=== PATIENT | female | born 1945 | race Caucasian/White ===

== ENCOUNTER → 2016-04-11 | Outpatient (CLI) | payer OTHER ==
[~2016-04-11] MED LIST: ALEN70TA2 PO; ALLO100T PO; ASPI-461 PO; CALC-20 PO; CHOL100027 PO; ENAL1TAB31 PO; HYDR25TA4 PO; LEVO100T PO; LPT/40 PO; METO-551 PO; NRV5 PO; OMEP20CA9 PO
[2016-04-11 13:24] LABS: ALT/SGPT 24 U/L (12-78); AST/SGOT 23 U/L (15-37); BLOOD UREA NITROGEN 19 mg/dl (7-18); BUN/CREATININE RATIO 25.1 (10-20); CALCIUM 8.9 mg/dl (8.5-10.1); CARBON DIOXIDE 29 mmol/L (21-32); CHLORIDE 104 mmol/L (98-107); CREATININE 0.77 mg/dl (0.60-1.20); GLUCOSE 100 mg/dl (70-99); POTASSIUM 3.6 mmol/L (3.5-5.1); SODIUM 141 mmol/L (136-145)
[2016-04-11 13:34] LABS: ALB/GLOB RATIO 0.8 (0.9-2); ALKALINE PHOSPHATASE 75 U/L (45-117); THYROID STIMULATING HORMONE 0.941 uIu/ml (0.300-4.500)
== END | disposition home or self-care (01) ==
LOC: C.LABPVFM 08:19
PROVIDERS: ATTEND Family Medicine
DX: E03.9 Hypothyroidism, unspecified (principal)

== ENCOUNTER → 2016-07-23 | Outpatient (CLI) | payer OTHER ==
[2016-07-23 12:11] LABS: ALT/SGPT 21 U/L (12-78); AST/SGOT 23 U/L (15-37)
[2016-07-23 12:16] LABS: ALT/SGPT 22 U/L (12-78); BLOOD UREA NITROGEN 16 mg/dl (7-18); BUN/CREATININE RATIO 20.7 (10-20); CARBON DIOXIDE 30 mmol/L (21-32); CHLORIDE 104 mmol/L (98-107); CREATININE 0.75 mg/dl (0.60-1.20); GLUCOSE 100 mg/dl (70-99); SODIUM 139 mmol/L (136-145)
[2016-07-23 12:19] LABS: ALB/GLOB RATIO 0.8 (0.9-2); ALKALINE PHOSPHATASE 77 U/L (45-117); AST/SGOT 25 U/L (15-37)
[2016-07-23 12:44] LABS: CHOLESTEROL/HDL RATIO 2.3
== END | disposition home or self-care (01) ==
LOC: C.LABPVFM 08:59
PROVIDERS: ATTEND Internal Medicine Cardiovascular Disease
DX: E78.00 Pure hypercholesterolemia, unspecified (principal); I65.29 Occlusion and stenosis of unspecified carotid artery

== ENCOUNTER → 2016-09-07 | Outpatient (CLI) | payer OTHER ==
--- NOTE | 2016-09-07 16:01 | MAMMOGRAPHY REPORT ---
BILATERAL DIGITAL SCREENING MAMMOGRAM WITH CAD: 09/07/2016 CLINICAL HISTORY: Routine screening. Patient has no complaints. TECHNIQUE: Bilateral CC and MLO views were obtained. Additional CC views were performed with nipple s in profile. Current study was also evaluated with a Computer Aided Detection (CAD) system. COMPARISON: Comparison is made to exams dated: 09/04/2015 mammogram, 08/07/2014 mammogram, 08/04/2013 mamm ogram, 08/03/2012 mammogram, 03/27/2011 mammogram - [facility], and 03/05/2008. BREAST COMPOSITION: The tissue of both breasts is almost entirely fatty. FINDINGS: There is a small cluster of microcalcifications in the central right breast for which tay tional spot magnification views are recommended. There is a benign rim calcification within the left breast. No other suspicious mass, architectural d istortion or cluster of microcalcifications is seen. IMPRESSION: ACR BI-RADS CATEGORY 0: INCOMPLETE EVALUATION: NEED ADDITIONAL IMAGING EVALUATION The small cluster of microcalcifications in the central right breast needs additional evaluation. The patient will be called to schedule an appointment. Approximately 10% of breast cancers are not detected with mammography. A negative mammographic report should not delay biopsy if a clinically suggestive mass is present. Olga Lidia Daniels M.D. ay/:09/07/2016 15:37:38 Sales Engagement Manager: Yovani RIDER(Tito)(M), [facility] letter sent: Addl Imaging 0 BI-RADS Code: ACR BI-RADS Category 0: Incomplete Evaluation: Need Additional Imaging Evaluation
== END | disposition home or self-care (01) ==
LOC: C.MAMM 08:08
PROVIDERS: ATTEND Family Medicine
DX: Z12.31 Encounter for screening mammogram for malignant neoplasm of breast (principal); R92.0 Mammographic microcalcification found on diagnostic imaging of breast

== ENCOUNTER → 2016-09-14 | Outpatient (CLI) | payer OTHER ==
--- NOTE | 2016-09-14 13:13 | MAMMOGRAPHY REPORT ---
UNILATERAL RIGHT DIGITAL DIAGNOSTIC MAMMOGRAM: 09/14/2016 CLINICAL HISTORY: 71-year-old woman called back from screening mammography for a small cluster of rolf rocalcifications in the medial right breast. TECHNIQUE: Spot magnification right CC and ML views were obtained. COMPARISON: Comparison is made to exams dated: 09/07/2016 mammogram, 09/04/2015 mammogram, 08/07/2014 mamm ogram, 08/04/2013 mammogram, 08/03/2012 mammogram, and 03/27/2011 mammogram - [facility] BREAST COMPOSITION: There are scattered areas of fibroglandular density in the right breast. FINDINGS: There is a 3.4 x 1.7 mm cluster of round and punctate microcalcifications and associated n odularity in the approximate 3:00 middle one third of the right breast. When comparing to prior [facility] lable for field mammograms, there appears to be a few more microcalcifications within this grouping c ompared to more remote exams. Although this could represent a degenerating fibroadenoma or fibrocyst ic changes, DCIS cannot be completely excluded. Definitive characterization with tissue sampling is recommended. IMPRESSION: ACR BI-RADS CATEGORY 4B: INTERMEDIATE SUSPICION FOR MALIGNANCY 1. Right breast stereotactic guided biopsy is recommended for an indeterminate 3.4 x 1.7 mm cluster of microcalcifications in the 3:00 right breast. These results and recommendations were discussed with the patient at the time of the exam. She tenta tively scheduled the biopsy prior to leaving our department. Approximately 10% of breast cancers are not detected with mammography. A negative mammographic report should not delay biopsy if a clinically suggestive mass is present. Olga Lidia Daniels M.D. ay/:09/14/2016 10:48:02 Chief Operations Officer: Janet Fisher, [facility] letter sent: Abnormal 4/5 BI-RADS Code: ACR BI-RADS Category 4B: Intermediate Suspicion For Malignancy
== END | disposition home or self-care (01) ==
LOC: C.MAMM 09:38
PROVIDERS: ATTEND Family Medicine
DX: R92.0 Mammographic microcalcification found on diagnostic imaging of breast (principal); I73.9 Peripheral vascular disease, unspecified

== ENCOUNTER → 2016-09-14 | Outpatient (CLI) | payer OTHER ==
--- NOTE | 2016-09-14 12:15 | DIAGNOSTIC IMAGING REPORT ---
ARTERIAL DOPPLER ULTRASOUND LOWER EXTREMITIES BILATERAL CLINICAL HISTORY: INTERMITTENT CLAUDICATION COMPARISON STUDY: No previous studies for comparison. FINDINGS: Brachial arm systolic pressures were 174 mmHg on the right and 156 mmHg on the left. Posterior tibial systolic pressures were 78 mmHg on the right and 110 mmHg on the left. Dorsalis pedis systolic pressures were 53 mmHg on the right and 130 mmHg on the left. This yields diminished ankle arm indices of 0.5 and the right and 0.8 on the left. On the right there is monophasic flow within the right common femoral artery. This is indirect evidence for a more proximal stenosis. There is monophasic flow within the superficial femoral artery, popliteal artery, posterior tibial artery, peroneal artery, and anterior tibial artery. No high velocity jets were visualized. On the left, there is mixed monophasic and biphasic flow within the left common femoral and superficial femoral arteries. There is mixed monophasic and biphasic flow within the popliteal anterior tibial posterior tibial and peroneal arteries. No high velocity jets are visualized. IMPRESSION: 1. Diminished bilateral ankle arm indices of 0.5 in the right and 0.8 on the left 2. Monophasic flow throughout the right lower extremity, and mixed monophasic and biphasic flow throughout the left lower extremity. 3. The findings suggest a more proximal stenosis. Imaging of the aortic and iliac vessels is suggested in follow-up Electronically signed by: Isidoro Hooper M.D. 09/14/2016 12:13 PM Dictated Date/Time: 09/14/2016 12:09 PM
== END | disposition home or self-care (01) ==
LOC: C.ULTR 10:43
PROVIDERS: ATTEND Family Medicine
DX: I73.9 Peripheral vascular disease, unspecified (principal)

== ENCOUNTER → 2016-09-22 | Outpatient (CLI) | payer OTHER ==
--- NOTE | 2016-09-22 13:16 | Discharge Instructions ---
Discharge Instructions Procedure Procedure Date: Sep 22, 2016. Reason for visit: Rt Calcs. Discharge Discharge Date: Sep 22, 2016. Discharge Diagnosis: post right breast stereotactic guided biopsy Medications Restart Stopped Medication(s): May restart Aspirin today. Instructions Activity Recommendations: Additional Limitations (see below) Return to School/Work: no limitations Recommended Home Diet: No Limitations Provider Instructions: ACTIVITY RECOMMENDATIONS: * No lifting, pushing, pulling or exercising the affected side for three days. RETURN TO SCHOOL/WORK: * You may return to work/school after the procedure, but do not perform any strenuous activities for 24 to 48 hours. MEDICATIONS: * Tylenol (two 325 mg) every four to six hours if needed for mild pain (if not allergic to Tylenol). DIET: * Resume previous diet. SPECIAL CARE INSTRUCTIONS: * Keep biopsy site dry for 24 hours. May shower after 24 hours, but do not soak (bathe) incision. * May remove Tegaderm (plastic patch) tomorrow AFTER showering. * Leave the steri-strips on for one week. Allow the steri-strips to fall off by themselves. If not off after one week, you may remove them. You may place a Bandaid crosswise over the strips, if desired. * Apply ice 10 minutes on and 10 minutes off as needed. * Wear a bra at bedtime to sleep more comfortably for 2-3 days. * Your referring physician should have the results after approximately 5 to 7 business days. * Call for unusual bleeding, fever, drainage, etc or if you have any questions call [phone] during normal business hours or after hours call Dr Daniels, . FOLLOW UP VISIT: Follow-up with Referring Physician as scheduled. Allergies Coded Allergies: Acetaminophen (Verified Adverse Reaction, Intermediate, VOMITING, 06/07/14) Hydrocodone (Verified Adverse Reaction, Intermediate, VOMITING, 06/07/14) Marge Christensen Recommendations: Call your doctor if: * Temperature above 101 degrees * Pain not relieved by pain medicine ordered * There is increased drainage or redness from any incision * You have any unanswered questions or concerns. Your Doctors Instructions noted above were prepared by provider Olga Lidia Daniels. Patient Signature Section: Patient Instructions Signature Page Renuka Jones Patient (or Guardian) Signature/Date: I have read and understand the instructions given to me by my caregivers. Caregiver/RN/Doctor Signature/Date: The above-named patient and/or guardian has received patient instructions on this date. + Original Patient Signature Page (only) stays with chart. Please make copy for patient.
--- NOTE | 2016-09-22 14:15 | MAMMOGRAPHY REPORT ---
STEREOTACTIC GUIDED BIOPSY RIGHT BREAST: 09/22/2016 CLINICAL HISTORY: Small indeterminate clustered microcalcifications in the upper inner quadrant of th e right breast. Patient presents for stereotactic biopsy. COMPARISON: Comparison is made to exams dated: 09/14/2016 mammogram, 09/07/2016 mammogram, 09/04/2015 calin mogram, 08/07/2014 mammogram, 08/04/2013 mammogram, and 08/03/2012 mammogram - [facility] . PATIENT CONSENT: After explaining the risks, benefits and alternatives of the procedure to the patien t, informed consent was obtained both verbally and in writing. Specific risks include: Bleeding, inf ection, puncture of adjacent structure, pain, nontarget biopsy, sampling error, metal allergy and med ication reaction. PROCEDURE DESCRIPTION: A time-out was performed and the right breast was confirmed as the site of bio psy. The patient was placed prone on the stereotactic biopsy table and the breast was placed in media llateral compression. A store gift wrap associate image was obtained that demonstrated the clustered microcalcifications in question. They are amenable to sterotactic biopsy. Then +15 and -15 stereo pair images were ob tained. The calcifications were targeted utilizing the coordinates obtained by the computer. The ski n was prepped with Betadine. 1% Lidocaine with and without epinipherine was administered as local ane sthesia. A small skin incision was made. Through the incision, the needle was inserted to the depth determined by the computer. 9 samples were obtained using a [employer] 9-gauge vacuum-assisted biops y device. The specimen radiograph demonstrated several registration representative microcalcifications, therefore, a metallic marker was placed at the biopsy site. There was no immediate complication. Hemostasis was achieved after several minutes of manual compression. The samples were sent to pathology in two mariajose ropriately labeled containers, "with calcifications" and "without calcifications". All of the samples were obtained from the same single biopsy site. Postprocedure CC and ML views of the right breast were obtained. A new metallic biopsy marker is se en in the upper outer quadrant and there is no significant postbiopsy hematoma. (The calcifications were previously located in the upper inner quadrant) Based on the CC projection, the biopsy marker is displaced laterally by 4 cm from the prior location of the calcifications. It likely deployed towar ds the distal end of the biopsy cavity as opposed to the center. This is noted in case any further e xcisional biopsy is needed. IMPRESSION: STEREOTACTIC GUIDED BIOPSY Status post right breast stereotactic guided biopsy of a small cluster of microcalcifications in the upper inner quadrant. A biopsy marker was placed at the site, but is displaced laterally towards the distal end of the biopsy cavity. The patient will receive notification of the biopsy results from her referring physician. Olga Lidia aDniels M.D. ay/:09/22/2016 13:34:54 Tube Carrier: Rosangela RIDER(Tito)([place]), [facility]
--- NOTE | 2016-09-22 14:15 | MAMMOGRAPHY REPORT ---
UNILATERAL RIGHT DIGITAL DIAGNOSTIC MAMMOGRAM: 09/22/2016 CLINICAL HISTORY: Status post right breast stereotactic biopsy of a small cluster of microcalcificati ons in the upper inner quadrant of the right breast. Please refer to the report from right breast stereotactic biopsy performed at the same time for full detail. IMPRESSION: POST PROCEDURE IMAGING FOR MARKER PLACEMENT Please refer to the report from right breast stereotactic biopsy performed at the same time for full detail. Approximately 10% of breast cancers are not detected with mammography. A negative mammographic report should not delay biopsy if a clinically suggestive mass is present. Olga Lidia Daniels M.D. ay/:09/22/2016 13:18:27 Woven Label Designer: Rosangela BEAULIEU)([place]), [facility] BI-RADS Code: Post Procedure Imaging For Marker Placement
== END | disposition home or self-care (01) ==
LOC: C.MAMM 12:19
PROVIDERS: ATTEND Family Medicine
DX: R92.0 Mammographic microcalcification found on diagnostic imaging of breast (principal)

== ENCOUNTER → 2017-01-20 | Outpatient (CLI) | payer OTHER ==
[2017-01-20 13:20] LABS: CHOLESTEROL/HDL RATIO 2.3
== END | disposition home or self-care (01) ==
LOC: C.LABPVFM 09:04
PROVIDERS: ATTEND Internal Medicine Cardiovascular Disease
DX: E78.00 Pure hypercholesterolemia, unspecified (principal)

== ENCOUNTER → 2017-04-29 | Outpatient (CLI) | payer OTHER ==
[2017-04-29 13:39] LABS: BLOOD UREA NITROGEN 19 mg/dl (7-18); CALCIUM 9.3 mg/dl (8.5-10.1); CARBON DIOXIDE 30 mmol/L (21-32); CREATININE 0.76 mg/dl (0.60-1.20); GLUCOSE 96 mg/dl (70-99); POTASSIUM 3.7 mmol/L (3.5-5.1); SODIUM 139 mmol/L (136-145)
== END | disposition home or self-care (01) ==
LOC: C.LABPVFM 08:02
PROVIDERS: ATTEND Family Medicine
DX: I10 Essential (primary) hypertension (principal); E03.9 Hypothyroidism, unspecified

== ENCOUNTER → 2017-07-30 | Outpatient (CLI) | payer OTHER | END | disposition home or self-care (01) | LOC: C.LABPVFM 07:51 | PROVIDERS: ATTEND Family Medicine | DX: E78.00 Pure hypercholesterolemia, unspecified (principal); E03.9 Hypothyroidism, unspecified; I25.10 Atherosclerotic heart disease of native coronary artery without angina pectoris ==

== ENCOUNTER 2020-06-20 11:46 | Inpatient (IN) ==
[2020-06-20] MEDS ORDERED: SODIUM CHLORIDE 0.9% 500 ML IV ONE (12:30)
[2020-06-20 12:58] LABS: Alanine Aminotransferase 31 U/L (12-78); Albumin Level 3.4 gm/dl (3.4-5.0); Aspartate Aminotransferase 31 U/L (15-37); BUN Creatinine Ratio 23.7 (10-20); Bilirubin Direct < 0.1 mg/dl (0-0.2); Blood Urea Nitrogen 21 mg/dl (7-18); Calcium 8.7 mg/dl (8.5-10.1); Carbon Dioxide 27 mmol/L (21-32); Chloride 108 mmol/L (98-107); Creatinine Clr Calc Pharmacy 54.5 ml/min; Est GFR (African American) 72.5; Est GFR (Non-African American) 62.5; Glucose 95 mg/dl (70-99); Lipase 260 U/L (73-393); Magnesium 1.5 mg/dl (1.8-2.4); Potassium 3.8 mmol/L (3.5-5.1); Sodium 140 mmol/L (136-145)
[2020-06-20 13:06] LABS: Albumin Globulin Ratio 0.8 (0.9-2); Alkaline Phosphatase 84 U/L (45-117); Bilirubin,Total 0.3 mg/dl (0.2-1); Globulin 4.3 gm/dl (2.5-4.0); Phosphorus 3.4 mg/dl (2.5-4.9); Total Protein 7.7 gm/dl (6.4-8.2); Troponin I < 0.015 ng/ml (0-0.045)
--- NOTE | 2020-06-20 13:11 | XRay Report ---
XR chest 1V portable HISTORY: Atypical Chest Pain COMPARISON: Chest 06/09/2014. FINDINGS: No pneumothorax. No pleural effusions. The cardiac silhouette remains mildly enlarged. Ther e are poststernotomy changes. No evidence for pulmonary edema. No new focal lung consolidations to mendez ggest pneumonia. Slightly rotated study. Emphysema. IMPRESSION: Stable mild cardiomegaly and emphysema. Otherwise, no acute process within the chest. ACT 112: Negative or not required by law. Electronically signed by: Jordan Donato M.D. 06/20/2020 1:09 PM
[2020-06-20 13:28] LABS: Appearance Urine Clear (Clear); Bacteria Urine Automated Negative (Negative); Bilirubin Urine Negative (Negative); Blood Urine Trace (Negative); Cast Urine Automated 0 /lpf (0-5); Color Urine Yellow; Epithelial Cell Urine Auto 20-30 /lpf (0-5); Glucose Urine UA Negative (Negative); Ketones Urine Negative (Negative); Leukocyte Esterase Urine Negative (Negative); Nitrite Urine Negative (Negative); Protein Urine 2+ (Negative); Specific Gravity Urine 1.012 (1.000-1.030); Urobilinogen Urine Negative (Negative)
[2020-06-20 13:32] LABS: Basophils # (auto) 0.01 K/uL (0-0.2); Basophils % (auto) 0.2 %; Eosinophils # (auto) 0.07 K/uL (0-0.5); Eosinophils % (auto) 1.1 %; Hematocrit (blood only) 38.4 % (37-47); Hemoglobin 12.8 g/dL (12.0-16.0); Immature Granulocytes # (auto) 0.01 K/uL (0.00-0.02); Immature Granulocytes % (auto) 0.2 %; Lymphocytes % (auto) 30.3 %; Mean Corpuscular Hgb Conc 33.3 g/dL (32-36); Mean Corpuscular Volume 87.1 fL (80-100); Mean Platelet Volume 11.5 fL (7.4-10.4); Monocytes # (auto) 0.61 K/uL (0.11-0.59); Monocytes % (auto) 9.2 %; Neutrophils # (auto) 3.91 K/uL (1.4-6.5); Platelet Count 181 K/uL (130-400); RBC Morphology Unremarkable; RDW Coefficient of Variation 13.9 % (11.5-14.5); RDW Standard Deviation 44.3 fL (36.4-46.3); Red Blood Count 4.41 M/uL (4.2-5.4); White Blood Count 6.61 K/uL (4.8-10.8)
--- NOTE | 2020-06-20 13:34 | Emergency Department Note ---
Impression & Plan Heart block AV complete, Hypertension, Dizziness, Hypomagnesemia ED Provider Note NAME: NAKUL CHRISTINA AGE: 75 SEX: F ARRIVES VIA: Ambulance INFORMANT: Patient, ED PROVIDER(S): Jelani Bobby MD CHIEF COMPLAINT: Dizziness PLAN: Disposition: Admit MEDICAL DECISION MAKING: The patient is a pleasant 75-year-old woman with a past medical history of CAD/NSTEMI, hypertension, hyperlipidemia, aortic stenosis who presents emergency department after feeling lightheaded when she was at the grocery store after standing up from bending down to get something off a lower shelf. Upon arrival she reports the symptoms have essentially resolved. She denies any recent illness including fevers, chills, cough, congestion, GI or symptoms. She reports she has completed both series of her COVID-19 vaccination. She did have Covid-19 in March 2020. On arrival the patient is fatigued appearing but no distress, afebrile with blood pressure elevated 220/70s and otherwise stable vital signs. On exam the patient appears clinically dry. She has no focal neurologic deficits. Initial EKG interpreted by machine to be A. fib however close review suggests most likely sinus rhythm with first-degree AV block with intermittent PVCs, right bundle branch block is similar to June 2014 though component of left anterior fascicular block is new. Chest x-ray negative for acute cardiopulmonary process. WBC, H/H and platelets within normal limits. Chemistry without metabolic acidosis. BUN/creatinine> 20 consistent with the patient's clinically dry appearance. Magnesium 1.5 with repletion provided. Electrolytes otherwise unremarkable. Troponin negative/undetectable. TSH within normal limits. UA without convincing evidence of infection. COVID-19 RNA, NAAT was negative. On reevaluation the patient did feel some improvement after hydration however when she attempted to stand up and ambulate she became severely dizzy again and so given the patient's persistent symptoms CTA of the head and neck was ordered. Repeat EKG was performed and heart rate had decreased to 60 bpm suspicion for possible second-degree Mobitz type I block versus first-degree AV block with atrial ectopic beats. CT of the head and neck with subsequent unremarkable without ICH, ischemia or severe narrowing occlusion of large vessels. I did review the patient's results with her at the bedside and she ultimately was agreeable with plan for admission given her continued symptoms. The patient's persistent elevated blood pressure having missed her medications she was given her dose of enalapril however metoprolol was held given her bradycardia. Subsequently, the patient had spontaneous episode of complete heart block where at least 6-7 atrial beats were nonconducting ~3-4s which correlated to patient's complaint of feeling as though she was going to blackout. Pacer pads were placed on the patient's chest as a precaution. Following her episode repeat EKG appeared to show Mobitz type I block versus atrial ectopic rhythm with HR 50s. Case was discussed with Dr. Faith, [facility] hospitalist, who will evaluate the patient for admission. Case was also reviewed with Dr. Allen, [place] cardiology on-call, who was already aware of the patient from admitting team. Agrees with pacer pads as precaution and trial of Atropine for repeat symptomatic episode and close monitoring given high grade block. Triage Nursing notes reviewed and agree them. Prior medical records reviewed Vital Signs: reviewed and remarkable for Hypertension, bradycardia Differential diagnosis: Benign positional vertigo, dehydration, hypovolemia, anemia, tumor, infection, hypoglycemia, electrolyte abnormalities, cardiac sources, intracerebral event, toxicologic, neurologic, as well as other pathologies. ER treatment provided: See below. Diagnostics interpreted by me: ECG: Sinus rhythm, 80 bpm, intermittent PVCs, first-degree AV block, right bundle branch block and left anterior fascicular block, no overt ST elevation. Right bundle branch block similar to June 2014 Cardiac Monitoring: An order for continuous cardiac monitoring was placed and demonstrated sinus bradycardia, 51 bpm, intermittent PVCs. Laboratory studies: See below Imaging studies: XR chest 1V portable HISTORY: Atypical Chest Pain COMPARISON: Chest 06/09/2014. FINDINGS: No pneumothorax. No pleural effusions. The cardiac silhouette remains mildly enlarged. There are poststernotomy changes. No evidence for pulmonary edema. No new focal lung consolidations to suggest pneumonia. Slightly rotated study. Emphysema. IMPRESSION: Stable mild cardiomegaly and emphysema. Otherwise, no acute process within the chest. ACT 112: Negative or not required by law. -- HEAD CT NONCONTRAST CT DOSE: HISTORY: dizziness, imbalance TECHNIQUE: Multiaxial CT images of the head were performed without the use of intravenous contrast. Automated exposure control was utilized for this study. A dose lowering technique was utilized adhering to the principles of ALARA. Comparison: None. Findings: The paranasal sinuses and mastoid air cells are clear. The calvarium and skull base are intact. The ventricles and sulci are within normal limits. There is no mass, hematoma, midline shift, or acute infarct. Impression: No acute intracranial abnormality. ACT 112: Negative or not required by law. HEAD & NECK CTA HISTORY: dizziness, imbalance TECHNIQUE: Multiaxial CT images of the head were performed following the intravenous administration of contrast to evaluate the major cerebral vessels. Multiaxial CT images of the neck were also performed following the intravenous administration of contrast to evaluate the major cervical vessels. Maximum intensity projection images were also obtained. A dose lowering technique was utilized adhering to the principles of ALARA. COMPARISON: None. FINDINGS: There is no mass, hematoma, midline shift, or acute infarct. Visualized intracranial internal carotid arteries, distal vertebral arteries, and basilar artery are widely patent. There is a 3 mm right supraclinoid ICA aneurysm best seen on image 118 of series 5. There is no significant stenosis, occlusion, or aneurysm seen within the bilateral ACAs, MCAs, or music educator. The major dural venous sinuses appear patent. The aortic arch and proximal great vessels are widely patent. There is no significant stenosis, occlusion, or dissection identified within the bilateral common carotid, internal carotid, or vertebral arteries. Severe emphysema. Poststernotomy changes. IMPRESSION: 1. A 3 mm right supraclinoid ICA aneurysm. 2. No significant stenosis or occlusion within the [place]. 3. No significant stenosis, occlusion, or dissection identified within the carotid or vertebral arteries. ACT 112: Negative or not required by law. Electronically signed by: Jordan Donato M.D. 06/20/2020 4:36 PM Consultation(s): Dr. Faith, [facility] hospitalist. Dr. Allen, [place] cardiology on-call HPI: The patient is a pleasant 75-year-old woman with a past medical history of CAD/NSTEMI, hypertension, hyperlipidemia, aortic stenosis who presents emergency department after feeling lightheaded when she was at the grocery store after standing up from bending down to get something off a lower shelf. Upon arrival she reports the symptoms have essentially resolved. She denies any recent illness including fevers, chills, cough, congestion, GI or symptoms. She reports she has completed both series of her COVID-19 vaccination. She did have Covid-19 in March 2020. ROS: See above HPI for pertinent positives & negatives. A total of 10 systems reviewed and were otherwise negative. PAST MEDICAL HISTORY:See Below PAST SURGICAL HISTORY:See Below FAMILY HISTORY:See Below SOCIAL HISTORY:See Below HOME MEDICATIONS:See Below ALLERGIES:See Below VITALS:See Below PHYSICAL EXAMINATION: GENERAL: Awake, alert, fatigued-appearing, in no distress HENT: Normocephalic, atraumatic. Oropharynx with dry mucous membranes and otherwise unremarkable. EYES: Normal conjunctiva. Sclera non-icteric. NECK: Supple. No nuchal rigidity. FROM. No JVD. RESPIRATORY: Clear to auscultation. CARDIAC: Regular rate, normal rhythm. Extremities warm and well perfused. Pulses equal. ABDOMEN: Soft, non-distended. No tenderness to palpation. No rebound or guarding. No masses. RECTAL: Deferred. MUSCULOSKELETAL: Chest examination reveals no tenderness. The back is symmetrical on inspection without obvious abnormality. There is no CVA tenderness to palpation. No joint edema. LOWER EXTREMITIES: Calves are equal size bilaterally and non-tender. No edema. No discoloration. NEURO: Normal sensorium. No sensory or motor deficits noted. 5/5 strength and SILT x 4 extremities. Cerebellar function intact including [id number], alternating palms, [id number]. SKIN: No rash or jaundice noted. ED COURSE: Critical Care: I have personally spent greater than 35 minutes of critical care time in the direct management of this patient. This includes bedside care, interpretation of diagnostic studies, and testing, discussion with consultants, patient, and family members, and other required patient management activities. This 35 minutes is in excess of all separately billable procedures. Jelani Bobby MD Past Med/Surg History Medical History Ambulatory dysfunction Aortic stenosis Arteriosclerotic cardiovascular disease Carotid atherosclerosis Cerebral artery occlusion Eczema Gout HTN (hypertension) Hypercholesterolemia Hyperglycemia Hyperlipidemia Hypothyroidism Intermittent claudication Osteoporosis Radiculopathy Surgical History Hx of heart surgery Hx of knee surgery Family History Mother Alcohol abuse H/O oral cancer Brother Parkinson disease, symptomatic Colon cancer Denies family history of Ovarian cancer Prostate cancer Myocardial infarction Breast cancer Colorectal cancer Social History Smoking Status: Former smoker Second Hand Exposure: No; Do You Dip or Chew Tobacco: No; Tobacco Cessation Education Requested by Patient: No Hx Alcohol Use: No Hx Substance Use: No Preferred Language: Sami Communication Ability: Effective Beliefs That Will Affect Care: None marital status: Current Living Situation: Spouse current occupational status: retired Other Information That Helps Us Care for You: No Feels Safe at Home: Yes Safety Concerns: Feels Safe At This Time caffeine: No Dental Care, Regularly: Yes Physical Activity Frequency: Daily Seatbelt Use: always Sunscreen Use: Yes Assistive Devices: Denture - Upper and Glasses Allergies Allergies Allergy/AdvReac Type Severity Reaction Status Date / Time acetaminophen AdvReac Intermediate VOMITING Verified 06/20/20 14:26 hydrocodone AdvReac Intermediate VOMITING Verified 06/20/20 14:26 Home Meds Home Medications Medication Instructions Recorded Confirmed cholecalciferol (vitamin D3) 25 1,000 units PO DAILY 11/16/18 06/20/20 mcg (1,000 unit) capsule hydrochlorothiazide 25 mg tablet 25 mg PO DAILY tab 11/23/19 06/20/20 aspirin [Adult Aspirin Regimen] 81 mg PO QAM 06/20/20 06/20/20 Previous Rx's Medication Instructions Recorded atorvastatin 20 mg tablet 20 mg PO QPM #90 tab 09/14/19 enalapril maleate 20 mg tablet 20 mg PO BID #180 tab 09/14/19 omeprazole 20 mg capsule,delayed 20 mg PO DAILY #90 cap 11/02/19 release metoprolol succinate 100 mg 100 mg PO BID #180 tab 03/25/20 tablet,extended release 24 hr allopurinol 100 mg tablet 100 mg PO DAILY #90 ea 04/02/20 levothyroxine 88 mcg tablet 88 mcg PO DAILY #90 ea 04/02/20 Results & Data (ED) Vital Signs Vital Signs - 24 hr 06/20/20 11:46 06/20/20 13:01 06/20/20 13:05 Temperature 36.7 C Temperature Source Oral Pulse Rate 79 68 79 Pulse Rate [Apical] 79 80 Pulse Rate from SpO2 Sensor Pulse Rhythm Irregular Irregular Pulse Rhythm [Apical] Irregular Pulse Strength Normal Pulse Strength [Apical] Normal Respiratory Rate 16 21 20 Respiratory Effort / Characteristics Non-Labored Spontaneous Respiratory Depth Normal Respiratory Pattern Regular Blood Pressure 220/72 H 225/77 H Blood Pressure [Right Arm] 220/72 H 181/128 H Blood Pressure Mean 121 126 Blood Pressure Mean [Right Arm] 121 145 Blood Pressure Position Lying Blood Pressure Position [Right Arm] Lying Pulse Oximetry 95 95 98 Oxygen Delivery Method Room Air Room Air Sepsis Recent Fever Within 48 Hours No Sepsis New/Unexplained Change in Mental Status N/A Sepsis Action Taken by Nursing No Action Required 06/20/20 13:25 06/20/20 13:30 06/20/20 13:31 Temperature Temperature Source Pulse Rate 71 80 79 Pulse Rate [Apical] Pulse Rate from SpO2 Sensor Pulse Rhythm Pulse Rhythm [Apical] Pulse Strength Pulse Strength [Apical] Respiratory Rate 14 17 21 Respiratory Effort / Characteristics Respiratory Depth Respiratory Pattern Blood Pressure 205/96 H Blood Pressure [Right Arm] Blood Pressure Mean 132 Blood Pressure Mean [Right Arm] Blood Pressure Position Blood Pressure Position [Right Arm] Pulse Oximetry 95 96 95 Oxygen Delivery Method Sepsis Recent Fever Within 48 Hours Sepsis New/Unexplained Change in Mental Status Sepsis Action Taken by Nursing 06/20/20 13:32 06/20/20 14:00 06/20/20 14:02 Temperature Temperature Source Pulse Rate 76 68 76 Pulse Rate [Apical] Pulse Rate from SpO2 Sensor 72 76 Pulse Rhythm Pulse Rhythm [Apical] Pulse Strength Pulse Strength [Apical] Respiratory Rate 20 18 20 Respiratory Effort / Characteristics Respiratory Depth Respiratory Pattern Blood Pressure 227/91 H Blood Pressure [Right Arm] Blood Pressure Mean 136 Blood Pressure Mean [Right Arm] Blood Pressure Position Blood Pressure Position [Right Arm] Pulse Oximetry 97 96 Oxygen Delivery Method Sepsis Recent Fever Within 48 Hours Sepsis New/Unexplained Change in Mental Status Sepsis Action Taken by Nursing 06/20/20 14:06 06/20/20 14:07 06/20/20 14:30 Temperature Temperature Source Pulse Rate 74 70 67 Pulse Rate [Apical] Pulse Rate from SpO2 Sensor 74 71 66 Pulse Rhythm Pulse Rhythm [Apical] Pulse Strength Pulse Strength [Apical] Respiratory Rate 19 16 21 Respiratory Effort / Characteristics Respiratory Depth Respiratory Pattern Blood Pressure 236/84 H Blood Pressure [Right Arm] Blood Pressure Mean 134 Blood Pressure Mean [Right Arm] Blood Pressure Position Blood Pressure Position [Right Arm] Pulse Oximetry 98 97 95 Oxygen Delivery Method Sepsis Recent Fever Within 48 Hours Sepsis New/Unexplained Change in Mental Status Sepsis Action Taken by Nursing 06/20/20 14:31 06/20/20 14:32 06/20/20 15:00 Temperature Temperature Source Pulse Rate 65 74 Pulse Rate [Apical] Pulse Rate from SpO2 Sensor 71 76 50 L Pulse Rhythm Pulse Rhythm [Apical] Pulse Strength Pulse Strength [Apical] Respiratory Rate 17 18 22 Respiratory Effort / Characteristics Respiratory Depth Respiratory Pattern Blood Pressure 214/89 H Blood Pressure [Right Arm] Blood Pressure Mean 130 Blood Pressure Mean [Right Arm] Blood Pressure Position Blood Pressure Position [Right Arm] Pulse Oximetry 96 96 93 Oxygen Delivery Method Sepsis Recent Fever Within 48 Hours Sepsis New/Unexplained Change in Mental Status Sepsis Action Taken by Nursing 06/20/20 15:30 06/20/20 16:31 06/20/20 16:40 Temperature Temperature Source Pulse Rate 57 L 56 L 44 L Pulse Rate [Apical] Pulse Rate from SpO2 Sensor 59 L 45 L 44 L Pulse Rhythm Pulse Rhythm [Apical] Pulse Strength Pulse Strength [Apical] Respiratory Rate 16 21 19 Respiratory Effort / Characteristics Respiratory Depth Respiratory Pattern Blood Pressure 213/59 H Blood Pressure [Right Arm] Blood Pressure Mean 110 Blood Pressure Mean [Right Arm] Blood Pressure Position Blood Pressure Position [Right Arm] Pulse Oximetry 94 96 95 Oxygen Delivery Method Sepsis Recent Fever Within 48 Hours Sepsis New/Unexplained Change in Mental Status Sepsis Action Taken by Nursing 06/20/20 17:01 06/20/20 17:31 Temperature Temperature Source Pulse Rate 45 L 44 L Pulse Rate [Apical] Pulse Rate from SpO2 Sensor 45 L 44 L Pulse Rhythm Pulse Rhythm [Apical] Pulse Strength Pulse Strength [Apical] Respiratory Rate 13 19 Respiratory Effort / Characteristics Respiratory Depth Respiratory Pattern Blood Pressure 227/79 H 235/72 H Blood Pressure [Right Arm] Blood Pressure Mean 128 126 Blood Pressure Mean [Right Arm] Blood Pressure Position Blood Pressure Position [Right Arm] Pulse Oximetry 95 95 Oxygen Delivery Method Sepsis Recent Fever Within 48 Hours Sepsis New/Unexplained Change in Mental Status Sepsis Action Taken by Nursing Laboratory Data Attestation: I reviewed the patient's lab results. Result diagrams: 06/20/20 12:09 06/20/20 20:53 Lab Results 06/20/20 06/20/20 06/20/20 Range/Units 12:04 12:09 12:09 WBC 6.61 (4.8-10.8) K/uL RBC 4.41 (4.2-5.4) M/uL Hgb 12.8 (12.0-16.0) g/dL POC Hgb (12.0-16.0) g/dl Hct 38.4 (37-47) % POC Hct (37-47) % MCV 87.1 (80-100) fL MCH 29.0 (25-34) pg MCHC 33.3 (32-36) g/dL RDW Std Deviation 44.3 (36.4-46.3) fL RDW Coeff of Chani 13.9 (11.5-14.5) % Plt Count 181 (130-400) K/uL MPV 11.5 H (7.4-10.4) fL Immature Gran % (Auto) 0.2 % Neut % (Auto) 59.0 % Lymph % (Auto) 30.3 % [place] % (Auto) 9.2 % Eos % (Auto) 1.1 % Baso % (Auto) 0.2 % Neut # (Auto) 3.91 (1.4-6.5) K/uL Lymph # (Auto) 2.00 (1.2-3.4) K/uL [place] # (Auto) 0.61 H (0.11-0.59) K/uL Eos # (Auto) 0.07 (0-0.5) K/uL Baso # (Auto) 0.01 (0-0.2) K/uL Immature Gran # (Auto) 0.01 (0.00-0.02) K/uL RBC Morphology Unremarkable POC Sodium (135-144) mmol/L Sodium 140 (136-145) mmol/L POC Potassium (3.3-5.0) mmol/L Potassium 3.8 (3.5-5.1) mmol/L POC Chloride (101-112) mmol/L Chloride 108 H (98-107) mmol/L Carbon Dioxide 27 (21-32) mmol/L POC Total CO2 (24-31) mmol/L Anion Gap 5.0 (3-11) POC Anion Gap (16-25) mmol/L POC BUN (7-18) mg/dl BUN 21 H (7-18) mg/dl Creatinine 0.90 (0.6-1.2) mg/dl POC Creatinine (0.6-1.3) mg/dl Est Cr Clr Drug Dosing 54.5 ml/min Est GFR ( Amer) 72.5 Est GFR (Non-Af Amer) 62.5 BUN/Creatinine Ratio 23.7 H (10-20) Glucose 95 (70-99) mg/dl POC Glucose 98 (70-99) mg/dl POC Glucose (other) (70-99) mg/dl Calcium 8.7 (8.5-10.1) mg/dl POC Ioniz Calcium [place] (1.12-1.32) mmol/l Phosphorus 3.4 (2.5-4.9) mg/dl Magnesium 1.5 L (1.8-2.4) mg/dl Total Bilirubin 0.3 (0.2-1) mg/dl Direct Bilirubin < 0.1 (0-0.2) mg/dl AST 31 (15-37) U/L ALT 31 (12-78) U/L Alkaline Phosphatase 84 (45-117) U/L Troponin I < 0.015 (0-0.045) ng/ml Total Protein 7.7 (6.4-8.2) gm/dl Albumin 3.4 (3.4-5.0) gm/dl Globulin 4.3 H (2.5-4.0) gm/dl Albumin/Globulin Ratio 0.8 L (0.9-2) Lipase 260 (73-393) U/L TSH 1.660 (0.300-4.500) uIu/ml Urine Color Urine Appearance (Clear) Urine pH (4.5-7.5) Ur Specific [place] (1.000-1.030) Urine Protein (Negative) Urine Glucose (UA) (Negative) Urine Ketones (Negative) Urine Blood (Negative) Urine Nitrite (Negative) Urine Bilirubin (Negative) Urine Urobilinogen (Negative) Ur Leukocyte Esterase (Negative) Urine WBC (Auto) (0-5) /hpf Urine RBC (Auto) (0-4) /hpf U Hyaline Cast (Auto) (0-5) /lpf U Epithel Cells (Auto) (0-5) /lpf Urine Bacteria (Auto) (Negative) 06/20/20 06/20/20 Range/Units 12:57 17:35 WBC (4.8-10.8) K/uL RBC (4.2-5.4) M/uL Hgb (12.0-16.0) g/dL POC Hgb 12.6 (12.0-16.0) g/dl Hct (37-47) % POC Hct 37 (37-47) % MCV (80-100) fL MCH (25-34) pg MCHC (32-36) g/dL RDW Std Deviation (36.4-46.3) fL RDW Coeff of Chani (11.5-14.5) % Plt Count (130-400) K/uL MPV (7.4-10.4) fL Immature Gran % (Auto) % Neut % (Auto) % Lymph % (Auto) % [place] % (Auto) % Eos % (Auto) % Baso % (Auto) % Neut # (Auto) (1.4-6.5) K/uL Lymph # (Auto) (1.2-3.4) K/uL [place] # (Auto) (0.11-0.59) K/uL Eos # (Auto) (0-0.5) K/uL Baso # (Auto) (0-0.2) K/uL Immature Gran # (Auto) (0.00-0.02) K/uL RBC Morphology POC Sodium 138 (135-144) mmol/L Sodium (136-145) mmol/L POC Potassium 3.7 (3.3-5.0) mmol/L Potassium (3.5-5.1) mmol/L POC Chloride 101 (101-112) mmol/L Chloride (98-107) mmol/L Carbon Dioxide (21-32) mmol/L POC Total CO2 29 (24-31) mmol/L Anion Gap (3-11) POC Anion Gap 12.0 L (16-25) mmol/L POC BUN 18 (7-18) mg/dl BUN (7-18) mg/dl Creatinine (0.6-1.2) mg/dl POC Creatinine 0.7 (0.6-1.3) mg/dl Est Cr Clr Drug Dosing ml/min Est GFR ( Amer) Est GFR (Non-Af Amer) BUN/Creatinine Ratio (10-20) Glucose (70-99) mg/dl POC Glucose (70-99) mg/dl POC Glucose (other) 118 H (70-99) mg/dl Calcium (8.5-10.1) mg/dl POC Ioniz Calcium [place] 1.17 (1.12-1.32) mmol/l Phosphorus (2.5-4.9) mg/dl Magnesium (1.8-2.4) mg/dl Total Bilirubin (0.2-1) mg/dl Direct Bilirubin (0-0.2) mg/dl AST (15-37) U/L ALT (12-78) U/L Alkaline Phosphatase (45-117) U/L Troponin I (0-0.045) ng/ml Total Protein (6.4-8.2) gm/dl Albumin (3.4-5.0) gm/dl Globulin (2.5-4.0) gm/dl Albumin/Globulin Ratio (0.9-2) Lipase (73-393) U/L TSH (0.300-4.500) uIu/ml Urine Color Yellow Urine Appearance Clear (Clear) Urine pH 7.0 (4.5-7.5) Ur Specific [place] 1.012 (1.000-1.030) Urine Protein 2+ H (Negative) Urine Glucose (UA) Negative (Negative) Urine Ketones Negative (Negative) Urine Blood Trace H (Negative) Urine Nitrite Negative (Negative) Urine Bilirubin Negative (Negative) Urine Urobilinogen Negative (Negative) Ur Leukocyte Esterase Negative (Negative) Urine WBC (Auto) 1-5 (0-5) /hpf Urine RBC (Auto) 5-10 H (0-4) /hpf U Hyaline Cast (Auto) 0 (0-5) /lpf U Epithel Cells (Auto) 20-30 H (0-5) /lpf Urine Bacteria (Auto) Negative (Negative) Administered Medications Atorvastatin Calcium (Atorvastatin 20 Mg Tab) 20 mg PO QPM [facility] Stop: 07/20/20 20:59 Last Admin: 06/20/20 22:56 Dose: Not Given Documented by: [id number] Discontinued Medications Atropine Sulfate (Atropine Sulfate 0.1 Mg/Ml 10ml Syr) Confirm Administered Dose 1 mg IV .[facility]-MED ONE Stop: 06/20/20 21:09 Last Admin: 06/20/20 22:44 Dose: Not Given Documented by: [id number] Enalapril Maleate (Enalapril Maleate 10 Mg Tab) 20 mg PO NOW STA Stop: 06/20/20 17:04 Last Admin: 06/20/20 18:12 Dose: 20 mg Documented by: [id number] Fentanyl Citrate (Fentanyl Citrate 100 Mcg/2 Ml Vial) Confirm Administered Dose 100 mcg .ROUTE .STK-MED ONE Stop: 06/20/20 21:06 Last Admin: 06/20/20 22:43 Dose: Not Given Documented by: [id number] Heparin Sodium (Porcine) (Heparin (Porcine) 1000 Unit/Ml 10 Ml (Sheet Metal Superintendent Use Only)) Confirm Administered Dose 10,000 units .ROUTE .STK-MED ONE Stop: 06/20/20 21:06 Last Admin: 06/20/20 22:43 Dose: Not Given Documented by: [id number] Heparin Sodium/Sodium Chloride (Heparin In Nss Infusion 1000 Unit/500 Ml (2 U/Ml) Bag) Confirm Administered Dose 3,000 units IV .STK-MED ONE Stop: 06/20/20 21:06 Last Admin: 06/20/20 22:43 Dose: Not Given Documented by: [id number] Sodium Chloride (Nss) 500 mls @ 999 mls/hr IV .Q31M ONE Stop: 06/20/20 13:00 Last Infusion: 06/20/20 13:28 Dose: 0 mls/hr Documented by: [id number] Admin: 06/20/20 12:57 Dose: 999 mls/hr Documented by: [id number] Magnesium Sulfate/Dextrose (Magnesium Sulfate / D5w) 1 gm in 100 mls @ 100 mls/hr IV Q1H [facility] Stop: 06/20/20 15:57 Last Infusion: 06/20/20 17:31 Dose: 0 mls/hr Documented by: [id number] Admin: 06/20/20 16:31 Dose: 100 mls/hr Documented by: [id number] Infusion: 06/20/20 15:15 Dose: 0 mls/hr Documented by: [id number] Admin: 06/20/20 14:14 Dose: 100 mls/hr Documented by: [id number] Ioversol (Optiray 320 125ml) 118 ml IV ONCE ONE Stop: 06/20/20 16:22 Last Admin: 06/20/20 16:21 Dose: 118 ml Documented by: [id number] Midazolam HCl (Midazolam Hcl 1 Mg/Ml 2ml Vial) Confirm Administered Dose 2 mg .ROUTE .STK-MED ONE Stop: 06/20/20 21:06 Last Admin: 06/20/20 22:43 Dose: Not Given Documented by: [id number] Nicardipine HCl (Nicardipine Hcl Inj 2.5 Mg/Ml 10 Ml Amp) Confirm Administered Dose 25 mg .ROUTE .STK-MED ONE Stop: 06/20/20 21:06 Last Admin: 06/20/20 22:43 Dose: Not Given Documented by: [id number] Nitroglycerin/Dextrose (Nitroglycerin/D5w 100mcg/Ml 20ml Syr) Confirm Administered Dose 2,000 mcg .ROUTE .STK-MED ONE Stop: 06/20/20 21:07 Last Admin: 06/20/20 22:44 Dose: Not Given Documented by: [id number] Discharge Plan Visit Data Chief Complaint: Dizziness Stated Complaint: WEAKNESS, DIZZINESS ED Provider: Jelani Bobby Discharge Problem: Heart block AV complete, Hypertension, Dizziness, Hypomagnesemia Patient Disposition: Admitted As Inpatient Discharge Instructions Interventions: ED Discharge Assessment Last Done: 06/20/20 19:23
[2020-06-20] MEDS: MAGNESIUM SULFATE / D5W 1 GM/100 ML BAG IV SCH ×2 (14:14→16:31)
[2020-06-20] MEDS ORDERED: OPTIRAY 320 125ml IV ONE (16:21)
--- NOTE | 2020-06-20 16:32 | CT Scan Report ---
HEAD CT NONCONTRAST CT DOSE: HISTORY: dizziness, imbalance TECHNIQUE: Multiaxial CT images of the head were performed without the use of intravenous contrast. A utomated exposure control was utilized for this study. A dose lowering technique was utilized adheri ng to the principles of ALARA. Comparison: None. Findings: The paranasal sinuses and mastoid air cells are clear. The calvarium and skull base are int act. The ventricles and sulci are within normal limits. There is no mass, hematoma, midline shift, or acute infarct. Impression: No acute intracranial abnormality. ACT 112: Negative or not required by law. Electronically signed by: Jordan Donato M.D. 06/20/2020 4:30 PM
--- NOTE | 2020-06-20 16:38 | CT Scan Report ---
HEAD & NECK CTA HISTORY: dizziness, imbalance TECHNIQUE: Multiaxial CT images of the head were performed following the intravenous administration o f contrast to evaluate the major cerebral vessels. Multiaxial CT images of the neck were also perform ed following the intravenous administration of contrast to evaluate the major cervical vessels. Maxim um intensity projection images were also obtained. A dose lowering technique was utilized adhering to the principles of ALARA. COMPARISON: None. FINDINGS: There is no mass, hematoma, midline shift, or acute infarct. Visualized intracranial internal carotid arteries, distal vertebral arteries, and basilar artery are widely patent. There is a 3 mm right sup raclinoid ICA aneurysm best seen on image 118 of series 5. 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 The major dural venous sinuses appear p atent. The aortic arch and proximal great vessels are widely patent. There is no significant stenosis, occ lusion, or dissection identified within the bilateral common carotid, internal carotid, or vertebral arteries. Severe emphysema. Poststernotomy changes. IMPRESSION: 1. A 3 mm right supraclinoid ICA aneurysm. 2. No significant stenosis or occlusion within the [place]. 3. No significant stenosis, occlusion, or dissection identified within the carotid or vertebral arter ies. ACT 112: Negative or not required by law. Electronically signed by: Jordan Donato M.D. 06/20/2020 4:36 PM
--- NOTE | 2020-06-20 16:38 | CT Scan Report ---
HEAD & NECK CTA HISTORY: dizziness, imbalance TECHNIQUE: Multiaxial CT images of the head were performed following the intravenous administration o f contrast to evaluate the major cerebral vessels. Multiaxial CT images of the neck were also perform ed following the intravenous administration of contrast to evaluate the major cervical vessels. Maxim um intensity projection images were also obtained. A dose lowering technique was utilized adhering to the principles of ALARA. COMPARISON: None. FINDINGS: There is no mass, hematoma, midline shift, or acute infarct. Visualized intracranial internal carotid arteries, distal vertebral arteries, and basilar artery are widely patent. There is a 3 mm right sup raclinoid ICA aneurysm best seen on image 118 of series 5. There is no significant stenosis, occlusio n, or aneurysm seen within the bilateral ACAs, MCAs, or dado operator. The major dural venous sinuses appear p atent. The aortic arch and proximal great vessels are widely patent. There is no significant stenosis, occ lusion, or dissection identified within the bilateral common carotid, internal carotid, or vertebral arteries. Severe emphysema. Poststernotomy changes. IMPRESSION: 1. A 3 mm right supraclinoid ICA aneurysm. 2. No significant stenosis or occlusion within the [place]. 3. No significant stenosis, occlusion, or dissection identified within the carotid or vertebral arter ies. ACT 112: Negative or not required by law. Electronically signed by: Jordan Donato M.D. 06/20/2020 4:36 PM
[2020-06-20] MEDS ORDERED: ENALAPRIL MALEATE 10 MG TAB PO STA (17:03)
[2020-06-20 17:50] LABS: iSTAT Creatinine 0.7 mg/dl (0.6-1.3); iSTAT Hemoglobin 12.6 g/dl (12.0-16.0); iSTAT Ionized Calcium 1.17 mmol/l (1.12-1.32); iSTAT Potassium 3.7 mmol/L (3.3-5.0)
--- NOTE | 2020-06-20 18:51 | History & Physical Report ---
Date of Service June 20, 2020 Assessment & Plan (1) Near syncope: Impression: 75-year-old female with history of CAD status post CABG and stent placement in 1997. Had an episode of near syncope this morning. Found to be bradycardic and with history of first-degree heart block. QTC is 506 ms. Patient bradycardic in the 40s with symptomatic findings. Patient hypertensive with a systolic blood pressure above 200. Cardiology consulted. Appreciate Dr. Allen's input N.p.o. after midnight for possible pacemaker placement tomorrow Admit to telemetry floor (2) Bradycardia: Patient with history of first-degree heart block Now with prolonged QT/QTc Transcutaneous pacing as needed N.p.o. after midnight for possible pacemaker placement tomorrow Admit to telemetry floor (3) CAD (coronary artery disease), [place] coronary artery: History of stent in 1997 followed by CABG No further stent placement or surgery per patient Beta-radha held for bradycardia Patient is not on any antiplatelet or anticoagulation medications. Continue aspirin 81 mg daily (4) HTN (hypertension): Hypertensive urgency on admission Continue enalapril Admit to telemetry floor Treat as needed (5) Hyperlipidemia: Continue atorvastatin 20 mg p.o. daily (6) Gout: No acute symptoms or findings Continue allopurinol 100 mg p.o. daily (7) Hypothyroidism: Continue levothyroxine 88mcg/day (8) GERD (gastroesophageal reflux disease): No current complaints of epigastric pain or reflux Continue omeprazole while inpatient (9) DVT prophylaxis: SCDs TANIA webb Please refer to Dr. Faith's addendum for further recommendations and corrections. History of Present Illness Primary Care Provider: Katarzyna Subramanian MD Attending: Dr. Faith This is a 75-year-old female that had a near syncopal episode earlier today.She has a past medical history including hyperlipidemia, hypertension, CAD status post CABG and stent placement in 1997, gout, hypothyroidism. The patient states that earlier today she bent over and she felt dizzy and lightheaded and thought she was going to pass out. She presented to the emergency department and is being evaluated for evaluation for admission for presyncope. While in the Emergency department,The patient was found to be bradycardic in the 40s with associated weakness and dizziness.She is currently with transcutaneous pacer pads but they have not been used for pacing at this point.Cardiology has been consulted and it is anticipated that she will be evaluated and most likely receive a pacemaker tomorrow. The patient states that she had Covid in February. She just had her second Covid vaccination with [employer] on Wednesday of this week.She has no headache and no cough.She has no fever.She denies any chest pain or tightness.She has no other acute complaints. Allergies Allergy/AdvReac Type Severity Reaction Status Date / Time acetaminophen AdvReac Intermediate VOMITING Verified 06/20/20 14:26 hydrocodone AdvReac Intermediate VOMITING Verified 06/20/20 14:26 Home Medications Medication Instructions Recorded Confirmed Type cholecalciferol (vitamin D3) 25 1,000 units PO DAILY 11/16/18 06/20/20 History mcg (1,000 unit) capsule atorvastatin 20 mg tablet 20 mg PO QPM #90 tab 09/14/19 06/20/20 Rx enalapril maleate 20 mg tablet 20 mg PO BID #180 tab 09/14/19 06/20/20 Rx omeprazole 20 mg capsule,delayed 20 mg PO DAILY #90 cap 11/02/19 06/20/20 Rx release hydrochlorothiazide 25 mg tablet 25 mg PO DAILY tab 11/23/19 06/20/20 History metoprolol succinate 100 mg 100 mg PO BID #180 tab 03/25/20 06/20/20 Rx tablet,extended release 24 hr allopurinol 100 mg tablet 100 mg PO DAILY #90 ea 04/02/20 06/20/20 Rx levothyroxine 88 mcg tablet 88 mcg PO DAILY #90 ea 04/02/20 06/20/20 Rx aspirin [Adult Aspirin Regimen] 81 mg PO QAM 06/20/20 06/20/20 History Past Med/Surg History Medical History Ambulatory dysfunction Aortic stenosis Arteriosclerotic cardiovascular disease Carotid atherosclerosis Cerebral artery occlusion Eczema Gout HTN (hypertension) Hypercholesterolemia Hyperglycemia Hyperlipidemia Hypothyroidism Intermittent claudication Osteoporosis Radiculopathy Surgical History Hx of heart surgery Hx of knee surgery Family History Mother Alcohol abuse H/O oral cancer Brother Parkinson disease, symptomatic Colon cancer Denies family history of Ovarian cancer Prostate cancer Myocardial infarction Breast cancer Colorectal cancer Social History Smoking Status: Former smoker Second Hand Exposure: No; Do You Dip or Chew Tobacco: No; Tobacco Cessation Education Requested by Patient: No Hx Alcohol Use: No Hx Substance Use: No Preferred Language: Congolese Communication Ability: Effective Beliefs That Will Affect Care: None marital status: Current Living Situation: Spouse current occupational status: retired Other Information That Helps Us Care for You: No Feels Safe at Home: Yes Safety Concerns: Feels Safe At This Time caffeine: No Dental Care, Regularly: Yes Physical Activity Frequency: Daily Seatbelt Use: always Sunscreen Use: Yes Assistive Devices: Denture - Upper and Glasses Review of Systems Review of Systems: All systems reviewed & are unremarkable except as noted in HPI & below Physical Exam Physical Exam: GENERAL : No acute distress EYES: No icterus, gaze conjugate NOSE: No evidence of epistaxis MOUTH: No lesions or candidiasis NECK: Supple LUNGS: CTA B/L, no wheezes, rales or rhonchi HEART: Regular, Bradycardic with a rate in the 40s. No appreciation of ectopy with auscultation. ABDOMEN: Soft, NT, ND, BS Present EXTREMITIES: No LE edema, pedal pulses intact NEURO: A&OX3 Results & Data Results & Data ([facility]) Vital Signs (Past 12 Hours) Vital Signs Temp Pulse Pulse Resp BP BP Pulse Ox 06/20/20 18:21 44 L 17 224/46 H 06/20/20 18:15 46 L 17 224/46 H 95 06/20/20 18:07 44 L 19 213/43 H 06/20/20 18:01 43 L 14 213/72 H 06/20/20 17:31 44 L 19 235/72 H 95 06/20/20 17:01 45 L 13 227/79 H 95 06/20/20 16:40 44 L 19 213/59 H 95 06/20/20 16:31 56 L 21 96 06/20/20 15:30 57 L 16 94 06/20/20 15:00 22 93 06/20/20 14:32 74 18 96 06/20/20 14:31 65 17 214/89 H 96 06/20/20 14:30 67 21 95 06/20/20 14:07 70 16 97 06/20/20 14:06 74 19 236/84 H 98 06/20/20 14:02 76 20 227/91 H 96 06/20/20 14:00 68 18 97 06/20/20 13:32 76 20 06/20/20 13:31 79 21 205/96 H 95 06/20/20 13:30 80 17 96 06/20/20 13:25 71 14 95 06/20/20 13:05 79 20 98 06/20/20 13:01 68 80 21 225/77 H 181/128 H 95 06/20/20 11:46 36.7 C 79 79 16 220/72 H 220/72 H 95 Laboratory Results 06/20/20 12:09 06/20/20 12:09 06/20/20 12:09 Troponin I < 0.015 Diagnostic Findings XR chest 1V portable HISTORY: Atypical Chest Pain COMPARISON: Chest 06/09/2014. FINDINGS: No pneumothorax. No pleural effusions. The cardiac silhouette remains mildly enlarged. There are poststernotomy changes. No evidence for pulmonary edema. No new focal lung consolidations to suggest pneumonia. Slightly rotated study. Emphysema. IMPRESSION: Stable mild cardiomegaly and emphysema. Otherwise, no acute process within the chest. ACT 112: Negative or not required by law. Electronically signed by: Jordan Donato M.D. 06/20/2020 1:[address] DOSE: HISTORY: dizziness, imbalance TECHNIQUE: Multiaxial CT images of the head were performed without the use of intravenous contrast. Automated exposure control was utilized for this study. A dose lowering technique was utilized adhering to the principles of ALARA. Comparison: None. Findings: The paranasal sinuses and mastoid air cells are clear. The calvarium and skull base are intact. The ventricles and sulci are within normal limits. There is no mass, hematoma, midline shift, or acute infarct. Impression: No acute intracranial abnormality. ACT 112: Negative or not required by law. Electronically signed by: Jordan Donato M.D. 06/20/2020 4:30 PM HEAD & NECK CTA HISTORY: dizziness, imbalance TECHNIQUE: Multiaxial CT images of the head were performed following the intravenous administration of contrast to evaluate the major cerebral vessels. Multiaxial CT images of the neck were also performed following the intravenous administration of contrast to evaluate the major cervical vessels. Maximum intensity projection images were also obtained. A dose lowering technique was utilized adhering to the principles of ALARA. COMPARISON: None. FINDINGS: There is no mass, hematoma, midline shift, or acute infarct. Visualized intracranial internal carotid arteries, distal vertebral arteries, and basilar artery are widely patent. There is a 3 mm right supraclinoid ICA aneurysm best seen on image 118 of series 5. 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 The major dural venous sinuses appear patent. The aortic arch and proximal great vessels are widely patent. There is no significant stenosis, occlusion, or dissection identified within the bilateral common carotid, internal carotid, or vertebral arteries. Severe emphysema. Poststernotomy changes. IMPRESSION: 1. A 3 mm right supraclinoid ICA aneurysm. 2. No significant stenosis or occlusion within the [place]. 3. No significant stenosis, occlusion, or dissection identified within the carotid or vertebral arteries. ACT 112: Negative or not required by law. Electronically signed by: Jordan Donato M.D. 06/20/2020 4:36 PM ECG Additional Comments: EKG Vent. rate 51 BPM AK interval 332 ms QRS duration 164 ms QT/QTc 550/506 ms P-R-T axes 81 -60 -14 Sinus bradycardia with 1st degree A-V block with Premature supraventricular complexes Right bundle branch block Left anterior fascicular block Bifascicular block Left ventricular hypertrophy with repolarization abnormality Cannot rule out Septal infarct (cited on or before 20-JUN-2020) Abnormal ECG When compared with ECG of 20-JUN-2020 16:04, (unconfirmed) Premature supraventricular complexes are now Present Sinus rhythm is no longer with 2nd degree A-V block ([place] I) Code Status & VTE Plan Code Status Full resuscitation: Level I VTE Prophylaxis Plan VTE Prophylaxis will be ordered: Yes Supervising Physician Co-Signing Physician Notes Patient seen and examined with Tino CHRISTIANSON. I agree with their exam findings, review of systems, assessment and plan. I personally reviewed the lab work and imaging as well. after patient was seen by admitting service she had a 9 second pause on the monitor, evidence of complete heart block heart alert called and Dr. Cooley placed a temporary pacemaker last night at 9pm - Complete heart block: treated with temporary venous pacemaker with plans for permanent pacemaker on 06/21 no clear evidence of cardiac ischemia, will cycle troponin - HTN: continue Enalapril, hold metoprolol due to heart block PG Care Time/CCT Total # of Minutes Spent Total Time Spent with Patient: Total time spent is greater than 50% in coordination of care (as documented) at patient's floor/unit and/or counseling patient:35 minutes Coding Level of Care Code 58045 Initial Inpt Care Lvl 3 Diagnoses Near syncope R55 Bradycardia R00.1 CAD (coronary artery disease), [place] coronary artery I25.10 HTN (hypertension) I10 Hyperlipidemia E78.5 Gout M10.9 Hypothyroidism E03.9 GERD (gastroesophageal reflux disease) K21.9 DVT prophylaxis Z29.9 Time Spent (min) 35
[2020-06-20] MEDS ORDERED: ONDANSETRON INJ 2 MG/ML 2 ML VIAL IV PRN (19:50)
[2020-06-20] MEDS ORDERED: ATROPINE SULFATE 0.1 MG/ML 5ML SYR IV ONE (19:59)
[2020-06-20] MEDS ORDERED: HEPARIN (PORCINE) 1000 UNIT/ML 10 ML (CATH LAB USE ONLY) ONE (21:05)
[2020-06-20] MEDS ORDERED: fentaNYL citrate 100 MCG/2 ML VIAL ONE (21:05)
[2020-06-20] MEDS ORDERED: niCARdipine HCL INJ 2.5 MG/ML 10 ML AMP ONE (21:05)
[2020-06-20] MEDS ORDERED: MIDAZOLAM HCL 1 MG/ML 2ML VIAL ONE (21:05)
[2020-06-20] MEDS ORDERED: NITROGLYCERIN/D5W 100MCG/ML 20ML SYR ONE (21:06)
[2020-06-20] MEDS ORDERED: ATROPINE SULFATE 0.1 MG/ML 10ML SYR IV ONE (21:08)
[2020-06-20 21:16] LABS: Partial Thromboplastin Ratio 0.9; Partial Thromboplastin Time 23.9 Seconds (21.0-31.0)
[2020-06-20 21:23] LABS: Blood Urea Nitrogen 18 mg/dl (7-18); Carbon Dioxide 27 mmol/L (21-32); Chloride 106 mmol/L (98-107); Creatinine Clr Calc Pharmacy 57.1 ml/min; Est GFR (African American) 78.8; Glucose 112 mg/dl (70-99); Magnesium 2.2 mg/dl (1.8-2.4); Potassium 3.8 mmol/L (3.5-5.1); Sodium 139 mmol/L (136-145)
--- NOTE | 2020-06-20 21:24 | Pre Anesthesia Assessment ---
Date of Service June 20, 2020 Pre Sedation Assessment Vital Signs Temp Pulse Pulse Resp BP BP Pulse Ox 06/20/20 20:49 47 L 219/80 H 06/20/20 20:22 46 L 19 202/64 H 94 06/20/20 20:11 98.6 F 48 L 16 203/70 H 94 06/20/20 19:50 98.2 F 42 L 20 220/110 H 94 06/20/20 19:01 44 L 21 212/107 H 95 06/20/20 18:21 44 L 17 224/46 H 06/20/20 18:15 46 L 17 224/46 H 95 06/20/20 18:07 44 L 19 213/43 H 06/20/20 18:01 43 L 14 213/72 H 06/20/20 17:31 44 L 19 235/72 H 95 06/20/20 17:01 45 L 13 227/79 H 95 06/20/20 16:40 44 L 19 213/59 H 95 06/20/20 16:31 56 L 21 96 06/20/20 15:30 57 L 16 94 06/20/20 15:00 22 93 06/20/20 14:32 74 18 96 06/20/20 14:31 65 17 214/89 H 96 06/20/20 14:30 67 21 95 06/20/20 14:07 70 16 97 06/20/20 14:06 74 19 236/84 H 98 06/20/20 14:02 76 20 227/91 H 96 06/20/20 14:00 68 18 97 06/20/20 13:32 76 20 06/20/20 13:31 79 21 205/96 H 95 06/20/20 13:30 80 17 96 06/20/20 13:25 71 14 95 06/20/20 13:05 79 20 98 06/20/20 13:01 68 80 21 225/77 H 181/128 H 95 06/20/20 11:46 98.1 F 79 79 16 220/72 H 220/72 H 95 Cardiovascular RRR, no murmur, no edema Respiratory normal respiratory effort, lungs clear to auscultation Pre-Sedation Airway Assessment Smoking Status: Former smoker Hx Sleep Apnea: No Hx Difficult Intubation: No Short, Thick Neck: No Thyromental Distance: > or= 3.5 Finger Breadths Oral Cavity: + WNL Mallampati Class: III ASA: ASA3 Procedure Planning Contraindications for Sedation: none Current Medications Reviewed: Yes Notes The planned sedation has been discussed with the patient. Informed Consent was obtained. I have identified the patient, determined the appropriateness of sedation and have assessed the patient immediately prior to the procedure. All medicine(s) and interventions are by my order.
[2020-06-20 21:28] LABS: Troponin I < 0.015 ng/ml (0-0.045)
--- NOTE | 2020-06-20 21:28 | Cardiac Catheterization ---
[facility] Data: Physical Director Cardiac Status Clinical evaluation leading to the procedure CAD Presenation: Sx unlikely to be ischemic Anginal Classification: No Symptoms Heart Failure: No Cardiogenic Shock within 24 Hours: No Cardiac Arrest within 24 Hours: No Imaging Studies Past 6 Months: No Stress Studies Past 6 Months: No Diagnostic Physicians Name: Curly Cooley MD Closure Device Percutaneous Entry Location: RT internal jugular Recommendations: Management Recommendatons (Permanent pacemaker) Intraprocedure Events Significant Disection: No Perforation: No Cardiac Cath Procedure Full Procedure Date June 20, 2020 Pre-Procedure Diagnosis Pre-Procedure Diagnosis: Cardiothoracic Symptom (complete heart block) AUC Score AUC Score: 7 Post-Procedure Diagnosis Post-Procedure Diagnosis: Cardiothoracic Finding (Complete heart block) Procedure(s) Performed Procedure(s) Performed: Temporary Pacemaker and Ultrasound Guided Vascular Access Senior Program Manager Curly Cooley MD Chemical Unit Operator(s) Juan A Estimated Blood Loss Estimated Blood Loss: 5 Medication(s) Medication(s): Lidocaine 1% Summary of Findings Indication: Symptomatic complete heart block Procedure: - Patient prepped and draped in sterile fashion. - RT IJ identified under ultrasound guidance - RT IJ accessed with micropuncture needle - 5FR sheath placed to RT IJ - 5Fr temporary pacing wire navigated to RV under fluoroscopic guidance - Appropriate pacing demonstrated to < 1 mA output. - Final pacing settings: VVI 60 bpm at 5 mA. Summary: 1. Successful transvenous temporary pacemaker placement Recommendations: - Evaluation by EP service for permanent device in AM. Keep NPO past midnight. Hemodynamics Rest Ao:: -- Final Ao: -- LV: -- Recommendations Recommendations: Management Recommendatons (Permanent pacemaker) Specimens Specimens: None Radiation Exposure (mGy) 63 Contrast (mls) -- Fluids (cc crystalloids) Fluids (cc crystalloids): 50 Drains Drains: -- Anesthesia local Disposition PCU I attest to the content of the Intraoperative Record and any orders documented therein. Any exceptions are noted below. [facility] Card Cath Procedure Codes Therapeutic Services & Ancillary Proc Procedure 1: Cardiovascular Tx and Anc Procedures: 33927 Ultrasonic Guidance Vascular Access Procedure 2: Cardiovascular Tx and Anc Procedures: 43659 Temp Pacer Insert PG Care Time/CCT Total # of Minutes Spent Total Time Spent with Patient: Total time spent is greater than 50% in coordination of care (as documented) at patient's floor/unit and/or counseling patient:
--- NOTE | 2020-06-20 21:57 | Post Anesthesia Assessment ---
Date of Service June 20, 2020 Post Sedation Assessment Vital Signs Temp Pulse Pulse Resp BP BP Pulse Ox 06/20/20 20:49 47 L 219/80 H 06/20/20 20:22 46 L 19 202/64 H 94 06/20/20 20:11 98.6 F 48 L 16 203/70 H 94 06/20/20 19:50 98.2 F 42 L 20 220/110 H 94 06/20/20 19:01 44 L 21 212/107 H 95 06/20/20 18:21 44 L 17 224/46 H 06/20/20 18:15 46 L 17 224/46 H 95 06/20/20 18:07 44 L 19 213/43 H 06/20/20 18:01 43 L 14 213/72 H 06/20/20 17:31 44 L 19 235/72 H 95 06/20/20 17:01 45 L 13 227/79 H 95 06/20/20 16:40 44 L 19 213/59 H 95 06/20/20 16:31 56 L 21 96 06/20/20 15:30 57 L 16 94 06/20/20 15:00 22 93 06/20/20 14:32 74 18 96 06/20/20 14:31 65 17 214/89 H 96 06/20/20 14:30 67 21 95 06/20/20 14:07 70 16 97 06/20/20 14:06 74 19 236/84 H 98 06/20/20 14:02 76 20 227/91 H 96 06/20/20 14:00 68 18 97 06/20/20 13:32 76 20 06/20/20 13:31 79 21 205/96 H 95 06/20/20 13:30 80 17 96 06/20/20 13:25 71 14 95 06/20/20 13:05 79 20 98 06/20/20 13:01 68 80 21 225/77 H 181/128 H 95 06/20/20 11:46 98.1 F 79 79 16 220/72 H 220/72 H 95 Recovery Score Activity: Moves 4 extremities Respiration: Deep Breath/Cough Circulation: +/-20% PreAnes Value Consciousness: Fully Awake Oxygen Saturation: O2 needed for >90% Discharge Sedation Level of Care: Fast Track Phase II Post Sedation Plan On clinical assessment, the patient appears to have tolerated the sedation without complications. Patient is recovering as anticipated. Patient will continue to be monitored by nursing and may be discharged when sedation discharge criteria are met per below protocol. Upon Completions of procedure up to 15 minutes continue every 5 minute vital signs and the P.A.R. score; then discharge to a Phase I or Fast Track to Phase II per the following guidelines: * Discharge Patient to appropriate Phase II area if PAR is 8 or greater or return to pre- procedure baseline. The post - procedure orders will be as directed. * If PAR score is less than 8 or not return to pre-procedure baseline then patient will follow Phase I monitoring till PAR is reached for Phase II. The Phase I may be done in procedure room or may call to secure a Phase I area. * If naloxone or flumazenil are used for reversal, hold in Phase I for continued monitoring from when last reversal dose was given for a minimum of 60 minutes or longer pending the nurse and/or physician discretion of patient condition before discharge to Phase II. Please call the Sedation Physician to re-evaluate and complete post-note for discharge to Phase II area. Do NOT discharge from procedure sedation or Phase 1 until post- sedation evaluation note is complete by procedure /sedation MD Sedation Discharge Instructions to be given to the patient at discharge to home.
[2020-06-20] MEDS: ATORVASTATIN 20 MG TAB PO SCH (22:56)
[2020-06-21] MEDS ORDERED: ATROPINE SULFATE 0.1 MG/ML 10ML SYR IV PRN (00:25)
[2020-06-21] MEDS ORDERED: hydrALAZINE HCL 20 MG/ML VIAL IV ONE (00:31)
--- NOTE | 2020-06-21 00:32 | Critical Care Consultation ---
Date of Consultation June 21, 2020 Assessment & Plan (1) Admitted to intensive care unit: Reason Critically Ill: 75-year-old female with symptomatic complete heart block who is status post transvenous pacemaker placement requiring close hemodynamic monitoring with hopes for permanent pacemaker placement in the next several hours. NEURO - * CAM ICU: NEGATIVE CARDIAC/VASCULAR - * Complete heart block: * Patient symptomatic with near syncope x2. * Patient with sinus pauses lasting several seconds in the emergency department. * Status post transvenous pacemaker placement. * Rate at 60 bpm with capture at 5 mA. * Hope for placement of permanent pacemaker after evaluation by EP. * Hypertension: * She was provided her enalapril, but beta-radha was held secondary to complete heart block. * Will aim to treat severe hypertension as needed. * Monitor on telemetry. RESPIRATORY - * No history of pulmonary disease. * Saturating well on room air. GI/NUTRITION - * N.p.o. after midnight pending intervention tomorrow RENAL/LYTES - * No significant electrolyte derangements. * IVF: Normosol@100 mL/h. - * No concerns at this time. ENDO - * Hyperglycemia: * BSGs per unit protocol. ISS --> gtt per unit policy. * Hypothyroidism: * Continue home doses of levothyroxine. HEME - * Stable H&H. ID - * No concerns for infectious contribution at this time. LINES/IV ACCESS - * PIVs x2 * RIGHT IJ transvenous pacemaker DVT PROPHYLAXIS - * Hold on chemoprophylaxis with intent for likely permanent pacemaker placement to be performed tomorrow. * SCDs I have personally spent 35 minutes of critical care time in the direct management of this patient. This is a life/limb threatening event. This includes time spent evaluating patient, direct bedside care, chart review, placing orders, interpretation of diagnostic studies, discussion with consultants, patient, and family members, as well as other required patient management activities. This time is exclusive of all separately billable procedures, and teaching time and separate from and in addition to any other critical care service time. Thank you for allowing us to participate in the care of this patient. Please refer to my attending physician's documentation for any further recommendations. (2) Heart block AV complete: (3) Hypertension: (4) Dizziness: (5) CAD (coronary artery disease), [place] coronary artery: (6) Bradycardia: (7) Near syncope: (8) Hypothyroidism: (9) Hyperglycemia: (10) Aortic stenosis: (11) Hyperlipidemia: (12) HTN (hypertension): Supervising Physician Co-Signing Physician Notes I have personally evaluated and examined this patient. I agree with assessment and plan of Socrates Medina PA-C. Prior to my evaluation patient was already transferred to cardiac [facility] for definitive pacer placement and will be transferred to telemetry status following that. History of Present Illness Attending Physician: Mikhail Faith DO History of Present Illness Patient is a 75-year-old female with a significant past medical history of hypertension, hyperlipidemia, aortic stenosis, coronary artery disease status po st PTCI with subsequent CABG in 1997, carotid atherosclerosis, gout, hypothyroidism, hyperglycemia, and GERD. Patient reports that earlier today, while at [facility], she reports that she had bent over picking up her product and when she stood she became near syncopal. A bystander was able to catch her before she fell. She presented to the emergency department where she was noted to be bradycardic with heart rates in the 40s. The patient did have a several second pause during which she was symptomatic and felt as though she was going to pass out. Patient was admitted to the telemetry floor and shortly after admission, the patient had a second near syncopal event where she was noted to have sinus pauses well. Heart alert was initiated and the patient was taken to the catheterization suite where she underwent emergent transvenous pacemaker placement. This was performed uneventfully. Capture was achieved at 5 mA at a rate of 60 bpm. Patient has been noted to be hypertensive since arrival. Upon evaluation in the ICU, the patient is awake, alert, and oriented. She denies any complaints of chest pain, shortness of breath, dizziness, lightheadedness, unilateral weakness/numbness, nausea, vomiting, or abdominal discomfort. She reports feeling generally tired, but otherwise offers no complaints. Patient did successfully recover from COVID-19 infection at the end of last year. She has subsequently been vaccinated and received both doses of Moderna vaccine. Allergies Allergy/AdvReac Type Severity Reaction Status Date / Time acetaminophen AdvReac Intermediate VOMITING Verified 06/20/20 14:26 hydrocodone AdvReac Intermediate VOMITING Verified 06/20/20 14:26 Home Medications Medication Instructions Recorded Confirmed Type cholecalciferol (vitamin D3) 25 1,000 units PO DAILY 11/16/18 06/20/20 History mcg (1,000 unit) capsule atorvastatin 20 mg tablet 20 mg PO QPM #90 tab 09/14/19 06/20/20 Rx enalapril maleate 20 mg tablet 20 mg PO BID #180 tab 09/14/19 06/20/20 Rx omeprazole 20 mg capsule,delayed 20 mg PO DAILY #90 cap 11/02/19 06/20/20 Rx release hydrochlorothiazide 25 mg tablet 25 mg PO DAILY tab 11/23/19 06/20/20 History metoprolol succinate 100 mg 100 mg PO BID #180 tab 03/25/20 06/20/20 Rx tablet,extended release 24 hr allopurinol 100 mg tablet 100 mg PO DAILY #90 ea 04/02/20 06/20/20 Rx levothyroxine 88 mcg tablet 88 mcg PO DAILY #90 ea 04/02/20 06/20/20 Rx aspirin [Adult Aspirin Regimen] 81 mg PO QAM 06/20/20 06/20/20 History Patient History Medical History Ambulatory dysfunction Aortic stenosis Arteriosclerotic cardiovascular disease Carotid atherosclerosis Cerebral artery occlusion Eczema Gout HTN (hypertension) Hypercholesterolemia Hyperglycemia Hyperlipidemia Hypothyroidism Intermittent claudication Osteoporosis Radiculopathy Surgical History Hx of heart surgery Hx of knee surgery Family History Mother Alcohol abuse H/O oral cancer Brother Parkinson disease, symptomatic Colon cancer Denies family history of Ovarian cancer Prostate cancer Myocardial infarction Breast cancer Colorectal cancer Social History Smoking Status: Former smoker Second Hand Exposure: No; Do You Dip or Chew Tobacco: No; Tobacco Cessation Education Requested by Patient: No Hx Alcohol Use: No Hx Substance Use: No Preferred Language: Malay Communication Ability: Effective Beliefs That Will Affect Care: None marital status: Current Living Situation: Spouse current occupational status: retired Other Information That Helps Us Care for You: No Feels Safe at Home: Yes Safety Concerns: Feels Safe At This Time caffeine: No Dental Care, Regularly: Yes Physical Activity Frequency: Daily Seatbelt Use: always Sunscreen Use: Yes Assistive Devices: Denture - Upper and Glasses Review of Systems Review of Systems: A complete 10 point review of systems was reviewed with the patient with pertinent positives and negatives as per history of present illness. All else were negative. Physical Exam Physical Exam: VITAL SIGNS - Vital signs and nursing notes were reviewed. GENERAL - 75-year-old female stated age who is in her no acute distress. Communicates well with provider and answers questions appropriately. HEAD - NC/AT. EYES - PERRL with EOMI bilaterally. Sclera anicteric. Palpebral conjunctiva pink and moist with no injection noted. EARS - No deformities of external structures noted on gross examination bilaterally. NOSE - Midline and without cyanosis. No epistaxis or purulent drainage noted. MOUTH/OROPHARYNX - Without perioral cyanosis. Buccal mucosa pink and moist and without leukoplakia. Tongue midline with equal elevation of palate bilaterally. NECK - Neck with FROM. RIGHT IJ CVL/Transvenous pacer in place. Dressing clean, dry, and intact. LUNGS - Chest wall symmetric without accessory muscle use, intercostals retractions, or central cyanosis. Normal vesicular breath sounds CTA B/L. No wheezes, rales, or rhonchi appreciated. CARDIAC - RRR with S1/S2. No murmur, rubs, or gallops appreciated. No reproducible tenderness to palpation appreciated over the anterior chest wall. ABDOMEN - Abdominal contour flat without pulsations or visible masses. BS normoactive all four quadrants. No tenderness, palpable masses, hepatosplenomegaly, or ascites noted. EXTREMITIES - No clubbing or peripheral cyanosis. No pretibial edema present. +3/5 radial and dorsalis pedis pulses palpated throughout. +5/5 strength noted in UE/LE bilaterally. NEUROLOGIC - Cranial nerves II through XII grossly intact. Sensory intact to light touch throughout. PSYCH - A&Ox3 and cooperates fully with examiner. Pt is very pleasant and interacts well with examiner. Results & Data Results & Data ([facility]) Vital Signs (Past 12 Hours) Vital Signs Temp Pulse Pulse Resp BP BP Pulse Ox 06/21/20 00:00 60 17 91 06/20/20 23:30 60 18 93 06/20/20 23:16 60 17 94 06/20/20 23:14 60 19 218/62 H 92 06/20/20 23:13 62 22 211/59 H 93 06/20/20 23:03 62 17 194/67 H 94 06/20/20 23:01 36.0 C L 60 19 95 06/20/20 22:59 60 17 216/65 H 94 06/20/20 22:45 60 21 94 06/20/20 22:38 66 21 217/63 H 93 06/20/20 22:30 67 15 93 06/20/20 22:16 60 19 94 06/20/20 22:15 60 26 H 219/68 H 94 06/20/20 22:13 60 20 95 06/20/20 20:49 47 L 219/80 H 06/20/20 20:22 46 L 19 202/64 H 94 06/20/20 20:11 37 C 48 L 16 203/70 H 94 06/20/20 19:50 36.8 C 42 L 20 220/110 H 94 06/20/20 19:01 44 L 21 212/107 H 95 06/20/20 18:21 44 L 17 224/46 H 06/20/20 18:15 46 L 17 224/46 H 95 06/20/20 18:07 44 L 19 213/43 H 06/20/20 18:01 43 L 14 213/72 H 06/20/20 17:31 44 L 19 235/72 H 95 06/20/20 17:01 45 L 13 227/79 H 95 06/20/20 16:40 44 L 19 213/59 H 95 06/20/20 16:31 56 L 21 96 06/20/20 15:30 57 L 16 94 06/20/20 15:00 22 93 06/20/20 14:32 74 18 96 06/20/20 14:31 65 17 214/89 H 96 06/20/20 14:30 67 21 95 06/20/20 14:07 70 16 97 06/20/20 14:06 74 19 236/84 H 98 06/20/20 14:02 76 20 227/91 H 96 06/20/20 14:00 68 18 97 06/20/20 13:32 76 20 06/20/20 13:31 79 21 205/96 H 95 06/20/20 13:30 80 17 96 06/20/20 13:25 71 14 95 06/20/20 13:05 79 20 98 06/20/20 13:01 68 80 21 225/77 H 181/128 H 95 Coding Level of Care Code Critical Care 1st 30-74 mins Diagnoses Admitted to intensive care unit Z78.9 Heart block AV complete I44.2 Hypertension I10 Dizziness R42 CAD (coronary artery disease), [place] coronary artery I25.10 Bradycardia R00.1 Near syncope R55 Hypothyroidism E03.9 Hyperglycemia R73.9 Aortic stenosis I35.0 Hyperlipidemia E78.5 HTN (hypertension) I10 Time Spent (min) 35
[2020-06-21 04:28] LABS: Hematocrit (blood only) 36.1 % (37-47); Mean Corpuscular Hemoglobin 28.7 pg (25-34); Mean Corpuscular Hgb Conc 33.2 g/dL (32-36); Mean Corpuscular Volume 86.4 fL (80-100); Mean Platelet Volume 10.4 fL (7.4-10.4); Platelet Count 202 K/uL (130-400); Red Blood Count 4.18 M/uL (4.2-5.4); White Blood Count 10.58 K/uL (4.8-10.8)
[2020-06-21 04:45] LABS: BUN Creatinine Ratio 21.2 (10-20); Calcium 8.6 mg/dl (8.5-10.1); Creatinine Clr Calc Pharmacy 55.2 ml/min; Est GFR (African American) 75.5; Est GFR (Non-African American) 65.2; Potassium 3.6 mmol/L (3.5-5.1)
[2020-06-21 05:00] LABS: Troponin I 0.192 ng/ml (0-0.045)
[2020-06-21] MEDS: NORMOSOL-R 1,000 ML IV SCH ×2 (05:01→13:32)
[2020-06-21] MEDS: LEVOTHYROXINE SODIUM 88 MCG TABLET PO SCH (06:22)
[2020-06-21] MEDS ORDERED: POTASSIUM CHLORIDE PWD 20 MEQ PACK PO STA (07:47)
[2020-06-21] MEDS: ASPIRIN 81 MG ECTAB PO SCH (08:25)
[2020-06-21] MEDS: ENALAPRIL MALEATE 10 MG TAB PO SCH ×2 (08:26→19:52)
[2020-06-21] MEDS: PANTOprazole 40 MG TAB PO SCH (08:26)
[2020-06-21] MEDS: allopurinoL 100 MG TAB PO SCH (08:26)
[2020-06-21] MEDS ORDERED: BACITRACIN OINT 0.9 GM PKT ONE (08:38)
[2020-06-21] MEDS ORDERED: LIDOCAINE HCL 1% 20 ML VIAL ONE (08:38)
[2020-06-21] MEDS ORDERED: BACITRACIN INJ 50,000 UNIT VIAL ONE (08:40)
--- NOTE | 2020-06-21 08:50 | History & Physical Bridge Note ---
Date of Service June 21, 2020 History & Physical Bridge Note I have examined the patient, reviewed the History & Physical and in the interval since the performance of the History & Physical I have noted the following changes of clinical significance: no changes noted. I reviewed the indications, procedure, risks and alternatives with the patient, answered all questions. Consent obtained. Patient understands and agrees to the procedure. I also reviewed the risks and use of sedation, patient understands and consent obtained.
--- NOTE | 2020-06-21 08:51 | Pre Anesthesia Assessment ---
Date of Service June 21, 2020 Pre Sedation Assessment Vital Signs Temp Pulse Pulse Resp BP BP Pulse Ox 06/21/20 08:35 60 06/21/20 08:14 60 23 181/67 H 93 06/21/20 07:14 60 21 190/46 H 93 06/21/20 06:00 36.9 C 61 22 164/54 H 93 06/21/20 05:00 60 18 92 06/21/20 04:15 66 19 170/52 H 94 06/21/20 04:00 60 18 92 06/21/20 03:14 60 19 139/52 L 93 06/21/20 03:03 63 16 105/49 L 93 06/21/20 03:00 60 17 92 06/21/20 02:14 60 20 168/58 H 94 06/21/20 02:00 61 25 H 94 06/21/20 01:30 60 19 93 06/21/20 01:14 64 18 197/57 H 94 06/21/20 01:00 60 18 94 06/21/20 00:35 60 20 183/92 H 93 06/21/20 00:30 60 19 93 06/21/20 00:20 60 17 196/66 H 94 06/21/20 00:16 60 19 250/57 H 94 06/21/20 00:00 60 17 91 06/20/20 23:30 60 18 93 06/20/20 23:16 60 17 94 06/20/20 23:14 60 19 218/62 H 92 06/20/20 23:13 62 22 211/59 H 93 06/20/20 23:03 62 17 194/67 H 94 06/20/20 23:01 36.0 C L 60 19 95 06/20/20 22:59 60 17 216/65 H 94 06/20/20 22:45 60 21 94 06/20/20 22:38 66 21 217/63 H 93 06/20/20 22:30 67 15 93 06/20/20 22:16 60 19 94 06/20/20 22:15 60 26 H 219/68 H 94 06/20/20 22:13 60 20 95 06/20/20 20:49 47 L 219/80 H 06/20/20 20:22 46 L 19 202/64 H 94 06/20/20 20:11 37 C 48 L 16 203/70 H 94 06/20/20 19:50 36.8 C 42 L 20 220/110 H 94 06/20/20 19:01 44 L 21 212/107 H 95 06/20/20 18:21 44 L 17 224/46 H 06/20/20 18:15 46 L 17 224/46 H 95 06/20/20 18:07 44 L 19 213/43 H 06/20/20 18:01 43 L 14 213/72 H 06/20/20 17:31 44 L 19 235/72 H 95 06/20/20 17:01 45 L 13 227/79 H 95 06/20/20 16:40 44 L 19 213/59 H 95 06/20/20 16:31 56 L 21 96 06/20/20 15:30 57 L 16 94 06/20/20 15:00 22 93 06/20/20 14:32 74 18 96 06/20/20 14:31 65 17 214/89 H 96 06/20/20 14:30 67 21 95 06/20/20 14:07 70 16 97 06/20/20 14:06 74 19 236/84 H 98 06/20/20 14:02 76 20 227/91 H 96 06/20/20 14:00 68 18 97 06/20/20 13:32 76 20 06/20/20 13:31 79 21 205/96 H 95 06/20/20 13:30 80 17 96 06/20/20 13:25 71 14 95 06/20/20 13:05 79 20 98 06/20/20 13:01 68 80 21 225/77 H 181/128 H 95 06/20/20 11:46 36.7 C 79 79 16 220/72 H 220/72 H 95 Cardiovascular RRR, no murmur, no edema Respiratory normal respiratory effort, lungs clear to auscultation Pre-Sedation Airway Assessment Smoking Status: Former smoker Hx Sleep Apnea: No Hx Difficult Intubation: No Short, Thick Neck: No Thyromental Distance: > or= 3.5 Finger Breadths Oral Cavity: + WNL Mallampati Class: III ASA: ASA3 NPO Status Date of Last Intake of Fluids: 06/20/20 Date of Last Intake of Solid Food: 06/20/20 Procedure Planning Contraindications for Sedation: none Current Medications Reviewed: Yes Notes The planned sedation has been discussed with the patient. Informed Consent was obtained. I have identified the patient, determined the appropriateness of sedation and have assessed the patient immediately prior to the procedure. All medicine(s) and interventions are by my order.
[2020-06-21] MEDS ORDERED: ONDANSETRON INJ 2 MG/ML 2 ML VIAL ONE (08:55)
[2020-06-21] MEDS ORDERED: MIDAZOLAM HCL 5 MG/ML 1 ML VIAL ONE (09:01)
[2020-06-21] MEDS ORDERED: fentaNYL citrate 100 MCG/2 ML VIAL ONE (09:01)
--- NOTE | 2020-06-21 09:11 | Cardiology Consultation ---
Date of Consultation June 21, 2020 Assessment & Plan (1) Bradycardia: -with the prolonged pauses which are symptomatic. -temporary pacemaker placed last evening by Dr. Cooley. -will have a permanent pacemaker placed by Dr. Lorenzo this morning. (2) CAD (coronary artery disease), [place] coronary artery: -s/p GORDON to the LAD in February 1998. -this procedure occurred following an anteroapical [place]. -would resume metoprolol succinate after pacemaker implantation. (3) Hypertension: -as above, would resume metoprolol succinate after pacemaker implantation. (4) Hypercholesterolemia: -continue atorvastatin. History of Present Illness Attending Physician: Mikhail Faith, History of Present Illness Mrs. Jones is a 75-year-old female admitted yesterday with symptomatic bradycardia. This consultation was ordered to assist in her cardiac management. Of note, the patient is well known to me from the outpatient setting. The patient was in usual state of health until the morning of presentation when she had an episode of dizziness and lightheadedness. She felt fatigued throughout the day, therefore, presented to the emergency room for further evaluation. On arrival here, the patient was noted to be in sinus bradycardia with a significant first-degree AV block. She apparently demonstrated several prolonged pauses up to [address] Cooley placed a temporary pacemaker last evening. She is scheduled for a permanent pacemaker later this morning with Dr. Lorenzo. The patient has longstanding history of coronary artery disease. She suffered an anteroapical [place] back in February of 1998. She had a GORDON to the LAD following that event. She has done well from cardiac perspective since that time. She also carries a history of cerebrovascular disease having 50-69% stenoses in the internal carotid arteries bilaterally. Currently, patient is resting comfortably in bed without complaints. Past medical and surgical history 1. Coronary artery disease-see above 2. CABG x1-February 1998, see above 3. Hypertension 4. Hypercholesterolemia 5. Cerebrovascular disease-see above 6. Hyperglycemia 7. Hypothyroidism 8. Gout 9. Eczema 10. GERD 11. Osteoporosis Social history and lives with her No tobacco Rare alcohol Family history Noncontributory Review systems A 10 review systems was negative except for that described above. Allergies Allergy/AdvReac Type Severity Reaction Status Date / Time acetaminophen AdvReac Intermediate VOMITING Verified 06/20/20 14:26 hydrocodone AdvReac Intermediate VOMITING Verified 06/20/20 14:26 Home Medications Medication Instructions Recorded Confirmed Type cholecalciferol (vitamin D3) 25 1,000 units PO DAILY 11/16/18 06/20/20 History mcg (1,000 unit) capsule atorvastatin 20 mg tablet 20 mg PO QPM #90 tab 09/14/19 06/20/20 Rx enalapril maleate 20 mg tablet 20 mg PO BID #180 tab 09/14/19 06/20/20 Rx omeprazole 20 mg capsule,delayed 20 mg PO DAILY #90 cap 11/02/19 06/20/20 Rx release hydrochlorothiazide 25 mg tablet 25 mg PO DAILY tab 11/23/19 06/20/20 History metoprolol succinate 100 mg 100 mg PO BID #180 tab 03/25/20 06/20/20 Rx tablet,extended release 24 hr allopurinol 100 mg tablet 100 mg PO DAILY #90 ea 04/02/20 06/20/20 Rx levothyroxine 88 mcg tablet 88 mcg PO DAILY #90 ea 04/02/20 06/20/20 Rx aspirin [Adult Aspirin Regimen] 81 mg PO QAM 06/20/20 06/20/20 History Patient History Medical History Ambulatory dysfunction Aortic stenosis Arteriosclerotic cardiovascular disease Carotid atherosclerosis Cerebral artery occlusion Eczema Gout HTN (hypertension) Hypercholesterolemia Hyperglycemia Hyperlipidemia Hypothyroidism Intermittent claudication Osteoporosis Radiculopathy Surgical History Hx of heart surgery Hx of knee surgery Family History Mother Alcohol abuse H/O oral cancer Brother Parkinson disease, symptomatic Colon cancer Denies family history of Ovarian cancer Prostate cancer Myocardial infarction Breast cancer Colorectal cancer Social History Smoking Status: Former smoker Second Hand Exposure: No; Do You Dip or Chew Tobacco: No; Tobacco Cessation Education Requested by Patient: No Hx Alcohol Use: No Hx Substance Use: No Preferred Language: Greenlandic Communication Ability: Effective Beliefs That Will Affect Care: None marital status: Current Living Situation: Spouse current occupational status: retired Other Information That Helps Us Care for You: No Feels Safe at Home: Yes Safety Concerns: Feels Safe At This Time caffeine: No Dental Care, Regularly: Yes Physical Activity Frequency: Daily Seatbelt Use: always Sunscreen Use: Yes Assistive Devices: Denture - Upper and Glasses Physical Exam Physical Exam: In general is well-developed well-nourished white female no acute distress. HEENT exam is negative. Neck is supple with full carotid upstrokes. No carotid bruits. Pacemaker wire noted in the right neck. Cardiovascular exam reveals a regular rhythm with a 2/6 basal systolic ejection murmur. Lungs are clear without rales, rhonchi or wheeze. Abdomen is soft without bruits. Extremities reveal intact radial artery pulses bilaterally. There is trace pretibial edema noted. Results & Data ([facility]) Vital Signs (Past 12 Hours) Vital Signs Temp Pulse Resp BP Pulse Ox 06/21/20 08:35 60 06/21/20 08:14 60 23 181/67 H 93 06/21/20 07:14 60 21 190/46 H 93 06/21/20 06:00 36.9 C 61 22 164/54 H 93 06/21/20 05:00 60 18 92 06/21/20 04:15 66 19 170/52 H 94 06/21/20 04:00 60 18 92 06/21/20 03:14 60 19 139/52 L 93 06/21/20 03:03 63 16 105/49 L 93 06/21/20 03:00 60 17 92 06/21/20 02:14 60 20 168/58 H 94 06/21/20 02:00 61 25 H 94 06/21/20 01:30 60 19 93 06/21/20 01:14 64 18 197/57 H 94 06/21/20 01:00 60 18 94 06/21/20 00:35 60 20 183/92 H 93 06/21/20 00:30 60 19 93 06/21/20 00:20 60 17 196/66 H 94 06/21/20 00:16 60 19 250/57 H 94 06/21/20 00:00 60 17 91 06/20/20 23:30 60 18 93 06/20/20 23:16 60 17 94 06/20/20 23:14 60 19 218/62 H 92 06/20/20 23:13 62 22 211/59 H 93 06/20/20 23:03 62 17 194/67 H 94 06/20/20 23:01 36.0 C L 60 19 95 06/20/20 22:59 60 17 216/65 H 94 06/20/20 22:45 60 21 94 06/20/20 22:38 66 21 217/63 H 93 06/20/20 22:30 67 15 93 06/20/20 22:16 60 19 94 06/20/20 22:15 60 26 H 219/68 H 94 06/20/20 22:13 60 20 95 Laboratory Results CBC notes hemoglobin 12.0, crit 36.1, white count 10.5, platelet [id number]. Electrolytes note a sodium of 141, potassium 3.6, chloride 107, bicarb 27, BUN 18, creatinine 0.87, and glucose of 103. Initial troponin was less than 0.015 with a follow-up value of 0.192. Diagnostic Findings EKG notes sinus bradycardia with a prolonged first-degree AV block, a right bundle branch block, and a left anterior hemiblock. Frequent PACs are noted. quality assurance monitor body noted to numerous pauses up to 9 seconds in length. PG Care Time/CCT Total # of Minutes Spent Total Time Spent with Patient: Total time spent is greater than 50% in coordination of care (as documented) at patient's floor/unit and/or counseling patient: Coding Level of Care Code 61262 Initial Inpt Care Lvl 3 Diagnoses Bradycardia R00.1 CAD (coronary artery disease), [place] coronary artery I25.10 Hypertension I10 Hypercholesterolemia E78.00
[2020-06-21] MEDS ORDERED: ACETAMINOPHEN W/CODEINE #3 1 TAB PO PRN (10:05)
--- NOTE | 2020-06-21 10:05 | Electrophysiology Report ---
Date of Service June 21, 2020 Electrophysiology Procedure Electrophysiology Procedure Report Preoperative diagnosis: Intermittent complete heart block Postoperative diagnosis: Same Procedure: Dual-chamber pacemaker implantation Surgeon: Robert Lorenzo MD Estimated blood loss: 20 cc Complications: None Disposition: Recreation Manager recovery Procedure details: After obtaining informed consent for the procedure, the patient was brought to the laboratory and prepped and draped in the standard sterile manner. The left prepectoral region was anesthetized with 1% lidocaine local anesthetic and left axillary venipuncture was performed by percutaneous technique and a guidewire placed through the left subclavian vein into the superior vena cava. The area was further infiltrated with 1% lidocaine local anesthetic and a 5 cm incision was made parallel to the left clavicle and 2 cm below it and carried down to the anterior pectoralis fascia. A pacemaker pocket was formed by blunt dissection anterior to the pectoralis fascia and a bacitracin-soaked sponge (50,000 units in 50 cc normal saline solution) was placed in the pocket. An 8 [employer] lead introducer was placed over the guidewire into the left subclavian vein, the dilator and guidewire were removed and a bipolar a ctive fixation steroid tipped ventricular lead was advanced through the introducer into the superior vena cava. A guidewire was placed through the introducer and the introducer was stripped from the lead and guidewire. Another 8 [place] Med[employer] lead introducer was placed over the guidewire into the left subclavian vein, the dilator and guidewire were removed and a bipolar active fixation steroid tipped atrial lead was advanced through the introducer into the superior vena cava. A guidewire was placed back through the introducer and the introducer was stripped from the lead and guidewire. Using a curved stylette the ventricular lead was advanced through the right ventricular outflow tract into the pulmonary artery and then using a straight stylette was positioned in the right ventricular apex. The screw was extended fixing the lead in position. Pacing and sensing thresholds were evaluated in bipolar configuration and are recorded on the implant data sheet. Using a curved stylette the atrial lead was positioned in the region of the atrial appendage and the screw extended fixing the lead in position. Pacing and sensing thresholds were evaluated in bipolar configuration and are recorded on the implant data sheet. Once the leads were in position they were attached to the anterior pectoralis fascia using 2 sutures of 2-0 silk around each lead collar. The bacitracin- soaked sponge was removed from the pocket, hemostasis was obtained, the pacemaker was attached to the leads and placed in the pocket with the leads coiled beneath it. The temporary pacemaker was removed from the right IJ once the pacemaker was connected to the leads. The incision was closed with a running double subcutaneous closure of 3-0 Vicryl absorbable suture, followed by running subcuticular skin closure of 4-0 Vicryl absorbable suture. Bacitracin ointment was placed on the incision and a dressing applied. [facility] Electrophysiology codes Pacing Procedure 1: Pacin Insert/Replace Pacer A & V PG Moderate Sedation Codes Moderate Sedation Codes Procedure 1: Sedation/Anesthesia: 17775 Mod Sedation by the same physician;Init15 Min Child Age 5 & Up Procedure 2: Sedation/Anesthesia: 04977 Mod Sedation by the same physician; Ea [id number] Minutes
[2020-06-21] MEDS: ACETAMINOPHEN 325 MG TAB PO PRN (11:54)
[2020-06-21] MEDS: ATORVASTATIN 20 MG TAB PO SCH (19:52)
--- NOTE | 2020-06-21 23:03 | Hospitalist Progress Note ---
Date of Service June 21, 2020 Assessment & Plan (1) Heart block AV complete: in the ED patient presented with 1st degree block then 2nd degree block she then proceeded to have a 3 second pause and then 5 second pause and then 9 second pause emergent temporary venous pacer placed last night by Dr. Cooley PPM placed today by Dr. Lorenzo she feels great, no further symptoms likely good for discharge tomorrow (2) Near syncope: due to complete heart block, pauses of 5 and 9 seconds resolved with pacemaker (3) Bradycardia: initially held metoprolol now with pacemaker (4) CAD (coronary artery disease), [place] coronary artery: History of stent in 1997 followed by CABG No further stent placement or surgery per patient Beta-radha held for bradycardia Continue aspirin 81 mg daily mild bump in troponin this morning, no chest pain, could have been from procedure no further work up planned (5) HTN (hypertension): Hypertensive urgency on admission Continue enalapril resume metoprolol now that she has pacer resume HCTZ (6) Hyperlipidemia: Continue atorvastatin 20 mg p.o. daily (7) Gout: No acute symptoms or findings Continue allopurinol 100 mg p.o. daily (8) Hypothyroidism: Continue levothyroxine 88mcg/day (9) GERD (gastroesophageal reflux disease): No current complaints of epigastric pain or reflux Continue omeprazole while inpatient (10) DVT prophylaxis: [place] webb Please refer to Dr. Faith's addendum for further recommendations and corrections. Admission and Anticipated Discharge Date Admission Date: June 20, 2020 Subjective patient feels great today, had her pacemaker placed today by Dr. Lorenzo BP trending up today eating and drinking well likely for home tomorrow Review of Systems Review of Systems: All systems reviewed & are unremarkable except as noted in Subjective Constitutional: no fever, no fatigue and no weakness Respiratory: no cough and no dyspnea Cardiovascular: no chest pain and no edema Physical Exam Constitutional: WD/WN, vitals as above Neck: trachea midline, no thyromegaly Respiratory: normal respiratory effort, lungs clear to auscultation Cardiovascular: RRR, no murmur, no edema Chest (Breasts): Chest: + pacemaker (left upper chest) Gastrointestinal (Abdomen): normal bowel sounds, soft, nontender, no hepatosplenomegaly Musculoskeletal: no cyanosis or clubbing, extremities motor strength 5/5 Skin: no rashes, warm and dry Neurologic: patellar DTR's 2+ bilat, sensation intact and PERRL, EOMI, accommodation nl, no face palsy, no dysarthria Psychiatric: A+Ox3, euthymic affect Lymphatic: no cervical or axillary lymphadenopathy Results & Data Results & Data ([facility]) Vital Signs (Past 12 Hours) Vital Signs Temp Pulse Pulse Resp BP Pulse Ox 06/21/20 19:57 36.8 C 93 H 18 187/61 H 93 06/21/20 15:13 36.6 C 67 18 163/67 H 93 06/21/20 13:00 70 137/64 06/21/20 12:30 71 158/72 H 06/21/20 12:00 73 147/64 H 94 06/21/20 11:30 36.7 C 72 18 158/64 H 96 06/21/20 11:21 36.7 C 75 18 148/53 H 95 Laboratory Results Laboratory Results - last 24 hr 06/20/20 06/21/20 06/21/20 22:30 04:15 04:15 WBC 10.58 RBC 4.18 L Hgb 12.0 Hct 36.1 L MCV 86.4 MCH 28.7 MCHC 33.2 RDW Std Deviation 44.0 RDW Coeff of Chani 14.0 Plt Count 202 MPV 10.4 Sodium 141 Potassium 3.6 Chloride 107 Carbon Dioxide 27 Anion Gap 7.0 BUN 18 Creatinine 0.87 Est Cr Clr Drug Dosing 55.2 Est GFR ( Amer) 75.5 Est GFR (Non-Af Amer) 65.2 BUN/Creatinine Ratio 21.2 H Glucose 103 H Calcium 8.6 Magnesium 2.0 Troponin I 0.192 H* Nasal Screen MRSA (PCR) Negative Hepatitis C Ab Screen 06/21/20 04:15 WBC RBC Hgb Hct MCV MCH MCHC RDW Std Deviation RDW Coeff of Chani Plt Count MPV Sodium Potassium Chloride Carbon Dioxide Anion Gap BUN Creatinine Est Cr Clr Drug Dosing Est GFR ( Amer) Est GFR (Non-Af Amer) BUN/Creatinine Ratio Glucose Calcium Magnesium Troponin I Nasal Screen MRSA (PCR) Hepatitis C Ab Screen Neg Medications Administered Current Inpatient Medications Acetaminophen (Acetaminophen 325 Mg Tab) 650 mg PO Q4H PRN PRN Reason: Pain or Fever Stop: 07/20/20 19:49 Last Admin: 03/19/21 11:54 Dose: 650 mg Documented by: Acetaminophen/Codeine Phosphate (Acetaminophen W/Codeine #3 1 Tab) 1 - 2 tab PO Q4H PRN PRN Reason: Moderate-Severe Pain Stop: 07/21/20 10:04 Allopurinol (Allopurinol 100 Mg Tab) 100 mg PO DAILY [facility] Stop: 07/21/20 08:59 Last Admin: 06/21/20 08:26 Dose: 100 mg Documented by: Aspirin (Aspirin 81 Mg Ectab) 81 mg PO QAM [facility] Stop: 07/21/20 08:59 Last Admin: 06/21/20 08:25 Dose: 81 mg Documented by: Atorvastatin Calcium (Atorvastatin 20 Mg Tab) 20 mg PO QPM [facility] Stop: 07/20/20 20:59 Last Admin: 06/21/20 19:52 Dose: 20 mg Documented by: Atropine Sulfate (Atropine Sulfate 0.1 Mg/Ml 10ml Syr) 0.5 mg IV NOW PRN PRN Reason: bradycardia Stop: 07/21/20 00:24 Enalapril Maleate (Enalapril Maleate 10 Mg Tab) 20 mg PO BID [facility] Stop: 07/21/20 08:59 Last Admin: 06/21/20 19:52 Dose: 20 mg Documented by: Hydrochlorothiazide (Hydrochlorothiazide 25 Mg Tab) 25 mg PO DAILY [facility] Stop: 07/22/20 08:59 Levothyroxine Sodium (Levothyroxine Sodium 88 Mcg Tablet) 88 mcg PO DAILYBB [facility] Stop: 07/21/20 06:29 Last Admin: 06/21/20 06:22 Dose: Not Given Documented by: Metoprolol Succinate (Metoprolol Succ 50mg Ext Rel Tab) 100 mg PO BID [facility] Stop: 07/22/20 08:59 Ondansetron HCl (Ondansetron Inj 2 Mg/Ml 2 Ml Vial) 4 mg IV Q6H PRN PRN Reason: Nausea Stop: 07/20/20 19:49 Pantoprazole Sodium (Pantoprazole 40 Mg Tab) 40 mg PO DAILY [facility]; Protocol Stop: 07/21/20 08:59 Last Admin: 06/21/20 08:26 Dose: 40 mg Documented by: PG Care Time/CCT Total # of Minutes Spent Total Time Spent with Patient: Total time spent is greater than 50% in coordination of care (as documented) at patient's floor/unit and/or counseling patient: Coding Level of Care Code 79905 Subseq Hosp Care Lvl 3 Diagnoses Heart block AV complete I44.2 Near syncope R55 Bradycardia R00.1 CAD (coronary artery disease), [place] coronary artery I25.10 HTN (hypertension) I10 Hyperlipidemia E78.5 Gout M10.9 Hypothyroidism E03.9 GERD (gastroesophageal reflux disease) K21.9 DVT prophylaxis Z29.9
--- NOTE | 2020-06-21 23:34 | Electrocardiogram Report ---
Test Reason : Blood Pressure : / mmHG Vent. Rate : 080 BPM Atrial Rate : 081 BPM P-R Int : 330 ms QRS Dur : 164 ms QT Int : 440 ms P-R-T Axes : 000 -62 072 degrees QTc Int : 507 ms Sinus rhythm with 1st degree A-V block with Premature atrial complexes Right bundle branch block Left anterior fascicular block Bifascicular block Voltage criteria for left ventricular hypertrophy Abnormal ECG When compared with ECG of 11-JUN-2014 10:11, CO interval has increased Premature atrial complexes are now Present Confirmed by Mariusz Allen ([id number]) on 06/21/2020 11:34:29 PM Referred By: REFERRED SELF Confirmed By:Mariusz Allen
--- NOTE | 2020-06-21 23:47 | Electrocardiogram Report ---
Test Reason : Blood Pressure : / mmHG Vent. Rate : 060 BPM Atrial Rate : 089 BPM P-R Int : 000 ms QRS Dur : 160 ms QT Int : 516 ms P-R-T Axes : 000 -61 008 degrees QTc Int : 516 ms Sinus rhythm with 1st degree A-V block and frequent PACs Right bundle branch block Left anterior fascicular block Bifascicular block Voltage criteria for left ventricular hypertrophy Cannot rule out Septal infarct (cited on or before 20-JUN-2020) Abnormal ECG When compared with ECG of 20-JUN-2020 11:53, No significant change Confirmed by Mariusz Allen ([id number]) on 06/21/2020 11:46:52 PM Referred By: REFERRED SELF Confirmed By:Mariusz Allen
--- NOTE | 2020-06-21 23:50 | Electrocardiogram Report ---
Test Reason : Blood Pressure : / mmHG Vent. Rate : 051 BPM Atrial Rate : 089 BPM P-R Int : 332 ms QRS Dur : 164 ms QT Int : 550 ms P-R-T Axes : 081 -60 -14 degrees QTc Int : 506 ms Sinus rhythm with 2:1 AV block Premature supraventricular complexes Right bundle branch block Left anterior fascicular block Bifascicular block Left ventricular hypertrophy with repolarization abnormality Cannot rule out Septal infarct (cited on or before 20-JUN-2020) Abnormal ECG When compared with ECG of 20-JUN-2020 16:04, 2:1 AV block is now present Confirmed by Mariusz Allen ([id number]) on 06/21/2020 11:50:17 PM Referred By: REFERRED SELF Confirmed By:Mariusz Allen
--- NOTE | 2020-06-21 23:52 | Electrocardiogram Report ---
Test Reason : Blood Pressure : / mmHG Vent. Rate : 069 BPM Atrial Rate : 069 BPM P-R Int : 206 ms QRS Dur : 160 ms QT Int : 530 ms P-R-T Axes : 095 -80 -49 degrees QTc Int : 567 ms AV dual-paced rhythm with frequent ventricular-paced complexes Abnormal ECG When compared with ECG of 20-JUN-2020 19:57, AV pacing is now present Vent. rate has increased BY 24 BPM Confirmed by Mariusz Allen ([id number]) on 06/21/2020 11:52:17 PM Referred By: REFERRED SELF Confirmed By:Mariusz Allen
--- NOTE | 2020-06-21 23:52 | Electrocardiogram Report ---
Test Reason : Blood Pressure : / mmHG Vent. Rate : 045 BPM Atrial Rate : 045 BPM P-R Int : 302 ms QRS Dur : 158 ms QT Int : 552 ms P-R-T Axes : 079 -63 -30 degrees QTc Int : 477 ms Sinus rhythm with 2:1 AV block Right bundle branch block Left anterior fascicular block Bifascicular block Voltage criteria for left ventricular hypertrophy Cannot rule out Septal infarct (cited on or before 20-JUN-2020) T wave abnormality, consider inferior ischemia Abnormal ECG When compared with ECG of 20-JUN-2020 17:21, Premature supraventricular complexes are no longer Present Confirmed by Mariusz Allen ([id number]) on 06/21/2020 11:51:39 PM Referred By: REFERRED SELF Confirmed By:Mariusz Allen
[2020-06-22] MEDS: ACETAMINOPHEN 325 MG TAB PO PRN (00:09)
[2020-06-22] MEDS: LEVOTHYROXINE SODIUM 88 MCG TABLET PO SCH (05:53)
[2020-06-22] MEDS: allopurinoL 100 MG TAB PO SCH (07:42)
[2020-06-22] MEDS: PANTOprazole 40 MG TAB PO SCH (07:42)
[2020-06-22] MEDS: ENALAPRIL MALEATE 10 MG TAB PO SCH (07:42)
[2020-06-22] MEDS: ASPIRIN 81 MG ECTAB PO SCH (07:42)
--- NOTE | 2020-06-22 08:39 | Discharge Summary ---
Date of Service June 22, 2020 Admission HPI Per Admitting Provider Attending: Dr. Faith This is a 75-year-old female that had a near syncopal episode earlier today.She has a past medical history including hyperlipidemia, hypertension, CAD status post CABG and stent placement in 1997, gout, hypothyroidism. The patient states that earlier today she bent over and she felt dizzy and lightheaded and thought she was going to pass out. She presented to the emergency department and is being evaluated for evaluation for admission for presyncope. While in the Emergency department,The patient was found to be bradycardic in the 40s with associated weakness and dizziness.She is currently with transcutaneous pacer pads but they have not been used for pacing at this point.Cardiology has been consulted and it is anticipated that she will be evaluated and most likely receive a pacemaker tomorrow. The patient states that she had Covid in February. She just had her second Covid vaccination with [employer] on Wednesday of this week.She has no headache and no cough.She has no fever.She denies any chest pain or tightness.She has no other acute complaints. Principal Diagnosis complete heart block Discharge Exam Constitutional WD/WN, vitals as above Neck trachea midline, no thyromegaly Respiratory normal respiratory effort, lungs clear to auscultation Cardiovascular RRR, no murmur, no edema Chest (Breasts) Chest: + pacemaker (left upper chest) Gastrointestinal (Abdomen) normal bowel sounds, soft, nontender, no hepatosplenomegaly Musculoskeletal no cyanosis or clubbing, extremities motor strength 5/5 Skin no rashes, warm and dry Neurologic patellar DTR's 2+ bilat, sensation intact and PERRL, EOMI, accommodation nl, no face palsy, no dysarthria Psychiatric A+Ox3, euthymic affect Lymphatic no cervical or axillary lymphadenopathy Discharge Data Allergies Allergy/AdvReac Type Severity Reaction Status Date / Time acetaminophen AdvReac Intermediate VOMITING Verified 06/20/20 14:26 hydrocodone AdvReac Intermediate VOMITING Verified 06/20/20 14:26 Consultations 06/20/20 16:53 ED Decision to Admit Stat 06/20/20 19:50 Consult Cardiology Routine 06/21/20 00:22 Consult Field Auto Appraiser Routine Procedures Performed Operation Date: 06/20/20 21:00 Actual Procedures p Ins/RemTemporary Transvenous Pacer - William Cooley MD s Cineradiography w/Routine Exam - William Cooley MD Operation Date: 06/21/20 08:30 Actual Procedures p Pacer with A/V Leads (Dual) - Robert Lorenzo MD Ordered Studies 06/20/20 15:00 CT angio head w con Stat CT angio neck with con Stat CT head/brain wo con Stat 06/20/20 21:02 CL Cath Imgs for PACS use only Stat 06/21/20 08:23 CL Cath Imgs for PACS use only Routine Hospital Course (1) Heart block AV complete: in the ED patient presented with 1st degree block then 2nd degree block she then proceeded to have a 3 second pause and then 5 second pause and then 9 second pause emergent temporary venous pacer placed by Dr. Cooley PPM placed 06/[address] Lorenzo she feels great, no further symptoms CXR this morning with no pneumothorax plan for follow up for incision check next week limb restrictions, instructions provided (2) Near syncope: due to complete heart block, pauses of 5 and 9 seconds resolved with pacemaker (3) Bradycardia: initially held metoprolol now with pacemaker (4) CAD (coronary artery disease), [place] coronary artery: History of stent in 1997 followed by CABG No further stent placement or surgery per patient Beta-radha held for bradycardia Continue aspirin 81 mg daily mild bump in troponin this morning, no chest pain, could have been from procedure no further work up planned (5) HTN (hypertension): Hypertensive urgency on admission Continue enalapril resume metoprolol now that she has pacer resume HCTZ SBP 180 this morning prior to medications, 150mmHg after medications follow up with PCP, cardiology (6) Hyperlipidemia: Continue atorvastatin 20 mg p.o. daily (7) Gout: No acute symptoms or findings Continue allopurinol 100 mg p.o. daily (8) Hypothyroidism: Continue levothyroxine 88mcg/day (9) GERD (gastroesophageal reflux disease): No current complaints of epigastric pain or reflux Continue omeprazole while inpatient (10) DVT prophylaxis: SCDs TANIA webb Total Time Total Time Spent Total Time Spent (In Minutes): 31 Total Time Includes: Examination of the Patient, Discharge Planning, Medication Reconciliation and Communication With Other Providers (cardiology) Discharge Plan Discharge Items Patient Disposition: Home - Self-Care Reason For Visit: HEART BLOCK Discharge Diagnosis: Complete heart block status post pacemaker placement hypertension Condition on Discharge: Good Goals: follow up with cardiology for pacer check Activity: Resume your previous activity Non-emergency contact: Primary Care Provider and Slab Installer Call non-emergency contact if: you have any medication questions and your symptoms worsen Follow-up/Referrals: Robert Lorenzo MD [Physician] - (2-3 weeks) Katarzyna Subramanian MD [Primary Care Provider] - (one week) Diet: Heart Healthy Addtl Attending Provider Instructions: Medications: no changes Admitted with complete heart block, 5 and 9 second pauses documented on monitor treated with emergent venous temporary pacemaker and then permanent pacemaker by Dr. Lorenzo please follow up with cardiology early next week for wound check until that time, keep the incision dry, keep steri strips intact, if they fall off not a big deal arm restrictions: do not left left arm above shoulder or reach behind back for 6 weeks Pending Studies at Discharge: No Stand-Alone Forms: My [employer], Smoking Cessation Medications and DC Order Prescriptions: Continued omeprazole 20 mg capsule,delayed release(DR/EC) 20 mg PO DAILY Qty: 90 RF: 3 metoprolol succinate 100 mg tablet extended release 24 hr 100 mg PO BID Qty: 180 RF: 1 cholecalciferol (vitamin D3) 1,000 unit capsule 1,000 units PO DAILY RF: 0 levothyroxine 88 mcg tablet 88 mcg PO DAILY Qty: 90 RF: 1 allopurinol 100 mg tablet 100 mg PO DAILY Qty: 90 RF: 1 hydrochlorothiazide 25 mg tablet 25 mg PO DAILY RF: 0 enalapril maleate 20 mg tablet 20 mg PO BID Qty: 180 RF: 3 atorvastatin 20 mg tablet 20 mg PO QPM Qty: 90 RF: 3 aspirin [Adult Aspirin Regimen] 81 mg tablet,delayed release (DR/EC) 81 mg PO QAM RF: 0 Discharge Orders: Discharge Order (Routine); Ordered 06/22/20 Ordered By: Mikhail Faith Admission Data Admit Date/Time: 06/20/20 17:41 Attending Provider: Mikhail Faith Admit Provider: Mikhail Faith Primary Care Provider: Katarzyna Subramanian Other Providers: Rasheed Cabezas ; Mariusz Allen ; Balbir Jovel Other Interventions: Discharge Summary Assessment (RN) Last Done: 06/22/20 11:22 Coding Level of Care Code D/C Day Management >30 mins Diagnoses Heart block AV complete I44.2 Near syncope R55 Bradycardia R00.1 CAD (coronary artery disease), [place] coronary artery I25.10 HTN (hypertension) I10 Hyperlipidemia E78.5 Gout M10.9 Hypothyroidism E03.9 GERD (gastroesophageal reflux disease) K21.9 DVT prophylaxis Z29.9
--- NOTE | 2020-06-22 08:51 | XRay Report ---
XR chest 2V PA/lateral CLINICAL HISTORY: Pacemaker placement COMPARISON STUDY: 06/20/2020 FINDINGS: There are postsurgical changes of midline sternotomy. There is a left subclavian dual-chamb er central venous pacemaker. There is no pneumothorax. Electrode position appears unremarkable. There is no failure. There are no pleural effusions. There is no focal pulmonary consolidation. There is a n old vertebral body compression fracture at the thoracolumbar junction.[ IMPRESSION: No evidence of pneumothorax status post pacemaker placement. ACT 112: Negative or not required by law. Electronically signed by: Isidoro Hooper M.D. 06/22/2020 8:49 AM
[2020-06-22] MEDS ORDERED: hydroCHLOROthiazide 25 MG TAB PO SCH (09:00)
[2020-06-22] MEDS ORDERED: METOPROLOL SUCC 50MG EXT REL TAB PO SCH (09:00)
--- NOTE | 2020-06-22 09:09 | Cardiology Progress Note ---
Date of Service June 22, 2020 Assessment & Plan (1) Status post placement of cardiac pacemaker: The pacemaker is working well today, the leads are good on chest x-ray. She should be stable for discharge today. Admission and Anticipated Discharge Date Admission Date: June 20, 2020 Results & Data ([facility]) Vital Signs (Past 12 Hours) Vital Signs Temp Pulse Resp BP Pulse Ox 06/22/20 07:28 36.8 C 86 17 183/64 H 92 06/22/20 04:14 36.7 C 81 18 172/57 H 92 06/21/20 23:53 36.9 C 97 H 16 189/64 H 93 Laboratory Results Intake and Output 06/21/20 06/22/20 06/22/20 22:59 06:59 14:59 Intake Total 800 / 2043.333 150 / 2043.333 Balance 800 / 2043.333 150 / 2043.333 Intake: Oral 800 / 1190 150 / 1190 Other: Weight 76.1 kg Weight Measurement Method Standing Scale Diagnostic Findings Postop electrocardiogram: Normal dual-chamber pacing. Chest x-ray: Good lead position, no pneumothorax. Pacemaker interrogation: Excellent pacing and sensing characteristics. PG Care Time/CCT Total # of Minutes Spent Total Time Spent with Patient: Total time spent is greater than 50% in coordination of care (as documented) at patient's floor/unit and/or counseling patient: Coding Level of Care Code 16685 Post Operative Follow-Up Diagnoses Status post placement of cardiac pacemaker Z95.0 CPT Codes Dual Lead Pacemaker System - 67331 ([id number])
--- NOTE | 2020-06-22 09:10 | Post Anesthesia Assessment ---
Date of Service June 22, 2020 Post Sedation Assessment Vital Signs Temp Pulse Pulse Pulse Resp BP Pulse Ox 06/22/20 07:28 36.8 C 86 17 183/64 H 92 06/22/20 04:14 36.7 C 81 18 172/57 H 92 06/21/20 23:53 36.9 C 97 H 16 189/64 H 93 06/21/20 19:57 36.8 C 93 H 18 187/61 H 93 06/21/20 15:13 36.6 C 67 18 163/67 H 93 06/21/20 13:00 70 137/64 06/21/20 12:30 71 158/72 H 06/21/20 12:00 73 147/64 H 94 06/21/20 11:30 36.7 C 72 18 158/64 H 96 06/21/20 11:21 36.7 C 75 18 148/53 H 95 06/21/20 11:00 75 06/21/20 10:51 36.6 C 71 69 18 153/64 H 94 06/21/20 10:32 67 16 171/50 H 94 06/21/20 10:15 67 16 164/48 H 94 Recovery Score Activity: Moves 4 extremities Respiration: Deep Breath/Cough Circulation: +/-20% PreAnes Value Consciousness: Fully Awake Oxygen Saturation: > 92% On Room Air Post Anesthesia Score: 10 Discharge Sedation Level of Care: Fast Track Phase II Post Sedation Plan On clinical assessment, the patient appears to have tolerated the sedation without complications. Patient is recovering as anticipated. Patient will continue to be monitored by nursing and may be discharged when sedation discharge criteria are met per below protocol. Upon Completions of procedure up to 15 minutes continue every 5 minute vital signs and the P.A.R. score; then discharge to a Phase I or Fast Track to Phase II per the following guidelines: * Discharge Patient to appropriate Phase II area if PAR is 8 or greater or return to pre- procedure baseline. The post - procedure orders will be as directed. * If PAR score is less than 8 or not return to pre-procedure baseline then patient will follow Phase I monitoring till PAR is reached for Phase II. The Phase I may be done in procedure room or may call to secure a Phase I area. * If naloxone or flumazenil are used for reversal, hold in Phase I for continued monitoring from when last reversal dose was given for a minimum of 60 minutes or longer pending the nurse and/or physician discretion of patient condition before discharge to Phase II. Please call the Sedation Physician to re-evaluate and complete post-note for discharge to Phase II area. Do NOT discharge from procedure sedation or Phase 1 until post- sedation evaluation note is complete by procedure /sedation MD Sedation Discharge Instructions to be given to the patient at discharge to home.
== END 2020-06-22 12:30 | disposition home or self-care (01) | DRG 244 ==
LOC: ED 11:46 → 2E 17:41 → 1E 22:13 → 2S 06-21 10:43
DX: I25.10 Atherosclerotic heart disease of native coronary artery without angina pectoris; I25.2 Old myocardial infarction; Z79.890 Hormone replacement therapy; M10.9 Gout, unspecified; E03.9 Hypothyroidism, unspecified; Z95.5 Presence of coronary angioplasty implant and graft; I65.29 Occlusion and stenosis of unspecified carotid artery; Z88.5 Allergy status to narcotic agent; Z87.891 Personal history of nicotine dependence; K21.9 Gastro-esophageal reflux disease without esophagitis; E83.42 Hypomagnesemia; E78.5 Hyperlipidemia, unspecified; I10 Essential (primary) hypertension; Z79.899 Other long term (current) drug therapy; Z82.49 Family history of ischemic heart disease and other diseases of the circulatory system; I44.2 Atrioventricular block, complete; E78.00 Pure hypercholesterolemia, unspecified; M81.0 Age-related osteoporosis without current pathological fracture; Z86.16 Personal history of COVID-19; Z79.82 Long term (current) use of aspirin; I35.0 Nonrheumatic aortic (valve) stenosis; I16.0 Hypertensive urgency; Z88.6 Allergy status to analgesic agent; Z20.822 Contact with and (suspected) exposure to COVID-19; R73.9 Hyperglycemia, unspecified; Z95.1 Presence of aortocoronary bypass graft

== ENCOUNTER 2022-08-21 17:02 | Inpatient (IN) ==
[2022-08-21] MEDS ORDERED: CEFEPIME 2,000 MG/20 ML VIAL IV STA (17:17)
[2022-08-21] MEDS ORDERED: ALBUT/IPRATROP 3MG/0.5MG NEB 3 ML VIAL NEB STA (17:19)
--- NOTE | 2022-08-21 17:22 | Emergency Department Note ---
Impression & Plan Right lower lobe pneumonia, Hypoxia ED Provider Note INFORMANT: Patient ED PROVIDER(S): Ciro Weber DO CHIEF COMPLAINT: Shortness of breath and cough PLAN: Disposition: Admission Outpatient prescription management: [none] Discussion with: I spoke with the hospitalist, who will see the patient for admission/observation and further evaluation and consultation. MEDICAL DECISION MAKING: This is a 77-year-old female who presents to the ED with a chief complaint of c ough and shortness of breath. She has had a cough for about 7 days. She reports increasing shortness of breath in addition to worsening cough. She saw her PCP today and was found to have low oxygen saturations and was sent here for further evaluation. The patient had 85% oxygen saturation on room air here. She does not use home oxygen. The daughter is also been recently sick. On 2 L she is saturating 96%. She states that her cough is mostly nonproductive. Initial blood pressure is elevated 185/61. Saturations 85% on room air. Lungs. Mostly clear but slightly diminished in the bases. Heart is regular rate and rhythm. No rashes. Abdomen soft nontender. Other exam findings are u nremarkable. A CBC did not show concerning leukocytosis or anemia. Sodium is 129. Lactic acid is negative. Troponin is mildly elevated 31.8. This could be demand related. X-ray shows right lower lobe pneumonia. EKG shows a paced ventricular rhythm at a rate of 70. The patient was told the results. She was given oxygen to maintain saturations above 90%. She was given empiric IV cefepime. She was also given a liter normal saline IV and an albuterol nebulizer treatment. She will be seen by the hospitalist for further evaluation and care. Triage Nursing notes reviewed. Vital Signs: reviewed Prior /Outside records reviewed: none Differential diagnosis: Pneumonia, sepsis, pneumothorax, asthma exacerbation, other. Diagnostics, as interpreted by me: 12 lead ECG: Paced ventricular rhythm at a rate of 70. No PVCs. Cardiac Monitoring ordered: Paced ventricular rhythm in the 70s. Medical decision rules: none Imaging studies: Chest x-ray: Right lower lobe pneumonia. Procedures: none. Critical care: none. HPI: See MDM above. PAST MEDICAL HISTORY: See Below PAST SURGICAL HISTORY: See Below SOCIAL HISTORY: See Below HOME MEDICATIONS:See Below ALLERGIES: See Below VITALS: See Below PHYSICAL EXAMINATION: See MDM for positive findings otherwise unremarkable. CONSTITUTIONAL/VITAL SIGNS: Reviewed GENERAL:done as appropriate INTEGUMENTARY: done as appropriate HEAD: done as appropriate EYES: done as appropriate RESPIRATORY: done as appropriate CARDIOVASCULAR:done as appropriate GI/ABDOMEN:done as appropriate EXTREMITIES: done as appropriate NEUROLOGICAL: done as appropriate PSYCHIATRIC:done as appropriate MUSCULOSKELETAL:done as appropriate TRIAGE NURSING DOCUMENTATION REVIEWED. Past Med/Surg History Medical History Ambulatory dysfunction Aortic stenosis Arteriosclerotic cardiovascular disease Bradycardia Carotid atherosclerosis Cerebral artery occlusion Dizziness Eczema Gout Heart block AV complete HTN (hypertension) Hypercholesterolemia Hyperglycemia Hyperlipidemia Hypomagnesemia Hypothyroidism Intermittent claudication Near syncope Osteoporosis Radiculopathy Surgical History Hx of heart surgery Hx of knee surgery Status post placement of cardiac pacemaker 06/21/20 Dr. Robert Lorenzo Family History Mother Alcohol abuse H/O oral cancer Brother Parkinson disease, symptomatic Colon cancer Denies family history of Ovarian cancer Prostate cancer Myocardial infarction Breast cancer Colorectal cancer Social History Smoking Status: Former smoker Tobacco Type: Cigarettes Second Hand Exposure: No; Do You Dip or Chew Tobacco: No; Hx Alcohol Use: No Hx Substance Use: No Preferred Language: Urdu Communication Ability: Effective Wind Science And Planning Required: No Beliefs That Will Affect Care: None marital status: Current Living Situation: Spouse current occupational status: retired How many Children do You have: 1 Feels Safe at Home: Yes Childhood Exposure to Second-Hand Smoke: Yes Diet: regular caffeine: No Dental Care, Regularly: Yes Physical Activity Frequency: Daily Seatbelt Use: always Sunscreen Use: Yes Assistive Devices: None Allergies Allergies Allergy/AdvReac Type Severity Reaction Status Date / Time hydrocodone AdvReac Intermediate VOMITING Verified 08/21/22 13:39 Home Meds Home Medications Medication Instructions Recorded Confirmed cholecalciferol (vitamin D3) 25 1,000 units PO DAILY 11/16/18 08/21/22 mcg (1,000 unit) capsule aspirin 81 mg tablet,delayed 81 mg PO QAM 06/20/20 08/21/22 release (Adult Aspirin Regimen) Previous Rx's Medication Instructions Recorded omeprazole 20 mg capsule,delayed 20 mg PO DAILY #90 caps 10/29/21 release atorvastatin 20 mg tablet 20 mg PO QPM #90 tabs 11/14/21 enalapril maleate 20 mg tablet 20 mg PO BID #180 tabs 11/14/21 levothyroxine 75 mcg capsule 75 mcg PO DAILY #90 caps 03/27/22 metoprolol succinate 100 mg 100 mg PO BID #180 tabs 03/27/22 tablet,extended release 24 hr allopurinol 100 mg tablet 100 mg PO DAILY #90 ea 06/02/22 hydrochlorothiazide 25 mg tablet 25 mg PO DAILY #90 tabs 07/27/22 benzonatate 100 mg capsule 100 mg PO TID PRN cough #30 caps 08/17/22 Results & Data (ED) Vital Signs Vital Signs - 24 hr 08/21/22 17:14 08/21/22 17:14 08/21/22 17:14 Temperature 36.8 C Temperature Source Oral Pulse Rate 72 Pulse Rate from SpO2 Sensor Pulse Rhythm Regular Respiratory Rate 20 Respiratory Effort / Characteristics Non-Labored Spontaneous Non-Labored Spontaneous Respiratory Depth Normal Respiratory Pattern Regular Blood Pressure 185/61 H Blood Pressure Mean 102 Pulse Oximetry 85 L 85 L Oxygen Delivery Method Room Air Room Air Oxygen Flow Rate 0 Sepsis Recent Fever Within 48 Hours No Sepsis New/Unexplained Change in Mental Status N/A Sepsis Action Taken by Nursing No Action Required Oxygen Flow Rate - Titration 2 Pulse Oximetry Post Tiitration 97 08/21/22 17:14 08/21/22 17:22 08/21/22 17:39 Temperature 36.8 C Temperature Source Oral Pulse Rate 74 Pulse Rate from SpO2 Sensor Pulse Rhythm Respiratory Rate Respiratory Effort / Characteristics Respiratory Depth Respiratory Pattern Blood Pressure Blood Pressure Mean Pulse Oximetry 97 Oxygen Delivery Method Nasal Cannula Oxygen Flow Rate 2 Sepsis Recent Fever Within 48 Hours Sepsis New/Unexplained Change in Mental Status Sepsis Action Taken by Nursing Oxygen Flow Rate - Titration Pulse Oximetry Post Tiitration 08/21/22 17:20 08/21/22 17:30 08/21/22 17:30 Temperature Temperature Source Pulse Rate 74 71 Pulse Rate from SpO2 Sensor 72 72 Pulse Rhythm Respiratory Rate 16 20 Respiratory Effort / Characteristics Respiratory Depth Respiratory Pattern Blood Pressure 198/76 H Blood Pressure Mean 116 Pulse Oximetry 100 100 Oxygen Delivery Method Oxygen Flow Rate Sepsis Recent Fever Within 48 Hours Sepsis New/Unexplained Change in Mental Status Sepsis Action Taken by Nursing Oxygen Flow Rate - Titration Pulse Oximetry Post Tiitration Laboratory Data 08/21/22 17:35 08/21/22 17:35 Lab Results 08/21/22 08/21/22 08/21/22 Range/Units 17:35 17:35 18:06 WBC 4.74 L (4.8-10.8) K/ul RBC 4.36 (4.20-5.40) M/uL Hgb 12.3 (12.0-16.0) g/dl Hct 37.3 (37.0-47.0) % MCV 85.6 (80.0-100.0) fL MCH 28.2 (25.0-34.0) pg MCHC 33.0 (32.0-36.0) g/dL RDW Std Deviation 41.2 (36.4-46.3) fL RDW Coeff of Chani 13.2 (11.5-14.5) % Plt Count 146 (130-400) K/uL MPV 10.9 (9.4-12.4) fL Immature Gran % (Auto) 0.0 % Neut % (Auto) 53.6 % Lymph % (Auto) 25.9 % [place] % (Auto) 17.1 % Eos % (Auto) 3.0 % Baso % (Auto) 0.4 % Neut # (Auto) 2.54 (1.40-6.50) K/uL Lymph # (Auto) 1.23 (1.2-3.4) K/uL [place] # (Auto) 0.81 H (0.11-0.59) K/uL Eos # (Auto) 0.14 (0-0.50) K/uL Baso # (Auto) 0.02 (0-0.2) K/uL Immature Gran # (Auto) 0.00 L (0.01-0.20) K/uL Sodium 129 L (136-145) mmol/L Potassium 3.7 (3.5-5.1) mmol/L Chloride 93 L (98-107) mmol/L Carbon Dioxide 30 (21-32) mmol/L Anion Gap 6 (3-11) BUN 29 H (6-23) mg/dl Creatinine 1.13 (0.6-1.2) mg/dl Est Cr Clr Drug Dosing Not Reportable Est GFR ( Amer) 54.3 ml/min Est GFR (Non-Af Amer) 46.8 ml/min BUN/Creatinine Ratio 25.7 H (10-20) Glucose 103 H (70-99(Fasting)) mg/dl Lactate 0.4 (0.4-2.0) mmol/L Calcium 8.9 (8.6-10.3) mg/dl Magnesium 1.6 L (1.7-2.4) mg/dl Total Bilirubin 0.4 (0.2-1.0) mg/dl Direct Bilirubin 0.0 (0-0.2) mg/dl AST 34 (13-39) U/L ALT 15 (7-52) U/L Alkaline Phosphatase 61 (34-104) U/L Troponin I High Sens 31.8 H (0-14) pg/ml Total Protein 7.0 (6.0-8.3) gm/dl Albumin 3.6 (3.4-5.0) gm/dl Administered Medications Discontinued Medications Albuterol (Albut/Ipratrop 3mg/0.5mg Neb 3 Ml Vial) 3 ml NEB NOW STA; Protocol Stop: 08/21/22 17:20 Last Admin: 08/21/22 17:53 Dose: 3 ml Documented By: CYN Cefepime HCl (Maxipime) 2,000 mg in 20 mls @ 5 mls/min IV NOW STA; Protocol Stop: 08/21/22 17:20 Last Admin: 08/21/22 17:53 Dose: 5 mls/min Documented By: CYN Sodium Chloride (Nss 1000ml) 1,000 mls @ 999 mls/hr IV .Q1H1M SALVATORE Stop: 08/21/22 18:30 Last Admin: 08/21/22 17:53 Dose: 999 mls/hr Documented By: CYN Imaging Data Radiologist's Impression: Chest X-Ray 08/21/22 17:17 XR chest 1V portable HISTORY: 77 years-old Female Sepsis acute sepsis COMPARISON: 06/22/2020 TECHNIQUE: AP view of the chest FINDINGS: Cardiac silhouette is enlarged prior median sternotomy with left subclavian pacer. Severe emphysema with chronic interstitial coarsening. There are new patchy right basilar opacities. No pneumothorax or pleural effusion. Degenerative changes of the shoulders and spine. IMPRESSION: 1. Cardiomegaly without pulmonary edema. 2. Emphysema with chronic interstitial coarsening. 3. Right basilar opacities may represent atelectasis versus pneumonia. ACT 112: Negative or not required by law. The above report was generated using voice recognition software. It may contain grammatical, syntax or spelling errors. Electronically signed by: John Honeycutt M.D. 08/21/2022 5:48 PM Discharge Plan Visit Data Chief Complaint: Shortness of Breath/Dyspnea Stated Complaint: SOB, COUGHING ED Provider: Ciro Weber Discharge Problem: Right lower lobe pneumonia, Hypoxia Patient Disposition: Being Evaluated by Hospitalist Forms Stand Alone Forms: [facility] Prescriptions Prescriptions: No Action omeprazole 20 mg capsule,delayed release(DR/EC) 20 mg PO DAILY Qty: 90 3RF enalapril maleate 20 mg tablet 20 mg PO BID Qty: 180 3RF atorvastatin 20 mg tablet 20 mg PO QPM Qty: 90 3RF metoprolol succinate 100 mg tablet extended release 24 hr 100 mg PO BID Qty: 180 1RF levothyroxine 75 mcg capsule 75 mcg PO DAILY Qty: 90 1RF allopurinol 100 mg tablet 100 mg PO DAILY Qty: 90 1RF hydrochlorothiazide 25 mg tablet 25 mg PO DAILY Qty: 90 3RF benzonatate 100 mg capsule 100 mg PO TID PRN (Reason: cough) Qty: 30 2RF cholecalciferol (vitamin D3) 1,000 unit capsule 1,000 units PO DAILY aspirin [Adult Aspirin Regimen] 81 mg tablet,delayed release (DR/EC) 81 mg PO QAM Referrals Referrals: Katarzyna Subramanian MD [Primary Care Provider] -
[2022-08-21] MEDS ORDERED: SODIUM CHLORIDE 0.9% 1000ML 1,000 ML IV SCH (17:30)
--- NOTE | 2022-08-21 17:50 | XRay Report ---
XR chest 1V portable HISTORY: 77 years-old Female Sepsis acute sepsis COMPARISON: 06/22/2020 TECHNIQUE: AP view of the chest FINDINGS: Cardiac silhouette is enlarged prior median sternotomy with left subclavian pacer. Severe emphysema w ith chronic interstitial coarsening. There are new patchy right basilar opacities. No pneumothorax or pleural effusion. Degenerative changes of the shoulders and spine. IMPRESSION: 1. Cardiomegaly without pulmonary edema. 2. Emphysema with chronic interstitial coarsening. 3. Right basilar opacities may represent atelectasis versus pneumonia. ACT 112: Negative or not required by law. The above report was generated using voice recognition software. It may contain grammatical, syntax o r spelling errors. Electronically signed by: John Honeycutt M.D. 08/21/2022 5:48 PM
[2022-08-21 18:18] LABS: Alanine Aminotransferase 15 U/L (7-52); Albumin Level 3.6 gm/dl (3.4-5.0); Alkaline Phosphatase 61 U/L (34-104); Anion Gap 6 (3-11); Aspartate Aminotransferase 34 U/L (13-39); BUN Creatinine Ratio 25.7 (10-20); Bilirubin,Total 0.4 mg/dl (0.2-1.0); Blood Urea Nitrogen 29 mg/dl (6-23); Calcium 8.9 mg/dl (8.6-10.3); Carbon Dioxide 30 mmol/L (21-32); Chloride 93 mmol/L (98-107); Est GFR (African American) 54.3 ml/min; Est GFR (Non-African American) 46.8 ml/min; Glucose 103 mg/dl (70-99(Fasting)); Magnesium 1.6 mg/dl (1.7-2.4); Potassium 3.7 mmol/L (3.5-5.1); Sodium 129 mmol/L (136-145)
[2022-08-21 18:21] LABS: Basophils # (auto) 0.02 K/uL (0-0.2); Basophils % (auto) 0.4 %; Eosinophils # (auto) 0.14 K/uL (0-0.50); Hematocrit (blood only) 37.3 % (37.0-47.0); Hemoglobin 12.3 g/dl (12.0-16.0); Lymphocytes # (auto) 1.23 K/uL (1.2-3.4); Lymphocytes % (auto) 25.9 %; Mean Corpuscular Hemoglobin 28.2 pg (25.0-34.0); Mean Corpuscular Volume 85.6 fL (80.0-100.0); Mean Platelet Volume 10.9 fL (9.4-12.4); Monocytes # (auto) 0.81 K/uL (0.11-0.59); Monocytes % (auto) 17.1 %; Neutrophils # (auto) 2.54 K/uL (1.40-6.50); Neutrophils % (auto) 53.6 %; Platelet Count 146 K/uL (130-400); RDW Coefficient of Variation 13.2 % (11.5-14.5); RDW Standard Deviation 41.2 fL (36.4-46.3); Red Blood Count 4.36 M/uL (4.20-5.40); White Blood Count 4.74 K/ul (4.8-10.8)
[2022-08-21 18:22] LABS: Troponin I High Sensitivity 31.8 pg/ml (0-14)
--- NOTE | 2022-08-21 18:47 | History & Physical Report ---
Date of Service August 21, 2022 Assessment & Plan (1) Right lower lobe pneumonia: Plan: Renuka presents with 1 week of worsening dyspnea on exertion and hypoxia and who was found to have a suspected right lower lobe pneumonia on admitting chest x- ray. Her daughter has also been sick with an upper respiratory infection. Acute hypoxic respiratory failure 2/2 right lower lobe pneumonia newNo leukocytosis, sodium 129, creatinine 1.13, mag 1.6 - CXR: Cardiomegaly without pulmonary edema. Emphysema with chronic interstitial coarsening. Right basilar opacity suspicious for pneumonia - Troponin 31.8 without chest pain, suspect demand - Procalcitonin pending -Bio fire pending. Continue cefepime every 8 hours given healthcare exposure, sputum culture pending Patient does not appear septic on admission - Patient denies baseline lung disease/COPD/asthma/tobacco use Titrate oxygen to SPO2 goal 94% History of CAD s/p bypass, pacemaker placement Pacemaker placed due to presyncope with third-degree heart block 2020, doing well with no syncope since No acute heart failure exacerbation appreciated Continue aspirin, atorvastatin, Toprol, enalapril Troponin is with elevation to 31.8 on admission suspect demand, trended EKG without acute ischemic changes Clinically without any chest pain both at rest, at time of assessment, and preceding admission Paced rhythm Hypothyroidism Continue Synthroid Hypomagnesemia Repletion ordered, recheck in morning Hypertension Continue enalapril, hydrochlorothiazide, metoprolol as noted. Patient had taken morning meds but not all afternoon meds and is hypertensive. 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 Patient is pending CTA with runoff for continue outpatient follow-up Feet are warm, with intact sensation to soft touch bilaterally, and c intact cap refill on the left and diminished but intact cap refill on the right. No signs of critical ischemia at time of admitting assessment If clinical worsening/change can consider getting a CTA runoff while inpatient, however no acute exacerbation is appreciated and can continue outpatient follow-up for this Continued on aspirin DVT prophylaxis: Lovenox Diet: Heart healthy Disposition: Medical telemetry while on cardiac trend CODE STATUS: Full code (2) Hypoxia: (3) PAD (peripheral artery disease): (4) Status post placement of cardiac pacemaker: (5) GERD (gastroesophageal reflux disease): (6) CAD (coronary artery disease), [place] coronary artery: (7) Hypothyroidism: (8) Hypercholesterolemia: History of Present Illness Primary Care Provider: Katarzyna Subramanian MD Renuka Jones is a 77-year-old female with a past medical history of peripheral artery disease, GERD, CAD, hypothyroidism, hypercholesterolemia, hypertension, hyperlipidemia, CABG, NSTEMI with atrial sensed ventricular paced heart rhythm who presents with worsening cough and shortness of breath worsening over 7 days patient was referred from her PCP office for hypoxia to 85%. She notes her daughter has has been sick with an upper respiratory illness. Cough x7 days. Cough productive but swallows the sputum and doesn't know the color, what she has seen was clear No fevers. +Chills. No nausea/vomiting/diarrhea Daughter with URI x3 weeks which is slowly improving 'just hung on forever.' NO chest pain or chest pressure +short of breath with exertion, sometimes coughing but not at rest No home o2 requirements Did take morning medications, has not taken statin and not sure if enalapril or metoprolol. No lung problems, no copd or asthma at baseline Hx of pacemaker and open bipass surgery. No chest pain in preceding weeks. Denies issues with fluid/heart failure On aspirin daily, no blood thinners Medical History: Reviewed Medications: Reviewed Surgical History: Reviewed Family history: Reviewed Allergies: Reviewed Social History: No tobacco use. No etoh use. Code Status: Full Code. Surrogate DM would be her Allergies Allergy/AdvReac Type Severity Reaction Status Date / Time hydrocodone AdvReac Intermediate VOMITING Verified 08/21/22 18:38 Home Medications Medication Instructions Recorded Confirmed Type cholecalciferol (vitamin D3) 25 1,000 units PO DAILY 11/16/18 08/21/22 History mcg (1,000 unit) capsule aspirin 81 mg tablet,delayed 81 mg PO QAM 06/20/20 08/21/22 History release (Adult Aspirin Regimen) omeprazole 20 mg capsule,delayed 20 mg PO DAILY #90 caps 10/29/21 08/21/22 Rx release atorvastatin 20 mg tablet 20 mg PO QPM #90 tabs 11/14/21 08/21/22 Rx enalapril maleate 20 mg tablet 20 mg PO BID #180 tabs 11/14/21 08/21/22 Rx levothyroxine 75 mcg capsule 75 mcg PO DAILY #90 caps 03/27/22 08/21/22 Rx metoprolol succinate 100 mg 100 mg PO BID #180 tabs 03/27/22 08/21/22 Rx tablet,extended release 24 hr allopurinol 100 mg tablet 100 mg PO DAILY #90 ea 06/02/22 08/21/22 Rx hydrochlorothiazide 25 mg tablet 25 mg PO DAILY #90 tabs 07/27/22 08/21/22 Rx benzonatate 100 mg capsule 100 mg PO TID PRN cough #30 caps 08/17/22 08/21/22 Rx Past Med/Surg History Medical History Ambulatory dysfunction Aortic stenosis Arteriosclerotic cardiovascular disease Bradycardia Carotid atherosclerosis Cerebral artery occlusion Dizziness Eczema Gout Heart block AV complete HTN (hypertension) Hypercholesterolemia Hyperglycemia Hyperlipidemia Hypomagnesemia Hypothyroidism Intermittent claudication Near syncope Osteoporosis Radiculopathy Surgical History Hx of heart surgery Hx of knee surgery Status post placement of cardiac pacemaker 06/21/20 Dr. 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 NAD. Cooperative. HEENT: Atraumatic, normocephalic. Vision/hearing intact Pulm: Diffusely coarse, increased crackles in right lower lobe. No wheezing at time of assessment. Cardiac: RRR, -mrg. Radial pulses intact and symmetrical. Abdominal: Nontender, nondistended, soft. BS present. Extremities: Lower extremities equal in warmth. Cap refill less than 2 seconds in left hallux, sluggish but intact in right hallux. Sensation soft touch intact in feet bilaterally, ankle dorsiflexion/plantarflexion 5/5 bilaterally. Results & Data Results & Data Vital Signs (Past 12 Hours) Vital Signs Temp Pulse Resp BP Pulse Ox O2 Del Method O2 Flow Rate 08/21/22 17:30 71 20 100 08/21/22 17:30 198/76 H 08/21/22 17:20 74 16 100 08/21/22 17:39 97 Nasal Cannula 2 08/21/22 17:22 74 08/21/22 17:14 36.8 C 08/21/22 17:14 85 L Room Air 0 08/21/22 17:14 36.8 C 72 20 185/61 H 85 L Room Air PG Care Time/CCT Total # of Minutes Spent Total Time Spent with Patient: Total time spent is greater than 50% in coordination of care (as documented) at patient's floor/unit and/or counseling patient: Coding Level of Care Code 95018 INT INP/OBS CARE 3/75MIN Diagnoses Right lower lobe pneumonia J18.9 Hypoxia R09.02 PAD (peripheral artery disease) I73.9 Status post placement of cardiac pacemaker Z95.0 GERD (gastroesophageal reflux disease) K21.9 CAD (coronary artery disease), [place] coronary artery I25.10 Hypothyroidism E03.9 Hypercholesterolemia E78.00
[2022-08-21 18:52] LABS: Adenovirus PCR Not Detected (NotDetected); Bordetella parapertussis PCR Not Detected (NotDetected); Bordetella pertussis PCR Not Detected (NotDetected); Chlamydia pneumoniae PCR Not Detected (NotDetected); Coronavirus 229E PCR Not Detected (NotDetected); Coronavirus CoV-2 (COVID19)PCR Not Detected (NotDetected); Coronavirus HKU1 PCR Not Detected (NotDetected); Coronavirus NL63 PCR Not Detected (NotDetected); Coronavirus OC43PCR Not Detected (NotDetected); Human Metapneumovirus PCR Not Detected (NotDetected); Influenza A PCR Not Detected (NotDetected); Influenza B PCR Not Detected (NotDetected); Mycoplasma pneumoniae PCR Not Detected (NotDetected); Parainfluenza Virus 1 PCR Not Detected (NotDetected); Parainfluenza Virus 2 PCR Not Detected (NotDetected); Parainfluenza Virus 4 PCR Not Detected (NotDetected); Respiratory Syncytial VirusPCR Not Detected (NotDetected); Rhinovirus/Enterovirus PCR Not Detected (NotDetected)
[2022-08-21 18:52] LABS: Appearance Urine Clear (Clear); Bacteria Urine Automated Negative (Negative); Bilirubin Urine Negative (Negative); Blood Urine Trace (Negative); Color Urine Yellow; Epithelial Cell Urine Auto 20-30 /lpf (0-5); Glucose Urine UA Negative (Negative); Ketones Urine Negative (Negative); Leukocyte Esterase Urine Trace (Negative); Nitrite Urine Negative (Negative); Protein Urine 2+ (Negative); RBC Urine Automated 0-4 /hpf (0-4); Specific Gravity Urine 1.011 (1.000-1.030); Urobilinogen Urine Negative (Negative); pH Urine 5.5 (4.5-7.5)
[2022-08-21 18:57] LABS: Parainfluenza Virus 3 PCR DETECTED (NotDetected)
[2022-08-21] MEDS ORDERED: METOPROLOL SUCC 50MG EXT REL TAB PO STA (19:05)
[2022-08-21] MEDS ORDERED: ENALAPRIL MALEATE 10 MG TAB PO STA (19:05)
[2022-08-21] MEDS ORDERED: hydrALAZINE HCL 20 MG/ML VIAL IV PRN (19:18)
[2022-08-21] MEDS: MAGNESIUM SULFATE / D5W 1 GM/100 ML BAG IV SCH ×2 (19:53→21:58)
[2022-08-21] MEDS ORDERED: BENZONATATE 100 MG CAPSULE PO PRN (20:57)
[2022-08-21] MEDS ORDERED: ACETAMINOPHEN 325 MG TAB PO PRN (20:57)
[2022-08-21] MEDS ORDERED: POLYETHYLENE (MIRALAX) 17 GM PACK PO PRN (20:57)
[2022-08-21] MEDS: Patient's HEIGHT &/or WEIGHT Needed SCH (21:49)
[2022-08-21] MEDS: ATORVASTATIN 20 MG TAB PO SCH (21:50)
[2022-08-22 04:10] LABS: Magnesium 2.2 mg/dl (1.7-2.4)
[2022-08-22 04:17] LABS: Troponin I High Sensitivity 40.6 pg/ml (0-14)
[2022-08-22] MEDS: LEVOTHYROXINE SODIUM 75 MCG TABLET PO SCH (05:40)
[2022-08-22] MEDS ORDERED: CEFEPIME 2,000 MG in SYRINGE 0 ML IV SCH (06:00)
--- NOTE | 2022-08-22 07:11 | Electrocardiogram Report ---
Test Reason : Blood Pressure : / mmHG Vent. Rate : 070 BPM Atrial Rate : 070 BPM P-R Int : 214 ms QRS Dur : 180 ms QT Int : 492 ms P-R-T Axes : 083 267 079 degrees QTc Int : 531 ms Atrial-sensed ventricular-paced rhythm with prolonged AV conduction Abnormal ECG When compared with ECG of 21-JUN-2020 10:25, No significant change was found Confirmed by Curly Bush ([id number]) on 08/22/2022 7:11:09 AM Referred By: REFERRED SELF Confirmed By:Jj Bush
[2022-08-22] MEDS ORDERED: hydroCHLOROthiazide 25 MG TAB PO SCH (09:00)
[2022-08-22] MEDS ORDERED: SODIUM CHLORIDE 0.9% 1000ML 1,000 ML IV SCH (09:15)
[2022-08-22] MEDS: PANTOprazole 40 MG TAB PO SCH (09:31)
[2022-08-22] MEDS: METOPROLOL SUCC 50MG EXT REL TAB PO SCH ×2 (09:31→21:03)
[2022-08-22] MEDS: allopurinoL 100 MG TAB PO SCH (09:32)
[2022-08-22] MEDS: CHOLECALCIFEROL 1,000 UNITS 25 MCG TAB PO SCH (09:32)
[2022-08-22] MEDS: ASPIRIN 81 MG ECTAB PO SCH (09:32)
[2022-08-22] MEDS: MAGNESIUM OXIDE 400 MG TAB PO SCH (09:32)
[2022-08-22] MEDS: ENALAPRIL MALEATE 10 MG TAB PO SCH ×2 (09:32→21:02)
[2022-08-22] MEDS: ENOXAPARIN INJ 40 MG/0.4 ML SYR SQ SCH (09:33)
[2022-08-22 09:34] LABS: BUN Creatinine Ratio 27.2 (10-20); Calcium 8.9 mg/dl (8.6-10.3); Est GFR (African American) 69.6 ml/min; Est GFR (Non-African American) 60.1 ml/min; Potassium 3.7 mmol/L (3.5-5.1)
[2022-08-22 09:40] LABS: Troponin I High Sensitivity 40.4 pg/ml (0-14)
[2022-08-22 10:25] LABS: Basophils # (auto) 0.01 K/uL (0-0.2); Basophils % (auto) 0.1 %; Eosinophils # (auto) 0.07 K/uL (0-0.50); Eosinophils % (auto) 0.9 %; Hematocrit (blood only) 36.9 % (37.0-47.0); Hemoglobin 12.1 g/dl (12.0-16.0); Immature Granulocytes # (auto) 0.03 K/uL (0.01-0.20); Immature Granulocytes % (auto) 0.4 %; Lymphocytes # (auto) 1.45 K/uL (1.2-3.4); Lymphocytes % (auto) 18.6 %; Mean Corpuscular Hemoglobin 28.5 pg (25.0-34.0); Mean Corpuscular Hgb Conc 32.8 g/dL (32.0-36.0); Mean Corpuscular Volume 86.8 fL (80.0-100.0); Mean Platelet Volume 10.5 fL (9.4-12.4); Monocytes # (auto) 0.88 K/uL (0.11-0.59); Monocytes % (auto) 11.3 %; Neutrophils # (auto) 5.35 K/uL (1.40-6.50); Neutrophils % (auto) 68.7 %; Platelet Count 156 K/uL (130-400); RDW Coefficient of Variation 13.6 % (11.5-14.5); RDW Standard Deviation 42.4 fL (36.4-46.3); Red Blood Count 4.25 M/uL (4.20-5.40); White Blood Count 7.79 K/ul (4.8-10.8)
[2022-08-22] MEDS ORDERED: guaiFENesin/DEXTROM SYRUP 200MG/20MG 10ML UDC PO STA (15:08)
[2022-08-22] MEDS ORDERED: guaiFENesin/DEXTROM SYRUP 200MG/20MG 10ML UDC PO PRN (15:08)
--- NOTE | 2022-08-22 15:10 | Hospitalist Progress Note ---
Date of Service August 22, 2022 Assessment & Plan (1) Right lower lobe pneumonia: Plan: This patient is a 77-year-old female who presents with 1 week of worsening TAMAYO and hypoxia and who was found to have a suspected right lower lobe pneumonia on admitting chest x-ray. Her daughter has also been sick with an upper respiratory infection. Found to be positive for parainfluenza virus Acute hypoxic respiratory failure 2/2 right lower lobe pneumonia on chest [id number] 2 L nasal cannula Procalcitonin negative, suspect viral pneumonia from parainfluenza Was given 1 dose of cefepime but no need to continue antibiotics Patient denies baseline lung disease/COPD/asthma/tobacco use -Continue supplemental O2 to keep pulse ox greater than 90% -Add scheduled DuoNebs for wheezing -Add guaifenesin DM for cough -Add flutter valve -Follow CBC, BMP (2) Hypoxia: Plan: As above, second to parainfluenza virus Supplemental O2 Pulmonary toilet (3) Hyponatremia: Plan: Sodium 129 on admission, urine osmolality consistent with increased ADH, likely due to hypovolemia from acute illness Was given 1 L normal saline and sodium improved already this morning up to 133 Restart normal saline at 100 mL/h x 1 more liter Follow BMP in the morning (4) HTN (hypertension): Plan: Blood pressures are mildly elevated Continue enalapril, metoprolol -Hold HCTZ for hyponatremia -Hydralazine ordered for persistent SBP greater than 180 Well-controlled [employer] (5) PAD (peripheral artery disease): Plan: Patient has right leg numbness with ambulation, recent ASHVIN diminished on the right compared to left lower extremity arterial duplex with flow limitation. Patient is pending CTA with runoff for continue outpatient follow-up Feet are warm, with intact sensation to soft touch bilaterally, and c intact cap refill on the left and diminished but intact cap refill on the right. No signs of critical ischemia at time of admitting assessment If clinical worsening/change can consider getting a CTA runoff while inpatient, however no acute exacerbation is appreciated and can continue outpatient follow-up for this Continued on aspirin, atorvastatin (6) Status post placement of cardiac pacemaker: Plan: Placed for heart block Paced rhythm on telemetry (7) GERD (gastroesophageal reflux disease): Plan: Continue Protonix (8) CAD (coronary artery disease), [place] coronary artery: Plan: History of CAD s/p bypass, pacemaker placement Pacemaker placed due to presyncope with third-degree heart block 2020, doing well with no syncope since No acute heart failure exacerbation appreciated Continue aspirin, atorvastatin, Toprol, enalapril Troponin is with elevation to 31.8 on admission, peaked at 40 and stabilized- suspect myocardial demand ischemia related to hypoxia and acute illness EKG without acute ischemic changes Clinically without any chest pain both at rest, at time of assessment, and preceding admission Paced rhythm (9) Hypothyroidism: Plan: Continue levothyroxine TSH normal at 0.69 in 04/2022 (10) Hypercholesterolemia: Plan: Continue statin Plan DVT prophylaxis-Lovenox Disposition-continued stay in PCU Admission and Anticipated Discharge Date Admission Date: August 21, 2022 Subjective Patient feeling a little bit better today but is coughing quite a bit and requesting cough medicine. Feels little bit short of breath after coughing episodes. She does feel a little bit stronger than when she came in. Is eating and drinking. Telemetry with paced rhythm with rates in the 70s Physical Exam Constitutional: WD/WN, vitals as above Neck: trachea midline, no thyromegaly Respiratory: normal respiratory effort and + cough; not tachypneic Auscultation: + crackles (left and right lower lung rodríguez) and + wheezes; no rhonchi Cardiovascular: RRR, no murmur, no edema Chest (Breasts): Chest: normal inspection of chest Gastrointestinal (Abdomen): normal bowel sounds, soft, nontender, no hepatosplenomegaly Musculoskeletal: Extremities: extremities normal to inspection; no cyanosis and no clubbing Skin: no rashes, warm and dry Neurologic: moves all extremities and awake; no focal motor deficits Psychiatric: A+Ox3, euthymic affect Lymphatic: no lymphedema Results & Data Results & Data Vital Signs (Past 12 Hours) Vital Signs Temp Pulse Pulse Resp BP Pulse Ox O2 Del Method 08/22/22 11:24 36.5 C 74 17 179/79 H 98 Nasal Cannula 08/22/22 09:40 64 08/22/22 07:22 36.6 C 60 17 188/68 H 97 Nasal Cannula 08/22/22 03:43 37.0 C 71 20 167/73 H 93 Nasal Cannula O2 Flow Rate 08/22/22 11:24 4 08/22/22 09:40 08/22/22 07:22 2.5 08/22/22 03:43 3 Laboratory Results CBC, BMP, troponin, procalcitonin, magnesium level, and blood cultures reviewed Urine osmolality and urine sodium reviewed PG Care Time/CCT Total # of Minutes Spent Total Time Spent with Patient: Total time spent is greater than 50% in coordination of care (as documented) at patient's floor/unit and/or counseling patient: Coding Level of Care Code 67941 SUB INP/OBS CARE 3/50MIN Diagnoses Right lower lobe pneumonia J18.9 Hypoxia R09.02 Hyponatremia E87.1 HTN (hypertension) I10 PAD (peripheral artery disease) I73.9 Status post placement of cardiac pacemaker Z95.0 GERD (gastroesophageal reflux disease) K21.9 CAD (coronary artery disease), [place] coronary artery I25.10 Hypothyroidism E03.9 Hypercholesterolemia E78.00
[2022-08-22] MEDS: ALBUT/IPRATROP 3MG/0.5MG NEB 3 ML VIAL NEB SCH ×2 (15:53→19:28)
[2022-08-22] MEDS: ATORVASTATIN 20 MG TAB PO SCH (21:03)
[2022-08-23] MEDS: LEVOTHYROXINE SODIUM 75 MCG TABLET PO SCH (05:39)
[2022-08-23 06:55] LABS: Basophils # (auto) 0.01 K/uL (0-0.2); Basophils % (auto) 0.2 %; Eosinophils % (auto) 1.7 %; Hematocrit (blood only) 33.1 % (37.0-47.0); Hemoglobin 10.8 g/dl (12.0-16.0); Immature Granulocytes # (auto) 0.03 K/uL (0.01-0.20); Immature Granulocytes % (auto) 0.5 %; Lymphocytes # (auto) 1.23 K/uL (1.2-3.4); Lymphocytes % (auto) 21.5 %; Mean Corpuscular Hemoglobin 28.1 pg (25.0-34.0); Mean Corpuscular Hgb Conc 32.6 g/dL (32.0-36.0); Mean Corpuscular Volume 86.2 fL (80.0-100.0); Mean Platelet Volume 11.1 fL (9.4-12.4); Monocytes # (auto) 0.72 K/uL (0.11-0.59); Monocytes % (auto) 12.6 %; Neutrophils # (auto) 3.63 K/uL (1.40-6.50); Neutrophils % (auto) 63.5 %; Platelet Count 125 K/uL (130-400); RDW Coefficient of Variation 13.7 % (11.5-14.5); RDW Standard Deviation 42.7 fL (36.4-46.3); Red Blood Count 3.84 M/uL (4.20-5.40); White Blood Count 5.72 K/ul (4.8-10.8)
[2022-08-23] MEDS: ALBUT/IPRATROP 3MG/0.5MG NEB 3 ML VIAL NEB SCH (06:56)
[2022-08-23 07:13] LABS: BUN Creatinine Ratio 27.1 (10-20); Calcium 8.6 mg/dl (8.6-10.3); Creatinine Clr Calc Pharmacy 53.1 ml/min; Est GFR (African American) 76.6 ml/min; Est GFR (Non-African American) 66.1 ml/min; Potassium 4.1 mmol/L (3.5-5.1)
[2022-08-23] MEDS: ENOXAPARIN INJ 40 MG/0.4 ML SYR SQ SCH (08:57)
[2022-08-23] MEDS: MAGNESIUM OXIDE 400 MG TAB PO SCH (08:58)
[2022-08-23] MEDS: ENALAPRIL MALEATE 10 MG TAB PO SCH (08:58)
[2022-08-23] MEDS: PANTOprazole 40 MG TAB PO SCH (08:58)
[2022-08-23] MEDS: allopurinoL 100 MG TAB PO SCH (08:58)
[2022-08-23] MEDS: CHOLECALCIFEROL 1,000 UNITS 25 MCG TAB PO SCH (08:58)
[2022-08-23] MEDS: ASPIRIN 81 MG ECTAB PO SCH (08:58)
[2022-08-23] MEDS: METOPROLOL SUCC 50MG EXT REL TAB PO SCH (08:59)
--- NOTE | 2022-08-23 12:10 | Discharge Summary ---
Discharge Summary Date of Service August 23, 2022 Notes For Next Care Provider Needs repeat chest xray in 4-6 weeks Should have PFTs as outpatient to test for COPD Sent home with home O2 Needs f/u CBC and B<P in 1 week to ensure thrombocytopenia and hyponatremia resolved Medication Changes From Visit Doxycycline bid x 7 days Albuterol inhaler prn with spacer Guaifenesin DM prn Admission HPI Per Admitting Provider Renuka Jones is a 77-year-old female with a past medical history of peripheral artery disease, GERD, CAD, hypothyroidism, hypercholesterolemia, hypertension, hyperlipidemia, CABG, NSTEMI with atrial sensed ventricular paced heart rhythm who presents with worsening cough and shortness of breath worsening over 7 days patient was referred from her PCP office for hypoxia to 85%. She notes her daughter has has been sick with an upper respiratory illness. Cough x7 days. Cough productive but swallows the sputum and doesn't know the color, what she has seen was clear No fevers. +Chills. No nausea/vomiting/diarrhea Daughter with URI x3 weeks which is slowly improving 'just hung on forever.' NO chest pain or chest pressure +short of breath with exertion, sometimes coughing but not at rest No home o2 requirements Did take morning medications, has not taken statin and not sure if enalapril or metoprolol. No lung problems, no copd or asthma at baseline Hx of pacemaker and open bipass surgery. No chest pain in preceding weeks. Denies issues with fluid/heart failure On aspirin daily, no blood thinners Medical History: Reviewed Medications: Reviewed Surgical History: Reviewed Family history: Reviewed Allergies: Reviewed Social History: No tobacco use. No etoh use. Code Status: Full Code. Surrogate DM would be her Principal Dx & Hospital Course #1 = Principal Diagnosis (1) Right lower lobe pneumonia: This patient is a 77-year-old female who presents with 1 week of worsening TAMAYO and hypoxia and who was found to have a suspected right lower lobe pneumonia on admitting chest x-ray. Her daughter has also been sick with an upper r espiratory infection. Found to be positive for parainfluenza virus Acute hypoxic respiratory failure 2/2 right lower lobe pneumonia on chest [id number] 2 L nasal cannula at rest and 3LNC with exertino on discharge Procalcitonin negative, suspect viral pneumonia from parainfluenza Was given 1 dose of cefepime but will send bruce ewith 7 day course of abx w/ doxycycline for COPD exacerbation Pt with emphysema on CXR and has been told she likely has COPD, no formal PFTs performed in past Here with wheezing, hypoxia--> clinically has COPD and should go home with albuterol prn, doxy, needs PFTs as outpt -Continue supplemental O2 as above -Albuterol inhaler prn for wheezin/cough - guaifenesin DM for cough -continue flutter valve -with mild thrombocytopenia from viral illness-f/u CBC as outpt Much improved, stable for dc to home (2) Hypoxia: As above, second to parainfluenza virus Supplemental O2 Pulmonary toilet (3) Hyponatremia: Sodium 129 on admission, urine osmolality consistent with increased ADH, likely due to hypovolemia from acute illness Was given 2 L normal saline and sodium improved to 136 on day of discharge Follow BMP as outpt ok to restart home HCTZ as she has been on this for years and previous sodium has been normal (4) HTN (hypertension): Blood pressures are mildly elevated since being off HCTZ Continue enalapril, metoprolol -Held HCTZ for hyponatremia but can restart on discharge (5) PAD (peripheral artery disease): f/u with Vascular after discharge as before Continued on aspirin, atorvastatin (6) Status post placement of cardiac pacemaker: Placed for heart block Paced rhythm on telemetry (7) GERD (gastroesophageal reflux disease): Continue Protonix (8) CAD (coronary artery disease), [place] coronary artery: History of CAD s/p bypass, pacemaker placement Pacemaker placed due to presyncope with third-degree heart block 2020, doing well with no syncope since No acute heart failure exacerbation appreciated Continue aspirin, atorvastatin, Toprol, enalapril Troponin is with elevation to 31.8 on admission, peaked at 40 and stabilized- suspect myocardial demand ischemia related to hypoxia and acute illness EKG without acute ischemic changes Clinically without any chest pain both at rest, at time of assessment, and preceding admission Paced rhythm (9) Hypothyroidism: Continue levothyroxine TSH normal at 0.69 in 04/2022 (10) Hypercholesterolemia: Continue statin (11) COPD (chronic obstructive pulmonary disease): as above, needs PFTs as outpt Plan DVT prophylaxis-Lovenox Disposition-dc to home Discharge Exam Constitutional WD/WN, vitals as above Neck trachea midline, no thyromegaly Respiratory normal respiratory effort; not tachypneic Auscultation: + crackles (left and right lower lung rodríguez) and + wheezes; no rhonchi Cardiovascular RRR, no murmur, no edema Chest (Breasts) Chest: normal inspection of chest Gastrointestinal (Abdomen) normal bowel sounds, soft, nontender, no hepatosplenomegaly Musculoskeletal Extremities: extremities normal to inspection; no cyanosis and no clubbing Skin no rashes, warm and dry Neurologic moves all extremities and awake; no focal motor deficits Psychiatric A+Ox3, euthymic affect Lymphatic no lymphedema Updated Medication List Medication Instructions Recorded Confirmed Type cholecalciferol (vitamin D3) 25 1,000 units PO DAILY 11/16/18 08/21/22 History mcg (1,000 unit) capsule aspirin 81 mg tablet,delayed 81 mg PO QAM 06/20/20 08/21/22 History release (Adult Aspirin Regimen) omeprazole 20 mg capsule,delayed 20 mg PO DAILY #90 caps 10/29/21 08/21/22 Rx release atorvastatin 20 mg tablet 20 mg PO QPM #90 tabs 11/14/21 08/21/22 Rx enalapril maleate 20 mg tablet 20 mg PO BID #180 tabs 11/14/21 08/21/22 Rx levothyroxine 75 mcg capsule 75 mcg PO DAILY #90 caps 03/27/22 08/21/22 Rx metoprolol succinate 100 mg 100 mg PO BID #180 tabs 03/27/22 08/21/22 Rx tablet,extended release 24 hr allopurinol 100 mg tablet 100 mg PO DAILY #90 ea 06/02/22 08/21/22 Rx hydrochlorothiazide 25 mg tablet 25 mg PO DAILY #90 tabs 07/27/22 08/21/22 Rx benzonatate 100 mg capsule 100 mg PO TID PRN cough #30 caps 08/17/22 08/21/22 Rx Spacer for Inhaler #1 ea 08/23/22 Rx albuterol sulfate 90 mcg/actuation 2 inh inhalation Q6H PRN shortness 08/23/22 Rx aerosol inhaler of breath or wheezing #8.5 grams doxycycline hyclate 100 mg capsule 100 mg PO BID 7 days #14 caps 08/23/22 Rx Hospital Stay Data Consultations 05/19/23 18:38 ED Decision to Admit Stat Pending Results Patient Have Any Pending Studies at Discharge: Yes Discharge Instructions Given to Patient (Per Discharging Provider) Please finish out a 7 day course of doxycycline as an antibiotic for bronchitis. You can use the albuterol inhaler as needed for cough or wheezing. You will need to stay on oxygen 2L at rest and turn it up to 3L with ambulation. You should have a repeat chest xray in 4-6 weeks to ensure your pneumonia is completely resolved. Total Time Total Time Spent Total Time Spent (In Minutes): 35 min Coding Level of Care Code 72877 INP/OBS DISCH >30 MIN Diagnoses Right lower lobe pneumonia J18.9 Hypoxia R09.02 Hyponatremia E87.1 HTN (hypertension) I10 PAD (peripheral artery disease) I73.9 Status post placement of cardiac pacemaker Z95.0 GERD (gastroesophageal reflux disease) K21.9 CAD (coronary artery disease), [place] coronary artery I25.10 Hypothyroidism E03.9 Hypercholesterolemia E78.00 COPD (chronic obstructive pulmonary disease) J44.9
== END 2022-08-23 13:24 | disposition home or self-care (01) | DRG 193 ==
LOC: ED 17:02 → SUATTDRO 19:04 → EDINP 19:04 → 2S 20:57

== ENCOUNTER 2023-06-14 13:48 | Inpatient (IN) ==
--- NOTE | 2023-06-14 14:15 | Emergency Department Note ---
Impression & Plan Hypoxia, COPD (chronic obstructive pulmonary disease), Hypomagnesemia, Elevated troponin, Leukocytosis ED Provider Note NAME: NAKUL CHRISTINA AGE: 78 SEX: F : 1945 ARRIVES VIA: Ambulance INFORMANT: Patient ED PROVIDER(S): Jelani Bobby MD CHIEF COMPLAINT: Weakness, shortness of breath, poor appetite. PLAN: Disposition: Admit MEDICAL DECISION MAKING: The patient is a pleasant 78-year-old woman with past medical history of COPD, history of complete heart block status post PPM,, hyperlipidemia, CAD, PAD, GERD, hypothyroidism who presents to the emergency department via EMS from her home for evaluation of generalized weakness with lack of appetite and intermittent shortness of breath over the past 2 weeks. Patient denies any chest pain or abdominal pain she will reports ongoing nausea but denies vomiting. She denies diarrhea or constipation. She admits she has had poor oral intake due to lack of appetite. She denies any fevers, cough. She reports she contacted her on-call doctor today due to the concern of having elevated blood pressure. She reports she checks her blood pressure regularly on a daily basis and does not recall what it was yesterday but does not feel it was any thing significant given she did not get concerned until today. She is unclear of which medications she took today as she initially thought she had taken all her morning medications but had yet to take her medications at lunch initially stating her missed enalapril but then she recalls that this is dosed in the evening. Thus, unclear if she did in fact take her morning enalapril. On evaluation the patient is in no acute distress, afebrile blood pressure initially 220/100s and vital signs otherwise stable. O2 saturation was initially 93% on room air however with minimal exertion patient would desaturate to mid 80s and so was placed on 2 L nasal cannula. Patient appears clinically dry. Lungs with intermittent wheeze bilaterally and otherwise clear. EKG is paced without overt acute ischemia. Chest x-ray demonstrates vascular congestion and otherwise note is made of chronic interstitial coarsening. WBC 18.6 K with neutrophil predominance though no left shift. H/H and platelets within normal limits. Chemistry without metabolic acidosis. BUNs/creatinine 21, consistent with patient's clinically dry appearance. Magnesium 1.2 with IV repletion initiated. LFTs are unremarkable. Initial high-sensitivity troponin was 40.8, nonspecific and similar to prior similar elevations in August of last year. Lipase is not elevated. Procalcitonin was not elevated. TSH is normal limits. UA without convincing evidence of infection. Respiratory BioFire was negative. Given the patient's hypoxia normal in setting of hypertensive urgency patient was referred to hospital service for admission and further management. Given the patient's malaise, leukocytosis and hypoxia and chest x-ray with interstitial thickening which per my review appears more pronounced in the right lower lung rodríguez blood cultures were obtained and empiric treatment for CAP was provided with ceftriaxone and doxycycline. Patient additionally treated with Solu-Medrol and DuoNeb for component of bronchospasm. Patient's home dose of enalapril was also provided. Case was discussed with Dr. Lopez and Dr. Mercado, [facility] hospitalist service, who will evaluate the patient for admission. Further management per admitting team. Triage Nursing notes reviewed and agree them. Prior/external medical records reviewed Vital Signs: reviewed Differential diagnosis: Infection, dehydration, metabolic abnormality, hypo/hyperglycemia, electrolyte disturbance, anemia, hypoxia, cardiac sources, intracerebral event, toxicologic, neurologic, as well as other pathologies. ER treatment provided: See below. Diagnostics interpreted by me: ECG: Atrial sensed ventricular paced rhythm, 82 bpm, no ectopy, no overt acute ischemia. Cardiac Monitoring: An order for continuous cardiac monitoring was placed and demonstrated Atrial sensed ventricular paced rhythm, 82 bpm, no ectopy. Laboratory studies: See below Imaging studies: See below Consultation(s): Case was discussed with Dr. Lopez and Dr. Mercado, [facility] hospitalist service, who will evaluate the patient for admission. HPI: The patient is a pleasant 78-year-old woman with past medical history of COPD, history of complete heart block status post PPM,, hyperlipidemia, CAD, PAD, GERD, hypothyroidism who presents to the emergency department via EMS from her home for evaluation of generalized weakness with lack of appetite and intermittent shortness of breath over the past 2 weeks. Patient denies any chest pain or abdominal pain she will reports ongoing nausea but denies vomiting. She denies diarrhea or constipation. She admits she has had poor oral intake due to lack of appetite. She denies any fevers, cough. She reports she contacted her on-call doctor today due to the concern of having elevated blood pressure. She reports she checks her blood pressure regularly on a daily basis and does not recall what it was yesterday but does not feel it was any thing significant given she did not get concerned until today. She is unclear of which medications she took today as she initially thought she had taken all her morning medications but had yet to take her medications at lunch initially stating her missed enalapril but then she recalls that this is dosed in the evening. Thus, unclear if she did in fact take her morning enalapril. ROS: See above HPI for pertinent positives & negatives. A total of 10 systems reviewed and were otherwise negative. VITALS:See Below PHYSICAL EXAMINATION: GENERAL: Awake, alert, fatigued-appearing, in no distress HENT: Normocephalic, atraumatic. Oropharynx with dry mucous membranes and otherwise unremarkable. EYES: Normal conjunctiva. Sclera non-icteric. NECK: Supple. No nuchal rigidity. FROM. No JVD. RESPIRATORY: Intermittent wheeze of bilateral lung rodríguez and otherwise clear to auscultation. CARDIAC: Regular rate, normal rhythm. Extremities warm and well perfused. Pulses equal. ABDOMEN: Soft, non-distended. No tenderness to palpation. No rebound or guarding. No masses. RECTAL: Deferred. MUSCULOSKELETAL: Chest examination reveals no tenderness. The back is symmetrical on inspection without obvious abnormality. There is no CVA tenderness to palpation. No joint edema. LOWER EXTREMITIES: Calves are equal size bilaterally and non-tender. No edema. No discoloration. NEURO: No sensory or motor deficits noted. SKIN: No rash or jaundice noted. Jelani Bobby MD Past Med/Surg History Medical History History of skin cancer excision from face Hx of non-ST elevation myocardial infarction (NSTEMI) ~2014 Pacemaker follows w/ Dr Joaquin, last checked 12/2022 COPD (chronic obstructive pulmonary disease) states rarely needs rescue inhaler PAD (peripheral artery disease) Peripheral neuropathy Thoracic kyphosis GERD (gastroesophageal reflux disease) CAD (coronary artery disease), tolowa dee-ni' coronary artery HTN (hypertension) Hyperlipidemia Aortic stenosis Eczema Gout Hypothyroidism Osteoporosis Radiculopathy Ambulatory dysfunction Surgical History Hx of bilateral cataract extraction Hx of CABG 1997- [facility] Status post placement of cardiac pacemaker 06/21/20 Dr. Robert Lorenzo Hx of knee surgery Family History Mother Alcohol abuse H/O oral cancer Brother Parkinson disease, symptomatic Colon cancer Denies family history of Ovarian cancer Prostate cancer Myocardial infarction Breast cancer Colorectal cancer Social History Smoking Status: Never smoker Tobacco Type: Cigarettes Second Hand Exposure: No; Do You Dip or Chew Tobacco: No; Hx Alcohol Use: No Hx Substance Use: No Preferred Language: Belarusian Communication Ability: Effective Visual Impairment: Limited Hearing Ability: Normal General Road Supervisor Required: No Beliefs That Will Affect Care: None marital status: Current Living Situation: Spouse current occupational status: retired How many Children do You have: 1 Feels Safe at Home: Yes Childhood Exposure to Second-Hand Smoke: Yes Diet: regular caffeine: No during the past year weight has: remained stable Dental Care, Regularly: Yes Physical Activity Frequency: Daily Seatbelt Use: always Sunscreen Use: Yes Assistive Devices: Glasses Allergies Allergies Allergy/AdvReac Type Severity Reaction Status Date / Time hydrocodone AdvReac Intermediate VOMITING Verified 05/03/23 11:51 Home Meds Home Medications Medication Instructions Recorded Confirmed cholecalciferol (vitamin D3) 25 1,000 units PO QAM 11/16/18 06/14/23 mcg (1,000 unit) capsule aspirin 81 mg tablet,delayed 81 mg PO QAM 06/20/20 06/14/23 release (Adult Aspirin Regimen) magnesium oxide 400 mg PO DAILY 12/08/22 06/14/23 acetaminophen 500 mg tablet 500 mg PO QID PRN Pain 04/27/23 06/14/23 hydrochlorothiazide 25 mg tablet 25 mg PO QAM 06/14/23 06/14/23 levothyroxine 75 mcg capsule 75 mcg PO DAILYBB 06/14/23 06/14/23 omeprazole 20 mg capsule,delayed 20 mg PO QAM 06/14/23 06/14/23 release Previous Rx's Medication Instructions Recorded atorvastatin 20 mg tablet 20 mg PO QPM #90 tabs 11/12/22 enalapril maleate 20 mg tablet 20 mg PO BID #180 tabs 11/12/22 Spacer for Inhaler #1 ea 12/10/22 albuterol sulfate 90 mcg/actuation 2 puff inhalation QID PRN 12/10/22 aerosol inhaler shortness of breath or wheezing #8.5 grams metoprolol succinate 100 mg 100 mg PO BID #180 tabs 03/26/23 tablet,extended release 24 hr allopurinol 100 mg tablet 100 mg PO DAILY #90 ea 06/03/23 Results & Data (ED) Vital Signs Vital Signs - 24 hr 06/14/23 13:45 06/14/23 13:59 06/14/23 14:36 Temperature 36.9 C Temperature Source Oral Pulse Rate 77 88 86 Pulse Rate from SpO2 Sensor 86 Respiratory Rate 24 23 Respiratory Effort / Characteristics Non-Labored Spontaneous Respiratory Depth Normal Blood Pressure 223/105 H 215/78 H Blood Pressure Mean 144 123 Pulse Oximetry 93 94 Oxygen Delivery Method Room Air Room Air Oxygen Flow Rate Sepsis Recent Fever Within 48 Hours No Sepsis New/Unexplained Change in Mental Status N/A Sepsis Action Taken by Nursing No Action Required 06/14/23 15:01 06/14/23 15:25 06/14/23 15:30 Temperature Temperature Source Pulse Rate 81 92 H Pulse Rate from SpO2 Sensor 80 92 H Respiratory Rate 19 27 H Respiratory Effort / Characteristics Respiratory Depth Blood Pressure 219/76 H 210/109 H Blood Pressure Mean 123 142 Pulse Oximetry 92 88 L 89 L Oxygen Delivery Method Room Air Room Air Room Air Oxygen Flow Rate Sepsis Recent Fever Within 48 Hours Sepsis New/Unexplained Change in Mental Status Sepsis Action Taken by Nursing 06/14/23 15:36 06/14/23 16:10 Temperature Temperature Source Pulse Rate 86 Pulse Rate from SpO2 Sensor 87 Respiratory Rate 25 H Respiratory Effort / Characteristics Respiratory Depth Blood Pressure 186/65 H Blood Pressure Mean 105 Pulse Oximetry 97 98 Oxygen Delivery Method Nasal Cannula Nasal Cannula Oxygen Flow Rate 2 2 Sepsis Recent Fever Within 48 Hours Sepsis New/Unexplained Change in Mental Status Sepsis Action Taken by Nursing Laboratory Data Attestation: I reviewed the patient's lab results. 06/14/23 13:58 06/14/23 13:58 Lab Results 06/14/23 06/14/23 06/14/23 Range/Units 13:58 14:20 15:15 WBC 18.61 H (4.8-10.8) K/ul RBC 4.65 (4.20-5.40) M/uL Hgb 12.8 (12.0-16.0) g/dl Hct 40.0 (37.0-47.0) % MCV 86.0 (80.0-100.0) fL MCH 27.5 (25.0-34.0) pg MCHC 32.0 (32.0-36.0) g/dL RDW Std Deviation 47.3 H (36.4-46.3) fL RDW Coeff of Chani 15.0 H (11.5-14.5) % Plt Count 226 (130-400) K/uL MPV 10.3 (9.4-12.4) fL Immature Gran % (Auto) 0.4 % Neut % (Auto) 85.0 % Lymph % (Auto) 9.8 % Deuel % (Auto) 4.5 % Eos % (Auto) 0.1 % Baso % (Auto) 0.2 % Neut # (Auto) 15.82 H (1.40-6.50) K/uL Lymph # (Auto) 1.82 (1.20-3.40) K/uL Deuel # (Auto) 0.84 H (0.11-0.59) K/uL Eos # (Auto) 0.01 (0.00-0.50) K/uL Baso # (Auto) 0.04 (0.00-0.20) K/uL Immature Gran # (Auto) 0.08 (0.01-0.20) K/uL PT 10.8 (9.0-12.0) Seconds INR 1.0 (0.9-1.1) Sodium 139 (136-145) mmol/L Potassium 3.8 (3.5-5.1) mmol/L Chloride 100 (98-107) mmol/L Carbon Dioxide 33 H (21-32) mmol/L Anion Gap 6 (3-11) BUN 17 (6-23) mg/dl Creatinine 0.80 (0.6-1.2) mg/dl Est Cr Clr Drug Dosing 53.8 ml/min Est GFR ( Amer) 81.8 ml/min Est GFR (Non-Af Amer) 70.6 ml/min BUN/Creatinine Ratio 21.3 H (10-20) Glucose 106 H (70-99(Fasting)) mg/dl Lactate (0.4-2.0) mmol/L Calcium 9.2 (8.6-10.3) mg/dl Magnesium 1.2 L (1.7-2.4) mg/dl Total Bilirubin 0.7 (0.2-1.0) mg/dl AST 17 (13-39) U/L ALT 7 (7-52) U/L Alkaline Phosphatase 55 (34-104) U/L Troponin I High Sens 40.8 H (0-14) pg/ml Total Protein 7.0 (6.0-8.3) gm/dl Albumin 3.8 (3.4-5.0) gm/dl Globulin 3.2 (2.5-4.0) gm/dl Albumin/Globulin Ratio 1.2 (0.9-2) Lipase 34 (11-82) U/L Procalcitonin 0.07 (0-0.5) ng/ml Urine Color Yellow Urine Appearance Clear (Clear) Urine pH 7.5 (4.5-7.5) Ur Specific Randolph 1.015 (1.000-1.030) Urine Protein 3+ H (Negative) Urine Glucose (UA) Negative (Negative) Urine Ketones Negative (Negative) Urine Blood 1+ H (Negative) Urine Nitrite Negative (Negative) Urine Bilirubin Negative (Negative) Urine Urobilinogen Negative (Negative) Ur Leukocyte Esterase Negative (Negative) Urine WBC (Auto) 1-5 (0-5) /hpf Urine RBC (Auto) 5-10 H (0-4) /hpf U Hyaline Cast (Auto) 1-5 (0-5) /lpf U Epithel Cells (Auto) >30 H (0-5) /lpf Urine Bacteria (Auto) Negative (Negative) Adenovirus (PCR) Not Detected (NotDetected) B. pertussis DNA (PCR) Not Detected (NotDetected) B.parapertussis DNA PCR Not Detected (NotDetected) C. pneumoniae DNA (PCR) Not Detected (NotDetected) Coronavirus OC43 (PCR) Not Detected (NotDetected) Coronavirus HKU1 (PCR) Not Detected (NotDetected) Coronavirus 229E (PCR) Not Detected (NotDetected) SARS-CoV-2 (PCR) Not Detected (NotDetected) Coronavirus NL63 (PCR) Not Detected (NotDetected) Human Metapneumovir PCR Not Detected (NotDetected) Influenza Type A (PCR) Not Detected (NotDetected) Influenza Type B (PCR) Not Detected (NotDetected) M. pneumoniae (PCR) Not Detected (NotDetected) Parainfluenza 1 (PCR) Not Detected (NotDetected) Parainfluenza 2 (PCR) Not Detected (NotDetected) Parainfluenza 3 (PCR) Not Detected (NotDetected) Parainfluenza 4 (PCR) Not Detected (NotDetected) RSV (PCR) Not Detected (NotDetected) Entero/Rhino (PCR) Not Detected (NotDetected) 06/14/23 06/14/23 Range/Units 15:45 16:03 WBC (4.8-10.8) K/ul RBC (4.20-5.40) M/uL Hgb (12.0-16.0) g/dl Hct (37.0-47.0) % MCV (80.0-100.0) fL MCH (25.0-34.0) pg MCHC (32.0-36.0) g/dL RDW Std Deviation (36.4-46.3) fL RDW Coeff of Chani (11.5-14.5) % Plt Count (130-400) K/uL MPV (9.4-12.4) fL Immature Gran % (Auto) % Neut % (Auto) % Lymph % (Auto) % Deuel % (Auto) % Eos % (Auto) % Baso % (Auto) % Neut # (Auto) (1.40-6.50) K/uL Lymph # (Auto) (1.20-3.40) K/uL Deuel # (Auto) (0.11-0.59) K/uL Eos # (Auto) (0.00-0.50) K/uL Baso # (Auto) (0.00-0.20) K/uL Immature Gran # (Auto) (0.01-0.20) K/uL PT (9.0-12.0) Seconds INR (0.9-1.1) Sodium (136-145) mmol/L Potassium (3.5-5.1) mmol/L Chloride (98-107) mmol/L Carbon Dioxide (21-32) mmol/L Anion Gap (3-11) BUN (6-23) mg/dl Creatinine (0.6-1.2) mg/dl Est Cr Clr Drug Dosing ml/min Est GFR ( Amer) ml/min Est GFR (Non-Af Amer) ml/min BUN/Creatinine Ratio (10-20) Glucose (70-99(Fasting)) mg/dl Lactate 1.3 (0.4-2.0) mmol/L Calcium (8.6-10.3) mg/dl Magnesium (1.7-2.4) mg/dl Total Bilirubin (0.2-1.0) mg/dl AST (13-39) U/L ALT (7-52) U/L Alkaline Phosphatase (34-104) U/L Troponin I High Sens 38.9 H (0-14) pg/ml Total Protein (6.0-8.3) gm/dl Albumin (3.4-5.0) gm/dl Globulin (2.5-4.0) gm/dl Albumin/Globulin Ratio (0.9-2) Lipase (11-82) U/L Procalcitonin (0-0.5) ng/ml Urine Color Urine Appearance (Clear) Urine pH (4.5-7.5) Ur Specific Randolph (1.000-1.030) Urine Protein (Negative) Urine Glucose (UA) (Negative) Urine Ketones (Negative) Urine Blood (Negative) Urine Nitrite (Negative) Urine Bilirubin (Negative) Urine Urobilinogen (Negative) Ur Leukocyte Esterase (Negative) Urine WBC (Auto) (0-5) /hpf Urine RBC (Auto) (0-4) /hpf U Hyaline Cast (Auto) (0-5) /lpf U Epithel Cells (Auto) (0-5) /lpf Urine Bacteria (Auto) (Negative) Adenovirus (PCR) (NotDetected) B. pertussis DNA (PCR) (NotDetected) B.parapertussis DNA PCR (NotDetected) C. pneumoniae DNA (PCR) (NotDetected) Coronavirus OC43 (PCR) (NotDetected) Coronavirus HKU1 (PCR) (NotDetected) Coronavirus 229E (PCR) (NotDetected) SARS-CoV-2 (PCR) (NotDetected) Coronavirus NL63 (PCR) (NotDetected) Human Metapneumovir PCR (NotDetected) Influenza Type A (PCR) (NotDetected) Influenza Type B (PCR) (NotDetected) M. pneumoniae (PCR) (NotDetected) Parainfluenza 1 (PCR) (NotDetected) Parainfluenza 2 (PCR) (NotDetected) Parainfluenza 3 (PCR) (NotDetected) Parainfluenza 4 (PCR) (NotDetected) RSV (PCR) (NotDetected) Entero/Rhino (PCR) (NotDetected) Administered Medications Albuterol (Albut/Ipratrop 3mg/0.5mg Neb 3 Ml Vial) 3 ml NEB Q4R [facility]; Protocol Stop: 07/14/23 22:04 Last Admin: 06/14/23 22:31 Dose: 3 ml Documented By: FAIZAN Atorvastatin Calcium (Atorvastatin 20 Mg Tab) 20 mg PO QPM [facility] Stop: 07/14/23 22:04 Last Admin: 06/14/23 23:03 Dose: 20 mg Documented By: JONNIE Enalapril Maleate (Enalapril Maleate 10 Mg Tab) 20 mg PO BID [facility] Stop: 07/14/23 22:04 Last Admin: 06/14/23 23:02 Dose: 20 mg Documented By: JONNIE Enoxaparin Sodium (Enoxaparin Inj 40 Mg/0.4 Ml Syr) 40 mg SQ HS [facility] Stop: 07/14/23 22:04 Last Admin: 06/14/23 23:03 Dose: 40 mg Documented By: JONNIE Azithromycin 500 mg/ Dextrose 255 mls @ 125 mls/hr IV Q24H [facility]; Protocol Stop: 06/19/23 22:59 Last Admin: 06/14/23 23:04 Dose: 125 mls/hr Documented By: JONNEI Metoprolol Succinate (Metoprolol Succ 50mg Ext Rel Tab) 100 mg PO BID [facility] Stop: 07/14/23 22:04 Last Admin: 06/14/23 23:02 Dose: 100 mg Documented By: JONNIE Discontinued Medications Albuterol (Albut/Ipratrop 3mg/0.5mg Neb 3 Ml Vial) 3 ml NEB NOW STA; Protocol Stop: 06/14/23 15:38 Last Admin: 06/14/23 15:42 Dose: 3 ml Documented By: JAILENE Albuterol (Albut/Ipratrop 3mg/0.5mg Neb 3 Ml Vial) Confirm Administered Dose 3 ml .ROUTE .STK-MED ONE Stop: 06/14/23 22:29 Last Admin: 06/14/23 22:31 Dose: Not Given Documented By: FAIZAN Enalapril Maleate (Enalapril Maleate 5 Mg Tab) 20 mg PO NOW STA Stop: 06/14/23 15:40 Last Admin: 06/14/23 16:05 Dose: 20 mg Documented By: JAILENE Hydralazine HCl (Hydralazine Hcl 20 Mg/Ml Vial) 10 mg IV NOW STA Stop: 06/14/23 19:47 Last Admin: 06/14/23 19:54 Dose: Not Given Documented By: TANYA Hydralazine HCl (Hydralazine Hcl 20 Mg/Ml Vial) Confirm Administered Dose 20 mg .ROUTE .STK-MED ONE Stop: 06/14/23 19:49 Last Increment: 06/14/23 19:50 Dose: 10 mg Documented By: TANYA Sodium Chloride (Nss) 500 mls @ 999 mls/hr IV .Q31M STA Stop: 06/14/23 14:25 Last Infusion: 06/14/23 15:33 Dose: Infused Documented By: Admin: 06/14/23 14:21 Dose: 999 mls/hr Documented By: AGUSTO Magnesium Sulfate/Dextrose (Magnesium Sulfate / D5w) 1 gm in 100 mls @ 100 mls/hr IV Q1H [facility] Stop: 06/14/23 17:39 Last Infusion: 06/14/23 18:28 Dose: Infused Documented By: Admin: 06/14/23 17:00 Dose: 100 mls/hr Documented By: Infusion: 06/14/23 17:00 Dose: Infused Documented By: Admin: 06/14/23 16:07 Dose: 100 mls/hr Documented By: JAILENE Ceftriaxone Sodium (Rocephin) 2,000 mg in 50 mls @ 100 mls/hr IV NOW STA Stop: 06/14/23 16:12 Last Infusion: 06/14/23 17:31 Dose: Infused Documented By: Admin: 06/14/23 16:44 Dose: 100 mls/hr Documented By: JAILENE Doxycycline Hyclate 100 mg/ (Dextrose) 100 mls @ 50 mls/hr IV NOW STA Stop: 06/14/23 17:42 Last Infusion: 06/14/23 19:15 Dose: Infused Documented By: Admin: 06/14/23 17:01 Dose: 50 mls/hr Documented By: JAILENE Ioversol (Optiray 320 125ml) 117 ml IV ONCE ONE Stop: 06/14/23 17:56 Last Admin: 06/14/23 17:56 Dose: 117 ml Documented By: IRENE Methylprednisolone (Methylprednisolone 125 Mg/2 Ml Vial) 125 mg IV NOW STA Stop: 06/14/23 15:40 Last Admin: 06/14/23 16:05 Dose: 125 mg Documented By: JAILENE Imaging Data Radiologist's Impression: Chest X-Ray 06/14/23 13:58 XR chest 1V portable HISTORY: 78 years-old Female Chest pain, nonspecific COMPARISON: 12/11/2022 TECHNIQUE: AP view of the chest FINDINGS: Cardiac silhouette is enlarged. Median sternotomy. Left subclavian pacer. Pulmonary vascular congestion. Chronic interstitial coarsening without pneumothorax, pleural effusion or airspace consolidation. The bones appear grossly intact. IMPRESSION: Cardiomegaly with pulmonary vascular congestion. ACT 112: Negative or not required by law. The above report was generated using voice recognition software. It may contain grammatical, syntax or spelling errors. Electronically signed by: John Honeycutt M.D. 06/14/2023 2:22 PM Discharge Plan Visit Data Chief Complaint: Hypertension ED Provider: Jelani Bobby Discharge Problem: Hypoxia, COPD (chronic obstructive pulmonary disease), Hypomagnesemia, Elevated troponin, Leukocytosis Patient Disposition: Admitted As Inpatient Discharge Instructions Interventions: ED Discharge Assessment Last Done: 06/14/23 21:32 Discharge Problem: COPD (chronic obstructive pulmonary disease) Qualifiers: COPD type: COPD with acute exacerbation Qualified Code(s): J44.1 - Chronic obstructive pulmonary disease with (acute) exacerbation Leukocytosis Qualifiers: Leukocytosis type: unspecified Qualified Code(s): D72.829 - Elevated white blood cell count, unspecified
[2023-06-14] MEDS: SODIUM CHLORIDE 0.9% 500 ML IV STA (14:21)
--- NOTE | 2023-06-14 14:23 | XRay Report ---
XR chest 1V portable HISTORY: 78 years-old Female Chest pain, nonspecific COMPARISON: 12/11/2022 TECHNIQUE: AP view of the chest FINDINGS: Cardiac silhouette is enlarged. Median sternotomy. Left subclavian pacer. Pulmonary vascular congesti on. Chronic interstitial coarsening without pneumothorax, pleural effusion or airspace consolidation. The bones appear grossly intact. IMPRESSION: Cardiomegaly with pulmonary vascular congestion. ACT 112: Negative or not required by law. The above report was generated using voice recognition software. It may contain grammatical, syntax o r spelling errors. Electronically signed by: John Honeycutt M.D. 06/14/2023 2:22 PM
[2023-06-14 14:38] LABS: Basophils # (auto) 0.04 K/uL (0.00-0.20); Basophils % (auto) 0.2 %; Eosinophils # (auto) 0.01 K/uL (0.00-0.50); Eosinophils % (auto) 0.1 %; Hemoglobin 12.8 g/dl (12.0-16.0); Immature Granulocytes # (auto) 0.08 K/uL (0.01-0.20); Immature Granulocytes % (auto) 0.4 %; Lymphocytes # (auto) 1.82 K/uL (1.20-3.40); Lymphocytes % (auto) 9.8 %; Mean Corpuscular Hemoglobin 27.5 pg (25.0-34.0); Mean Platelet Volume 10.3 fL (9.4-12.4); Monocytes # (auto) 0.84 K/uL (0.11-0.59); Monocytes % (auto) 4.5 %; Neutrophils # (auto) 15.82 K/uL (1.40-6.50); Platelet Count 226 K/uL (130-400); RDW Standard Deviation 47.3 fL (36.4-46.3); Red Blood Count 4.65 M/uL (4.20-5.40); White Blood Count 18.61 K/ul (4.8-10.8)
[2023-06-14 14:57] LABS: Albumin Globulin Ratio 1.2 (0.9-2); Albumin Level 3.8 gm/dl (3.4-5.0); BUN Creatinine Ratio 21.3 (10-20); Bilirubin,Total 0.7 mg/dl (0.2-1.0); Calcium 9.2 mg/dl (8.6-10.3); Creatinine Clr Calc Pharmacy 53.8 ml/min; Est GFR (African American) 81.8 ml/min; Est GFR (Non-African American) 70.6 ml/min; Globulin 3.2 gm/dl (2.5-4.0); Magnesium 1.2 mg/dl (1.7-2.4); Potassium 3.8 mmol/L (3.5-5.1)
[2023-06-14 15:00] LABS: Prothrombin Time 10.8 Seconds (9.0-12.0)
[2023-06-14 15:03] LABS: Troponin I High Sensitivity 40.8 pg/ml (0-14)
[2023-06-14 15:39] LABS: Adenovirus PCR Not Detected (NotDetected); Bordetella parapertussis PCR Not Detected (NotDetected); Bordetella pertussis PCR Not Detected (NotDetected); Chlamydia pneumoniae PCR Not Detected (NotDetected); Coronavirus 229E PCR Not Detected (NotDetected); Coronavirus CoV-2 (COVID19)PCR Not Detected (NotDetected); Coronavirus HKU1 PCR Not Detected (NotDetected); Coronavirus NL63 PCR Not Detected (NotDetected); Coronavirus OC43PCR Not Detected (NotDetected); Human Metapneumovirus PCR Not Detected (NotDetected); Influenza A PCR Not Detected (NotDetected); Influenza B PCR Not Detected (NotDetected); Mycoplasma pneumoniae PCR Not Detected (NotDetected); Parainfluenza Virus 1 PCR Not Detected (NotDetected); Parainfluenza Virus 2 PCR Not Detected (NotDetected); Parainfluenza Virus 3 PCR Not Detected (NotDetected); Parainfluenza Virus 4 PCR Not Detected (NotDetected); Respiratory Syncytial VirusPCR Not Detected (NotDetected); Rhinovirus/Enterovirus PCR Not Detected (NotDetected)
[2023-06-14] MEDS: ALBUT/IPRATROP 3MG/0.5MG NEB 3 ML VIAL NEB STA (15:42)
[2023-06-14] MEDS: methylPREDNISolone 125 MG/2 ML VIAL IV STA (16:05)
[2023-06-14] MEDS: ENALAPRIL MALEATE 5 MG TAB PO STA (16:05)
[2023-06-14] MEDS: MAGNESIUM SULFATE / D5W 1 GM/100 ML BAG IV SCH (16:07)
[2023-06-14 16:26] LABS: Appearance Urine Clear (Clear); Bacteria Urine Automated Negative (Negative); Bilirubin Urine Negative (Negative); Blood Urine 1+ (Negative); Color Urine Yellow; Epithelial Cell Urine Auto >30 /lpf (0-5); Glucose Urine UA Negative (Negative); Ketones Urine Negative (Negative); Leukocyte Esterase Urine Negative (Negative); Nitrite Urine Negative (Negative); Specific Gravity Urine 1.015 (1.000-1.030); Urobilinogen Urine Negative (Negative); pH Urine 7.5 (4.5-7.5)
[2023-06-14 16:42] LABS: Protein Urine 3+ (Negative)
[2023-06-14] MEDS: cefTRIAXone SODIUM 2,000 MG/50 ML BAG IV STA (16:44)
--- NOTE | 2023-06-14 16:59 | History & Physical Report ---
Date of Service June 14, 2023 Assessment & Plan (1) NSTEMI (non-ST elevated myocardial infarction): Plan: h/o CAD PPM elevated troponin continue asa, statins, metoprolol, repeat trop ECHO cardiology consult (2) Hypoxia: Plan: acute respiratory failure, hypoxia ? COPD exacerbation duonebs obtain BNP ? CTA chest consider steroids if hypoxia does not improve , consider pulm consult (3) History of coronary artery bypass graft: Plan: denies CP, trop is elevated continue home meds obtain ECHO (4) Hypertension: Plan: continue home meds add Hydralazine PRN (5) Cardiac pacemaker: Plan: PPM , paced rhythm (6) Hypomagnesemia: Plan: magnesium 1.2 supplement (7) Pneumonia: Plan: CXR no pneumonia, but WBC is elevated CTA chest IV antibiotics procalcitonin blood cultures ordered (8) Hypercholesterolemia: Plan: continue statins (9) PAD (peripheral artery disease): Plan: continue home meds (10) GERD (gastroesophageal reflux disease): Plan: continue PPI (11) CAD (coronary artery disease), [place] coronary artery: Plan: denies chest pain, but Trop is elevated trend trop obtain ECHO (12) COPD (chronic obstructive pulmonary disease): Plan: hypoxia, due to COPD exacerbation vs pneumonia nebs prn obtain CTA chest History of Present Illness Chief Complaint: shortness of breath, chills , elevated blood pressure Primary Care Provider: Katarzyna Subramanian MD 78 yo female with h/o COPD, HTN , CAD , h/o CABG, PPM, h/o recent pneumonia , h/o respiratory failure with recent pneumonia, weaned off oxygen, presents with elevated blood pressure, chills, her and other family members were recently sick, most likely virl URI, patient had some dry cough, was taking Mucinex at home, her blood pressure was really elevated today, she reports SOB as well, denies taking steroids at home, takes her BP meds , denies chest pain, nausea, vomiting, abdominal pain, diarrhea, BP is elevated in 200s, WBC is 18, she was started on IV Rocephin, IV Doxycycline. Patient is hypoxic in ER, placed on 2l O2. She was given IV fluids in ER as well. IV Magnesium ordered. CXR is cardiomegaly with pulmonary vascular congestion Allergies Allergy/AdvReac Type Severity Reaction Status Date / Time hydrocodone AdvReac Intermediate VOMITING Verified 05/03/23 11:51 Home Medications Medication Instructions Recorded Confirmed Type cholecalciferol (vitamin D3) 25 1,000 units PO QAM 11/16/18 06/14/23 History mcg (1,000 unit) capsule aspirin 81 mg tablet,delayed 81 mg PO QAM 06/20/20 06/14/23 History release (Adult Aspirin Regimen) atorvastatin 20 mg tablet 20 mg PO QPM #90 tabs 11/12/22 06/14/23 Rx enalapril maleate 20 mg tablet 20 mg PO BID #180 tabs 11/12/22 06/14/23 Rx magnesium oxide 400 mg PO DAILY 12/08/22 06/14/23 History Spacer for Inhaler #1 ea 12/10/22 06/14/23 Rx albuterol sulfate 90 mcg/actuation 2 puff inhalation QID PRN 12/10/22 06/14/23 Rx aerosol inhaler shortness of breath or wheezing #8.5 grams metoprolol succinate 100 mg 100 mg PO BID #180 tabs 03/26/23 06/14/23 Rx tablet,extended release 24 hr acetaminophen 500 mg tablet 500 mg PO QID PRN Pain 04/27/23 06/14/23 History allopurinol 100 mg tablet 100 mg PO DAILY #90 ea 06/03/23 06/14/23 Rx hydrochlorothiazide 25 mg tablet 25 mg PO QAM 06/14/23 06/14/23 History levothyroxine 75 mcg capsule 75 mcg PO DAILYBB 06/14/23 06/14/23 History omeprazole 20 mg capsule,delayed 20 mg PO QAM 06/14/23 06/14/23 History release Past Med/Surg History Medical History History of skin cancer excision from face Hx of non-ST elevation myocardial infarction (NSTEMI) ~2014 Pacemaker follows w/ Dr Joaquin, last checked 12/2022 COPD (chronic obstructive pulmonary disease) states rarely needs rescue inhaler PAD (peripheral artery disease) Peripheral neuropathy Thoracic kyphosis GERD (gastroesophageal reflux disease) CAD (coronary artery disease), [place] coronary artery HTN (hypertension) Hyperlipidemia Aortic stenosis Eczema Gout Hypothyroidism Osteoporosis Radiculopathy Ambulatory dysfunction Surgical History Hx of bilateral cataract extraction Hx of CABG [place] Status post placement of cardiac pacemaker 06/21/20 Dr. Robert Lorenzo Hx of knee surgery Family History Mother Alcohol abuse H/O oral cancer Brother Parkinson disease, symptomatic Colon cancer Denies family history of Ovarian cancer Prostate cancer Myocardial infarction Breast cancer Colorectal cancer Social History (Updated 06/14/23 @ 17:02 by Dunia Mercado MD) Smoking Status: Former smoker Tobacco Type: Cigarettes Second Hand Exposure: No; Do You Dip or Chew Tobacco: No; Hx Alcohol Use: No Hx Substance Use: No Preferred Language: Setswana Communication Ability: Effective Visual Impairment: Limited Hearing Ability: Normal Child And Family Counselor Required: No Beliefs That Will Affect Care: None marital status: Current Living Situation: Spouse current occupational status: retired How many Children do You have: 1 Feels Safe at Home: Yes Childhood Exposure to Second-Hand Smoke: Yes Diet: regular caffeine: No during the past year weight has: remained stable Dental Care, Regularly: Yes Physical Activity Frequency: Daily Seatbelt Use: always Sunscreen Use: Yes Assistive Devices: Denture - Upper and Glasses Review of Systems Review of Systems: All systems reviewed & are unremarkable except as noted in HPI & below Constitutional: generalized weakness, chills Eyes: none Ear, Nose, Mouth, Throat: no complaints Respiratory: SOB, dry cough Cardiovascular: Additional Comments: no chest pain Gastrointestinal: no nausea, vomiting, diarhea Genitourinary: denies dysuria Musculoskeletal: generalized weakness Integumentary: denies Neurologic: no focal deficit, no numbness Psychiatric: denies Endocrine: denies polydipsia, polyuria Physical Exam Physical Exam: head is atraumatic, normocephalic neck is supple, no JVD lungs decreased breath sounds b/l , no wheezing heart S1S2 regular, no murmurs abdomen soft, NT, ND, BS present extremities no clubbing, no cyanosis neuro alert, awake, oriented times 3 , no focal deficit Results & Data Results & Data Vital Signs (Past 12 Hours) Vital Signs Temp Pulse Resp BP Pulse Ox O2 Del Method O2 Flow Rate 06/14/23 15:36 97 Nasal Cannula 2 06/14/23 15:30 92 H 27 H 210/109 H 89 L Room Air 06/14/23 15:25 88 L Room Air 06/14/23 15:01 81 19 219/76 H 92 Room Air 06/14/23 14:36 86 23 215/78 H 94 Room Air 06/14/23 13:59 88 06/14/23 13:45 36.9 C 77 24 223/105 H 93 Room Air Laboratory Results Abnormal lab results 06/14/23 06/14/23 06/14/23 Range/Units 13:58 15:15 15:45 WBC 18.61 H (4.8-10.8) K/ul RDW Std Deviation 47.3 H (36.4-46.3) fL RDW Coeff of Chani 15.0 H (11.5-14.5) % Neut # (Auto) 15.82 H (1.40-6.50) K/uL Ransom # (Auto) 0.84 H (0.11-0.59) K/uL Carbon Dioxide 33 H (21-32) mmol/L BUN/Creatinine Ratio 21.3 H (10-20) Glucose 106 H (70-99(Fasting)) mg/dl Magnesium 1.2 L (1.7-2.4) mg/dl Troponin I High Sens 40.8 H 38.9 H (0-14) pg/ml Urine Protein 3+ H (Negative) Urine Blood 1+ H (Negative) Urine RBC (Auto) 5-10 H (0-4) /hpf U Epithel Cells (Auto) >30 H (0-5) /lpf Diagnostic Findings Chest X-Ray 06/14/23 13:58 XR chest 1V portable HISTORY: 78 years-old Female Chest pain, nonspecific COMPARISON: 12/11/2022 TECHNIQUE: AP view of the chest FINDINGS: Cardiac silhouette is enlarged. Median sternotomy. Left subclavian pacer. Pulmonary vascular congestion. Chronic interstitial coarsening without pneumothorax, pleural effusion or airspace consolidation. The bones appear grossly intact. IMPRESSION: Cardiomegaly with pulmonary vascular congestion. ACT 112: Negative or not required by law. The above report was generated using voice recognition software. It may contain grammatical, syntax or spelling errors. Electronically signed by: John Honeycutt M.D. 06/14/2023 2:22 PM Medications Administered Current Inpatient Medications Magnesium Sulfate/Dextrose (Magnesium Sulfate / D5w) 1 gm in 100 mls @ 100 mls/hr IV Q1H SALVATORE Stop: 06/14/23 17:39 Last Admin: 06/14/23 16:07 Dose: 100 mls/hr Doxycycline Hyclate 100 mg/ (Dextrose) 100 mls @ 50 mls/hr IV NOW STA Stop: 06/14/23 17:42 ECG Additional Comments: paced rhythm Code Status & VTE Plan VTE Prophylaxis Plan VTE Prophylaxis will be ordered: Yes PG Care Time/CCT Total # of Minutes Spent Total Time Spent with Patient: Total time spent is greater than 50% in coordination of care (as documented) at patient's floor/unit and/or counseling patient: Coding Level of Care Code 32960 INT INP/OBS CARE 3/75MIN Diagnoses NSTEMI (non-ST elevated myocardial infarction) I21.4 Hypoxia R09.02 History of coronary artery bypass graft Z95.1 Hypertension I10 Cardiac pacemaker Z95.0 Hypomagnesemia E83.42 Pneumonia J18.9 Hypercholesterolemia E78.00 PAD (peripheral artery disease) I73.9 GERD (gastroesophageal reflux disease) K21.9 CAD (coronary artery disease), [place] coronary artery I25.10 COPD (chronic obstructive pulmonary disease) J44.9
[2023-06-14] MEDS: DOXYCYCLINE HYCLATE 100 MG in DEXTROSE 5% MINI-B 100 ML IV STA (17:01)
[2023-06-14] MEDS: OPTIRAY 320 125ml IV ONE (17:56)
--- NOTE | 2023-06-14 18:19 | CT Scan Report ---
CT ANGIOGRAPHY OF THE CHEST CLINICAL HISTORY: Dyspnea. COMPARISON STUDY: Chest CT June 19, 2014. Chest radiograph performed earlier today. TECHNIQUE: Helical axial images of the chest were obtained. Sagittal and coronal reconstructions were viewed as well as maximal intensity projections. Automated exposure control was utilized for the hira dy. A dose lowering technique was utilized adhering to the principles of ALARA. FINDINGS: No pulmonary emboli are identified. There is no thoracic aortic dissection. Mild cardiomega ly is noted. No pericardial effusion is present. There is no thoracic lymphadenopathy. Dual-lead left subclavian pacer and median sternotomy wires are place. No pneumothorax or pleural effusion is prese nt. Upper lobe predominant emphysema is noted. There is no consolidation to suggest pneumonia. 1.3 cm subpleural right apical opacity on image 37 of 237 probably reflects scarring. Central airways are p atent. There is an old L1 compression fracture. IMPRESSION: 1. No pulmonary emboli identified. 2. No acute intrathoracic findings. 3. Emphysema. 4. 1.3 cm subpleural right apical opacity. This likely reflects scarring. However, a follow-up chest CT in 6 months is recommended to ensure stability and exclude a pulmonary nodule. ACT 112: Negative or not required by law. Electronically signed by: Skyler Vee M.D. 06/14/2023 6:18 PM
[2023-06-14] MEDS: hydrALAZINE HCL 20 MG/ML VIAL ONE (19:50)
[2023-06-14] MEDS: hydrALAZINE HCL 20 MG/ML VIAL IV STA (19:54)
[2023-06-14] MEDS ORDERED: POLYETHYLENE (MIRALAX) 17 GM PACK PO PRN (22:05)
[2023-06-14] MEDS ORDERED: hydrALAZINE HCL 20 MG/ML VIAL IV PRN (22:05)
[2023-06-14] MEDS ORDERED: ONDANSETRON INJ 2 MG/ML 2 ML VIAL IV PRN (22:05)
[2023-06-14] MEDS ORDERED: MAGNESIUM HYDROXIDE SUSP 30 ML UDC PO PRN (22:05)
[2023-06-14] MEDS: ALBUT/IPRATROP 3MG/0.5MG NEB 3 ML VIAL NEB SCH (22:31)
[2023-06-14] MEDS: ALBUT/IPRATROP 3MG/0.5MG NEB 3 ML VIAL ONE (22:31)
[2023-06-14] MEDS: METOPROLOL SUCC 50MG EXT REL TAB PO SCH (23:02)
[2023-06-14] MEDS: ENALAPRIL MALEATE 10 MG TAB PO SCH (23:02)
[2023-06-14] MEDS: ENOXAPARIN INJ 40 MG/0.4 ML SYR SQ SCH (23:03)
[2023-06-14] MEDS: ATORVASTATIN 20 MG TAB PO SCH (23:03)
[2023-06-14] MEDS: AZITHROMYCIN 500 MG in DEXTROSE 5% 250 ML IV SCH (23:04)
[2023-06-15] MEDS: ACETAMINOPHEN 500 MG TAB PO PRN (01:06)
[2023-06-15] MEDS: LEVOTHYROXINE SODIUM 75 MCG TABLET PO SCH (05:40)
[2023-06-15 06:29] LABS: Mean Corpuscular Hgb Conc 31.4 g/dL (32.0-36.0); Mean Platelet Volume 10.3 fL (9.4-12.4); Platelet Count 173 K/uL (130-400); RDW Standard Deviation 46.9 fL (36.4-46.3); Red Blood Count 4.07 M/uL (4.20-5.40); White Blood Count 8.46 K/ul (4.8-10.8)
[2023-06-15 06:37] LABS: Albumin Globulin Ratio 1.1 (0.9-2); Albumin Level 3.2 gm/dl (3.4-5.0); BUN Creatinine Ratio 24.3 (10-20); Bilirubin,Total 0.4 mg/dl (0.2-1.0); Calcium 8.7 mg/dl (8.6-10.3); Creatinine Clr Calc Pharmacy 57.3 ml/min; Est GFR (African American) 89.9 ml/min; Est GFR (Non-African American) 77.6 ml/min; Globulin 2.9 gm/dl (2.5-4.0); Magnesium 1.6 mg/dl (1.7-2.4); Potassium 3.9 mmol/L (3.5-5.1); Total Protein 6.1 gm/dl (6.0-8.3)
[2023-06-15 06:44] LABS: Troponin I High Sensitivity 31.5 pg/ml (0-14)
[2023-06-15] MEDS: cefTRIAXone SODIUM 2,000 MG in DEXTROSE 5% 50 ML IV SCH (09:13)
[2023-06-15] MEDS: MAGNESIUM OXIDE 400 MG TAB PO SCH (09:13)
[2023-06-15] MEDS: PANTOprazole 40 MG TAB PO SCH (09:13)
[2023-06-15] MEDS: CHOLECALCIFEROL 25 MCG (1000 UNITS) TAB PO SCH (09:13)
[2023-06-15] MEDS: allopurinoL 100 MG TAB PO SCH (09:16)
[2023-06-15] MEDS: ASPIRIN 81 MG ECTAB PO SCH (09:16)
--- NOTE | 2023-06-15 09:55 | Cardiology Consultation ---
Date of Consultation June 15, 2023 Assessment & Plan (1) Elevated troponin: -mild elevation likely secondary to a supply demand mismatch from her hypertensive urgency on presentation. -she reports no angina pectoris. -no evidence of an acute coronary syndrome. (2) Hypertension: -agree with addition of amlodipine. (3) CAD (coronary artery disease), [place] coronary artery: -s/p GORDON to the LAD in February 1999. -quiescent on medical management. (4) Hypercholesterolemia: -continue atorvastatin. (5) Status post placement of cardiac pacemaker: -normal function on home interrogation, May 08, 2013. History of Present Illness Attending Physician: Dunia Mercado MD History of Present Illness Mrs. Jones is a 78-year-old female admitted yesterday with a hypertensive urgency. This consultation was ordered to assist in her cardiac management. Of note, the patient is well known to me from the outpatient setting. The patient was in her usual state of health until approximately 2 weeks prior t o presentation when she began to note significant weakness and poor appetite. She also noted some exertional dyspnea on the day of presentation. Her blood pressure was elevated home, however, she feels she may have forgotten her antihypertensive medications. On arrival here yesterday, patient was significantly hypertensive with a blood pressure of 220/100. Her high sensitivity troponin was mildly elevated at 40.8. The patient is active on a daily basis caring for her home and property. She has not experienced any recent exertional angina pectoris. She further denies syncope, presyncope, PND, orthopnea, palpitations, lower extremity edema, and claudication. The patient has longstanding history of coronary artery disease. She suffered an anteroapical ME back in February of 1998. She had a GORDON to the LAD following that event. She has done well from cardiac perspective since that time. She did have a permanent dual-chamber pacemaker placed back in June 2017 because of high-grade AV block. She also carries a history of cerebrovascular disease having 50-69% stenoses in the internal carotid arteries bilaterally ultrasound, however, CT angiogram of the neck showed no significant disease back in June 2020. Currently, patient is resting comfortably in bed without complaints. Past medical and surgical history 1. Coronary artery disease-see above 2. CABG x1-February 1998, see above 3. DDD [id number] AV block, June 2017 4. Hypertension 4. Hypercholesterolemia 5. Cerebrovascular disease-see above 6. Hyperglycemia 7. Hypothyroidism 8. Gout 9. Eczema 10. GERD 11. Osteoporosis Social history and lives with her No tobacco Rare alcohol Family history Noncontributory Review systems A 10 review systems was negative except for that described above. Allergies Allergy/AdvReac Type Severity Reaction Status Date / Time hydrocodone AdvReac Intermediate VOMITING Verified 05/03/23 11:51 Home Medications Medication Instructions Recorded Confirmed Type cholecalciferol (vitamin D3) 25 1,000 units PO QAM 11/16/18 06/14/23 History mcg (1,000 unit) capsule aspirin 81 mg tablet,delayed 81 mg PO QAM 06/20/20 06/14/23 History release (Adult Aspirin Regimen) atorvastatin 20 mg tablet 20 mg PO QPM #90 tabs 11/12/22 06/14/23 Rx enalapril maleate 20 mg tablet 20 mg PO BID #180 tabs 11/12/22 06/14/23 Rx magnesium oxide 400 mg PO DAILY 12/08/22 06/14/23 History Spacer for Inhaler #1 ea 12/10/22 06/14/23 Rx albuterol sulfate 90 mcg/actuation 2 puff inhalation QID PRN 12/10/22 06/14/23 Rx aerosol inhaler shortness of breath or wheezing #8.5 grams metoprolol succinate 100 mg 100 mg PO BID #180 tabs 03/26/23 06/14/23 Rx tablet,extended release 24 hr acetaminophen 500 mg tablet 500 mg PO QID PRN Pain 04/27/23 06/14/23 History allopurinol 100 mg tablet 100 mg PO DAILY #90 ea 06/03/23 06/14/23 Rx hydrochlorothiazide 25 mg tablet 25 mg PO QAM 06/14/23 06/14/23 History levothyroxine 75 mcg capsule 75 mcg PO DAILYBB 06/14/23 06/14/23 History omeprazole 20 mg capsule,delayed 20 mg PO QAM 06/14/23 06/14/23 History release Patient History Medical History History of skin cancer excision from face Hx of non-ST elevation myocardial infarction (NSTEMI) ~2014 Pacemaker follows w/ Dr Joaquin, last checked 12/2022 COPD (chronic obstructive pulmonary disease) states rarely needs rescue inhaler PAD (peripheral artery disease) Peripheral neuropathy Thoracic kyphosis GERD (gastroesophageal reflux disease) CAD (coronary artery disease), [place] coronary artery HTN (hypertension) Hyperlipidemia Aortic stenosis Eczema Gout Hypothyroidism Osteoporosis Radiculopathy Ambulatory dysfunction Surgical History Hx of bilateral cataract extraction Hx of CABG 1997- [place] Status post placement of cardiac pacemaker 06/21/20 Dr. 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 HEENT exam is negative. Neck is supple with full carotid upstrokes. Bilateral carotid bruits. Pacemaker wire noted in the right neck. No jugular venous distention. Cardiovascular exam reveals a regular rhythm with a 2/6 basal systolic ejection murmur. Lungs are clear without rales, rhonchi or wheeze. Abdomen is soft without bruits. Extremities reveal intact radial artery pulses bilaterally. There is trace pretibial edema noted. Results & Data Vital Signs (Past 12 Hours) Vital Signs Temp Pulse Resp BP BP Pulse Ox Pulse Ox 06/15/23 09:17 102 H 182/72 H 06/15/23 07:24 62 18 96 06/15/23 07:17 37.0 C 70 18 193/63 H 95 06/15/23 03:41 36.3 C L 64 16 167/66 H 96 06/15/23 02:28 67 18 94 06/15/23 00:55 68 158/68 H 06/14/23 22:31 79 18 97 06/14/23 22:10 06/14/23 22:05 92 06/14/23 22:05 36.9 C 78 20 185/80 H 92 06/14/23 21:50 36.9 C 97 H 18 185/80 H 92 O2 Del Method O2 Del Method O2 Flow Rate O2 Flow Rate 06/15/23 09:17 06/15/23 07:24 Nasal Cannula 2 06/15/23 07:17 Nasal Cannula 2 06/15/23 03:41 Nasal Cannula 2 06/15/23 02:28 Nasal Cannula 2 06/15/23 00:55 06/14/23 22:31 Nasal Cannula 2 06/14/23 22:10 Nasal Cannula 2 06/14/23 22:05 Nasal Cannula 2 06/14/23 22:05 Nasal Cannula 2 06/14/23 21:50 Nasal Cannula 2 Laboratory Results CBC notes hemoglobin 11.0, hematocrit 35.0, white count 8.5, and platelet count [id number]. Electrolytes note a sodium of 135, potassium 3.9, chloride 102, bicarb 27, BUN 18, creatinine 0.74. Initial high sensitivity troponin was 40.8 with follow-up values of 38.9, 41.4, 31.5, and 33.5. Diagnostic Findings ECG notes atrial sensing and ventricular pacing. Chest x-ray shows cardiomegaly but no acute disease. PG Care Time/CCT Total # of Minutes Spent Total Time Spent with Patient: Total time spent is greater than 50% in coordination of care (as documented) at patient's floor/unit and/or counseling patient: Coding Level of Care Code 70518 INT INP/OBS CARE 3/75MIN Diagnoses Elevated troponin R79.89 Hypertension I10 CAD (coronary artery disease), [place] coronary artery I25.10 Hypercholesterolemia E78.00 Status post placement of cardiac pacemaker Z95.0
[2023-06-15] MEDS: amLODIPine BESYLATE 5 MG TAB PO ONE (10:11)
[2023-06-15] MEDS: dilTIAZem HCl 5 MG/ML 5 ML VIAL IV STA (12:46)
--- NOTE | 2023-06-15 13:39 | Hospitalist Progress Note ---
Date of Service June 15, 2023 Assessment & Plan (1) Hypoxia: Plan: acute respiratory failure, hypoxia de to COPD exacerbation resolved , weaned off oxygen CTA chest no PE , no pneumonia transition to po antibiotics (2) Hypertension: Plan: continue home meds add Hydralazine PRN (3) Cardiac pacemaker: Plan: PPM , paced rhythm tachycardia due to duonebs stop duonebs IV Cardizem (4) Hypomagnesemia: Plan: magnesium 1.2 supplement monitor BMP (5) Hypercholesterolemia: Plan: continue statins (6) PAD (peripheral artery disease): Plan: continue home meds (7) GERD (gastroesophageal reflux disease): Plan: continue PPI (8) CAD (coronary artery disease), [place] coronary artery: Plan: denies chest pain, but Trop is elevated , suspect demand ischemia due to HTN, respiratory failure trend trop obtain ECHO continue home meds consult child's nurse (9) COPD (chronic obstructive pulmonary disease): Plan: Emphysema on CTA chest received steroids in ER nebs PRN weaned off oxygen (10) Leukocytosis: Plan: no pneumonia on CTA chest transition to po antibiotics (11) Elevated troponin: Plan: suspect demand ischemia due to HTN, respiratory failure, denies CP, EKG paced rhythm ECHO cardiology consult Admission and Anticipated Discharge Date Admission Date: June 14, 2023 Subjective tachycardic, less SOB , off oxygen Review of Systems Constitutional: generalized weakness, chills Eyes: none Ear, Nose, Mouth, Throat: no complaints Respiratory: SOB, dry cough Cardiovascular: Additional Comments: no chest pain Gastrointestinal: no nausea, vomiting, diarhea Genitourinary: denies dysuria Musculoskeletal: generalized weakness Integumentary: denies Neurologic: no focal deficit, no numbness Psychiatric: denies Endocrine: denies polydipsia, polyuria Physical Exam Physical Exam: head is atraumatic, normocephalic neck is supple, no JVD lungs decreased breath sounds b/l , no wheezing heart tachycardic , no murmurs abdomen soft, NT, ND, BS present extremities no clubbing, no cyanosis neuro alert, awake, oriented times 3 , no focal deficit Results & Data Results & Data Vital Signs (Past 12 Hours) Vital Signs Temp Pulse Resp BP BP Pulse Ox O2 Del Method 06/15/23 12:11 121 H 18 156/73 H 91 Room Air 03/12/24 11:10 66 18 96 Nasal Cannula 03/12/24 11:02 36.9 C 64 18 159/65 H 96 Nasal Cannula 06/15/23 09:17 102 H 182/72 H 06/15/23 08:00 Nasal Cannula 06/15/23 07:24 62 18 96 Nasal Cannula 06/15/23 07:17 37.0 C 70 18 193/63 H 95 Nasal Cannula 06/15/23 03:41 36.3 C L 64 16 167/66 H 96 Nasal Cannula 06/15/23 02:28 67 18 94 Nasal Cannula O2 Flow Rate 06/15/23 12:11 06/15/23 11:10 2 06/15/23 11:02 2 06/15/23 09:17 06/15/23 08:00 2 06/15/23 07:24 2 06/15/23 07:17 2 06/15/23 03:41 2 06/15/23 02:28 2 PG Care Time/CCT Total # of Minutes Spent Total Time Spent with Patient: Total time spent is greater than 50% in coordination of care (as documented) at patient's floor/unit and/or counseling patient: Coding Level of Care Code 10549 SUB INP/OBS CARE 2/35MIN Diagnoses Hypoxia R09.02 Hypertension I10 Cardiac pacemaker Z95.0 Hypomagnesemia E83.42 Hypercholesterolemia E78.00 PAD (peripheral artery disease) I73.9 GERD (gastroesophageal reflux disease) K21.9 CAD (coronary artery disease), [place] coronary artery I25.10 COPD (chronic obstructive pulmonary disease) J44.9 Leukocytosis D72.829 Leukocytosis type: unspecified Elevated troponin R79.89 (10) Leukocytosis Leukocytosis type: unspecified Qualified Code(s): D72.829 - Elevated white blood cell count, unspecified
--- NOTE | 2023-06-15 15:24 | XCELERA ---
[id number]
--- NOTE | 2023-06-16 05:48 | Electrocardiogram Report ---
Test Reason : Blood Pressure : / mmHG Vent. Rate : 082 BPM Atrial Rate : 082 BPM P-R Int : 206 ms QRS Dur : 158 ms QT Int : 440 ms P-R-T Axes : 087 -85 089 degrees QTc Int : 514 ms Atrial-sensed ventricular-paced rhythm Abnormal ECG When compared with ECG of 21-AUG-2022 17:26, Vent. rate has increased BY 12 BPM Confirmed by Mariusz Allen ([id number]) on 06/16/2023 5:48:17 AM Referred By: Confirmed By:Mariusz Allen
[2023-06-16 08:20] LABS: Hematocrit (blood only) 35.7 % (37.0-47.0); Hemoglobin 11.6 g/dl (12.0-16.0); Mean Corpuscular Hemoglobin 27.6 pg (25.0-34.0); Mean Corpuscular Hgb Conc 32.5 g/dL (32.0-36.0); Mean Corpuscular Volume 84.8 fL (80.0-100.0); Mean Platelet Volume 10.4 fL (9.4-12.4); Platelet Count 219 K/uL (130-400); RDW Coefficient of Variation 15.2 % (11.5-14.5); RDW Standard Deviation 46.6 fL (36.4-46.3); Red Blood Count 4.21 M/uL (4.20-5.40); White Blood Count 17.05 K/ul (4.8-10.8)
[2023-06-16 08:31] LABS: Albumin Globulin Ratio 1.2 (0.9-2); Albumin Level 3.5 gm/dl (3.4-5.0); BUN Creatinine Ratio 28.9 (10-20); Bilirubin,Total 0.7 mg/dl (0.2-1.0); Calcium 8.9 mg/dl (8.6-10.3); Creatinine Clr Calc Pharmacy 43.9 ml/min; Est GFR (African American) 64.8 ml/min; Est GFR (Non-African American) 55.9 ml/min; Globulin 2.9 gm/dl (2.5-4.0); Magnesium 1.6 mg/dl (1.7-2.4); Potassium 3.8 mmol/L (3.5-5.1); Total Protein 6.4 gm/dl (6.0-8.3)
[2023-06-16] MEDS: amLODIPine BESYLATE 5 MG TAB PO SCH (10:58)
[2023-06-16] MEDS: MAGNESIUM SULFATE / D5W 1 GM/100 ML BAG IV ONE (11:49)
--- NOTE | 2023-06-16 13:17 | Discharge Summary ---
Date of Service June 16, 2023 Admission HPI Per Admitting Provider 78 yo female with h/o COPD, HTN , CAD , h/o CABG, PPM, h/o recent pneumonia , h/o respiratory failure with recent pneumonia, weaned off oxygen, presents with elevated blood pressure, chills, her and other family members were recently sick, most likely virl URI, patient had some dry cough, was taking Mucinex at home, her blood pressure was really elevated today, she reports SOB as well, denies taking steroids at home, takes her BP meds , denies chest pain, nausea, vomiting, abdominal pain, diarrhea, BP is elevated in 200s, WBC is 18, she was started on IV Rocephin, IV Doxycycline. Patient is hypoxic in ER, placed on 2l O2. She was given IV fluids in ER as well. IV Magnesium ordered. CXR is cardiomegaly with pulmonary vascular congestion , CTA chest no PE, emphysema, no pneumonia Principal Diagnosis acute respiratory failure, hypoxia, COPD exacerbation Discharge Exam head atraumatic, normocephalic neck supple lungs decreased breath sounds b/l heart S1S2 regular abdomen soft, NT, ND, BS extremities no edema, no cyanosis Discharge Data Allergies Allergy/AdvReac Type Severity Reaction Status Date / Time hydrocodone AdvReac Intermediate VOMITING Verified 05/03/23 11:51 Consultations 06/14/23 15:51 ED Decision to Admit Stat 06/15/23 09:01 Consult Cardiology Routine Ordered Studies 06/14/23 16:58 CTA chest w con [CT angio chest w con] Stat Hospital Course (1) Leukocytosis: No signs of infection, transition to p.o. antibiotic (2) Elevated troponin: Most likely demand ischemia due to hypertension and acute respiratory failure, no further workup as per cardiology (3) Hypomagnesemia: Supplemental (4) COPD (chronic obstructive pulmonary disease): Acute respiratory failure due to COPD exacerbation resolved, nebs as needed (5) Hypoxia: Resolved Plan Patient admitted to the hospital for acute respiratory failure, hypoxia, COPD exacerbation, possible pneumonia, hypertensive emergency , CT chest no evidence of pneumonia or PE, she had elevated troponin, most likely due to demand ischemia, due to to acute respiratory failure, hypertension, her blood pressure is better control, she denies any chest pain, she has been off oxygen, no fever, amlodipine started for better blood pressure control, she was seen by soap chipper, echo performed, EF 55 to 60%, patient was discussed with soap chipper, no further workup needed, she is stable for discharge home. Total Time Total Time Spent Total Time Spent (In Minutes): 35 Discharge Plan Discharge Items Patient Disposition: Home - Self-Care Reason For Visit: PNEUMONIA Discharge Diagnosis: copd exacerbation Activity: Resume your previous activity Non-emergency contact: Primary Care Provider Call non-emergency contact if: your symptoms worsen and you have a fever Follow-up/Referrals: Katarzyna Subramanian MD [Primary Care Provider] - Diet: Heart Healthy Addtl Attending Provider Instructions: Follow-up with your primary care doctor in 7 days Pending Studies at Discharge: No Stand-Alone Forms: ServiceNow, Smoking Cessation Medications and DC Order Prescriptions: New cefuroxime axetil 500 mg tablet 500 mg PO BID 5 Days Qty: 10 0RF amlodipine [Norvasc] 5 mg Tablet 10 mg PO QAM Qty: 30 0RF Continued enalapril maleate 20 mg tablet 20 mg PO BID Qty: 180 3RF atorvastatin 20 mg tablet 20 mg PO QPM Qty: 90 3RF metoprolol succinate 100 mg tablet extended release 24 hr 100 mg PO BID Qty: 180 1RF allopurinol 100 mg tablet 100 mg PO DAILY Qty: 90 1RF cholecalciferol (vitamin D3) 1,000 unit capsule 1,000 units PO QAM albuterol sulfate 90 mcg/actuation HFA aerosol inhaler 2 puff inhalation QID PRN (Reason: shortness of breath or wheezing) Qty: 8.5 0RF (DME) Spacer for Inhaler Misc See Rx Instructions .ROUTE .MEDSUPPLY Qty: 1 0RF Rx Instructions: As directed magnesium oxide 400 mg magnesium capsule 400 mg PO DAILY aspirin [Adult Aspirin Regimen] 81 mg tablet,delayed release (DR/EC) 81 mg PO QAM acetaminophen 500 mg Tablet 500 mg PO QID PRN (Reason: Pain) levothyroxine 75 mcg capsule 75 mcg PO DAILYBB Rx Instructions: PER EXT MED HX omeprazole 20 mg capsule,delayed release(DR/EC) 20 mg PO QAM hydrochlorothiazide 25 mg tablet 25 mg PO QAM Discharge Orders: Discharge Order (Routine); Ordered 06/16/23 Ordered By: Dunia Mercado Admission Data Admit Date/Time: 06/14/23 16:28 Attending Provider: Dunia Mercado Admit Provider: Dunia Mercado Primary Care Provider: Katarzyna Subramanian Other Providers: Krissy Lopez; Sorin De León; Hira Miguel; Patrice Joaquin; Jose Ba; Robert Lorenzo; Bruce Altamirano Jr; Mariusz Allen; Delmy Wadsworth; Olga Lidia Trejo; Curly Cooley; Curly Bush; Saeid Hall; Tanvi Subramanian; Ginny Abad; Nadir Callaway; Chava Mi; William Lima Coding Level of Care Code 41952 INP/OBS DISCH >30 MIN Diagnoses Leukocytosis D72.829 Leukocytosis type: unspecified Elevated troponin R79.89 Hypomagnesemia E83.42 COPD (chronic obstructive pulmonary disease) J44.1 COPD type: COPD with acute exacerbation Hypoxia R09.02
--- NOTE | 2023-06-18 05:38 | Electrocardiogram Report ---
Test Reason : Blood Pressure : / mmHG Vent. Rate : 121 BPM Atrial Rate : 121 BPM P-R Int : 000 ms QRS Dur : 174 ms QT Int : 392 ms P-R-T Axes : 037 -74 136 degrees QTc Int : 556 ms Ventricular-paced rhythm Abnormal ECG When compared with ECG of 14-JUN-2023 13:57, Vent. rate has increased BY 39 BPM Confirmed by Mariusz Allen ([id number]) on 06/18/2023 5:38:46 AM Referred By: REFERRED SELF Confirmed By:Mariusz Allen
== END 2023-06-16 15:26 | disposition home or self-care (01) | DRG 190 ==
LOC: SUATTDRO → ED 13:48 → 4W 16:28

== ENCOUNTER 2024-05-10 09:24 | Inpatient (IN) ==
--- NOTE | 2024-05-10 09:42 | Emergency Department Note ---
Impression & Plan Acute and chronic respiratory failure with hypoxia, Shortness of breath, Elevated troponin, Influenza A ED Provider Note NAME: NAKUL CHRISTINA AGE: 79 SEX: F : 1945 ARRIVES VIA: Ambulance INFORMANT: Patient ED PROVIDER(S): Parminder Nair DO CHIEF COMPLAINT: Shortness of breath HPI: Patient is a 79-year-old female who presents to the ER with a past medical history of COPD, carotid atherosclerosis, shingles, hypoxia, PAD, CAD who presents to the ER for shortness of breath. Patient notes that symptoms started several days ago. Everybody in her family has been sick with same symptoms. Patient admits to cough and congestion. No belly pain. No nausea vomiting or diarrhea. No dysuria urgency or frequency. No other exacerbating or remitting factors. ADDITIONAL HISTORY OBTAINED: Per HPI Chronic Medical/Social Conditions Affecting Care: Per HPI PAST MEDICAL HISTORY:See Below PAST SURGICAL HISTORY:See Below FAMILY HISTORY:See Below SOCIAL HISTORY:See Below HOME MEDICATIONS:See Below ALLERGIES:See Below VITALS:See Below PHYSICAL EXAMINATION: GENERAL: Sitting up in bed, alert, moderate distress on nasal cannula EYE EXAM: normal conjunctiva. PERRL and EOM's grossly intact. OROPHARYNX: no exudate, no erythema, lips, buccal mucosa, and tongue normal and mucous membranes are moist NECK: supple, no nuchal rigidity, no adenopathy, non-tender LUNGS: Mild wheezing bilaterally. Normal chest wall mechanics HEART: no murmurs, S1 normal and S2 normal ABDOMEN: abdomen soft, non-tender, normo-active bowel sounds, no masses, no rebound or guarding. UPPER EXTREMITIES: upper extremities are grossly normal. LOWER EXTREMITIES: No pitting edema. Calves are equal bilaterally NEURO EXAM: Normal sensorium, cranial nerves II-XII grossly intact, normal speech, no gross weakness of arms, no gross weakness of legs. MEDICAL DECISION MAKING: Patient is a 79-year-old female who presents ER for the above-stated complaint. Upon arrival via EMS she was found to be hypoxic at 75% on room air. She was placed on 4 L nasal cannula. Labs show mild leukopenia 3.8 thousand. No significant anemia. VBG with a pH 7.3 and a CO2 slightly elevated at 62. BMP was fairly unremarkable. Troponin was mildly elevated at 105 I do believe this is likely demand and secondary to hypoxemia. Lipase is unremarkable. Viral panel was positive for influenza. She was given neb treatments, steroids and IV Rocephin. She remained on nasal cannula throughout her stay in the ER. She was updated bedside discussed with the hospitalist for further evaluation management treatment. Consults/Care Managements Discussions: Per MDM Triage Nursing notes reviewed. Limited review of prior medical records performed Vital Signs: reviewed and remarkable for hypoxia Differential diagnosis: Differential diagnoses includes but is not limited to pneumonia, bronchitis, COPD/Asthma exacerbation, pneumothorax, pulmonary embolism, congestive heart failure, acute coronary syndrome ER treatment provided: See below Diagnostics interpreted by me include EKG and cardiac monitoring as listed below: -Cardiac Monitoring: An order was placed for continuous cardiac monitoring. The monitor shows a rate of 70 with sinus rhythm. -ECG: Paced rate of 73 Left axis No PVCs QTc 517 -Laboratory studies:Interpreted by me as stated above in MDM and shown below. Imaging studies: Xrays: As interpreted by me: Portable AP upright 1 view of the chest shows no focal infiltrate CTs show: none Procedures:none Critical Care: I have personally spent 33 minutes of critical care time in the direct management of this patient. This includes bedside care, interpretation of diagnostic studies, and testing, discussion with consultants, patient, and family members, and other required patient management activities. This 33 minutes is in excess of all separately billable procedures. Past Med/Surg History Problem List (Updated 05/10/24 @ 14:50 by Parminder Nair DO) Influenza A (Acute) Elevated troponin (Acute) Shortness of breath (Acute) Acute and chronic respiratory failure with hypoxia (Acute) Influenza A COPD exacerbation Ingrown nail of great toe Leukocytosis (Acute) Elevated troponin (Acute) Hypomagnesemia (Acute) COPD (chronic obstructive pulmonary disease) (Acute) Hypoxia (Acute) Pneumonia Hypomagnesemia Anemia Encounter for pre-operative examination Exposure to COVID-19 virus Acute sinusitis Hypoxia (Acute) Right lower lobe pneumonia (Acute) Bilateral cold feet Numbness and tingling of both feet Bilateral foot pain Muscle cramp, nocturnal Back pain Left low back pain Cardiac pacemaker Encounter for examination following treatment at hospital Hypertension (Acute) Routine health maintenance (Chronic) Abnormal mammogram Arteriosclerotic cardiovascular disease (Chronic) Carotid atherosclerosis Cerebral artery occlusion Encounter for immunization History of coronary artery bypass graft Hypercholesterolemia Intermittent claudication Nonspecific abnormal finding Shingles Trochanteric bursitis NSTEMI (non-ST elevated myocardial infarction) (Acute) Hypoxia (Acute) First degree AV block (Acute) UTI (lower urinary tract infection) (Acute) Lumbar contusion (Acute) Fall due to ice or snow (Acute) Fall (Acute) PAD (peripheral artery disease) Peripheral neuropathy Thoracic kyphosis GERD (gastroesophageal reflux disease) CAD (coronary artery disease), [place] coronary artery COPD (chronic obstructive pulmonary disease) states rarely needs rescue inhaler Status post placement of cardiac pacemaker 06/21/20 Dr. Robert Lorenzo Ambulatory dysfunction (Acute) Radiculopathy Osteoporosis (Chronic) Hypothyroidism (Chronic) Gout Eczema Aortic stenosis Hyperlipidemia (Chronic) HTN (hypertension) (Chronic) Medical History History of skin cancer Hx of non-ST elevation myocardial infarction (NSTEMI) Pacemaker Surgical History Hx of bilateral cataract extraction Hx of CABG Hx of knee surgery Family History Mother Alcohol abuse H/O oral cancer Brother Parkinson disease, symptomatic Colon cancer Denies family history of Ovarian cancer Prostate cancer Myocardial infarction Breast cancer Colorectal cancer Social History Smoking Status: Former smoker Tobacco Type: Cigarettes Age Started Using Tobacco: 16; Age Quit Using Tobacco: 52; packs per day: 1; Second Hand Exposure: No; Do You Dip or Chew Tobacco: No; Hx Alcohol Use: No Hx Substance Use: No Preferred Language: Romansh Communication Ability: Effective Visual Impairment: Limited Hearing Ability: Normal Manager Nicu Required: No Beliefs That Will Affect Care: None marital status: Current Living Situation: Spouse current occupational status: retired How many Children do You have: 1 Feels Safe at Home: Yes Childhood Exposure to Second-Hand Smoke: Yes Diet: regular caffeine: No during the past year weight has: remained stable Dental Care, Regularly: Yes Physical Activity Frequency: Daily Seatbelt Use: always Sunscreen Use: Yes Assistive Devices: None Allergies Allergies Allergy/AdvReac Type Severity Reaction Status Date / Time hydrocodone AdvReac Intermediate VOMITING Verified 05/10/24 11:26 Home Meds Home Medications Medication Instructions Recorded Confirmed cholecalciferol (vitamin D3) 25 1,000 units PO QAM 11/16/18 05/10/24 mcg (1,000 unit) capsule aspirin 81 mg tablet,delayed 81 mg PO QAM 06/20/20 05/10/24 release (Adult Aspirin Regimen) magnesium oxide 400 mg PO DAILY 12/08/22 05/10/24 acetaminophen 500 mg tablet 500 mg PO QID PRN Pain 04/27/23 05/10/24 Previous Rx's Medication Instructions Recorded Spacer for Inhaler #1 ea 12/10/22 albuterol sulfate 90 mcg/actuation 2 puff inhalation QID PRN 12/10/22 aerosol inhaler shortness of breath or wheezing #8.5 grams allopurinol 100 mg tablet 100 mg PO DAILY #90 ea 10/11/23 amlodipine 10 mg tablet 10 mg PO DAILY #90 tabs 10/11/23 atorvastatin 20 mg tablet 20 mg PO QPM #90 tabs 10/11/23 enalapril maleate 20 mg tablet 20 mg PO BID #180 tabs 10/11/23 hydrochlorothiazide 25 mg tablet 25 mg PO QAM #90 tabs 10/11/23 levothyroxine 75 mcg tablet 75 mcg PO DAILY #90 tabs 10/11/23 metoprolol succinate 100 mg 100 mg PO BID #180 tabs 10/11/23 tablet,extended release 24 hr omeprazole 20 mg capsule,delayed 20 mg PO QAM #90 caps 04/17/24 release Results & Data (ED) Vital Signs Vital Signs - 24 hr 05/10/24 09:36 05/10/24 09:50 05/10/24 09:50 Temperature 36.4 C L Temperature Source Oral Pulse Rate 73 84 Pulse Rate [Apical] Pulse Rate from SpO2 Sensor Respiratory Rate 18 Respiratory Effort / Characteristics Blood Pressure 169/59 H Blood Pressure Mean 95 Pulse Oximetry 77 L 77 L Oxygen Delivery Method Room Air Nasal Cannula Oxygen Flow Rate 0 Sepsis New/Unexplained Change in Mental Status No Sepsis Action Taken by Nursing No Action Required Oxygen Flow Rate - Titration 4 Pulse Oximetry Post Tiitration 95 05/10/24 10:00 05/10/24 10:00 05/10/24 10:14 Temperature Temperature Source Pulse Rate 73 Pulse Rate [Apical] 70 Pulse Rate from SpO2 Sensor 73 Respiratory Rate 23 20 Respiratory Effort / Characteristics Non-Labored Spontaneous Blood Pressure 159/73 H Blood Pressure Mean 120 Pulse Oximetry 100 100 Oxygen Delivery Method Nasal Cannula Nasal Cannula Oxygen Flow Rate 4 4 Sepsis New/Unexplained Change in Mental Status Sepsis Action Taken by Nursing Oxygen Flow Rate - Titration Pulse Oximetry Post Tiitration 05/10/24 11:06 Temperature Temperature Source Pulse Rate 101 H Pulse Rate [Apical] Pulse Rate from SpO2 Sensor 102 H Respiratory Rate 24 Respiratory Effort / Characteristics Blood Pressure 119/81 Blood Pressure Mean 93 Pulse Oximetry 100 Oxygen Delivery Method Nasal Cannula Oxygen Flow Rate 3 Sepsis New/Unexplained Change in Mental Status Sepsis Action Taken by Nursing Oxygen Flow Rate - Titration Pulse Oximetry Post Tiitration Laboratory Data 05/10/24 09:40 05/10/24 09:40 Lab Results 05/10/24 05/10/24 05/10/24 Range/Units 09:30 09:40 11:31 WBC 3.88 L (4.8-10.8) K/ul RBC 4.14 L (4.20-5.40) M/uL Hgb 11.6 L (12.0-16.0) g/dl Hct 36.4 L (37.0-47.0) % MCV 87.9 (80.0-100.0) fL MCH 28.0 (25.0-34.0) pg MCHC 31.9 L (32.0-36.0) g/dL RDW Std Deviation 45.9 (36.4-46.3) fL RDW Coeff of Chani 14.3 (11.5-14.5) % Plt Count 152 (130-400) K/uL MPV 11.1 (9.4-12.4) fL Immature Gran % (Auto) 0.3 % Neut % (Auto) 57.9 % Lymph % (Auto) 21.9 % Butler % (Auto) 19.1 % Eos % (Auto) 0.5 % Baso % (Auto) 0.3 % Neut # (Auto) 2.25 (1.40-6.50) K/uL Lymph # (Auto) 0.85 L (1.20-3.40) K/uL Butler # (Auto) 0.74 H (0.11-0.59) K/uL Eos # (Auto) 0.02 (0.00-0.50) K/uL Baso # (Auto) 0.01 (0.00-0.20) K/uL Immature Gran # (Auto) 0.01 (0.01-0.20) K/uL VBG pH 7.37 (7.36-7.41) VBG pCO2 62 H (38-50) mmHg VBG pO2 47 mmHg VBG HCO3 36 mmol/L VBG O2 Saturation 80.1 % VBG Base Excess 8.2 mEq/L Sodium 138 (136-145) mmol/L Potassium 4.0 (3.5-5.1) mmol/L Chloride 99 (98-107) mmol/L Carbon Dioxide 31 (21-32) mmol/L Anion Gap 8 (3-11) BUN 39 H (6-23) mg/dl Creatinine 1.32 H (0.6-1.2) mg/dl Est Cr Clr Drug Dosing 32.3 ml/min eGFR 41.07 BUN/Creatinine Ratio 29.5 H (10-20) Glucose 88 (70-99(Fasting)) mg/dl Calcium 8.9 (8.6-10.3) mg/dl Total Bilirubin 0.4 (0.2-1.0) mg/dl AST 39 (13-39) U/L ALT 16 (7-52) U/L Alkaline Phosphatase 61 (34-104) U/L Troponin I High Sens 105.9 H* 102.6 H* (0-14) pg/ml Total Protein 7.4 (6.0-8.3) gm/dl Albumin 3.8 (3.4-5.0) gm/dl Globulin 3.6 (2.5-4.0) gm/dl Albumin/Globulin Ratio 1.1 (0.9-2) Lipase 103 H (11-82) U/L Adenovirus (PCR) Not Detected (NotDetected) B. pertussis DNA (PCR) Not Detected (NotDetected) B.parapertussis DNA PCR Not Detected (NotDetected) C. pneumoniae DNA (PCR) Not Detected (NotDetected) Coronavirus OC43 (PCR) Not Detected (NotDetected) Coronavirus HKU1 (PCR) Not Detected (NotDetected) Coronavirus 229E (PCR) Not Detected (NotDetected) SARS-CoV-2 (PCR) Not Detected (NotDetected) Coronavirus NL63 (PCR) Not Detected (NotDetected) Human Metapneumovir PCR Not Detected (NotDetected) Influenza A (H3) PCR DETECTED A (NotDetected) Influenza Type B (PCR) Not Detected (NotDetected) M. pneumoniae (PCR) Not Detected (NotDetected) Parainfluenza 1 (PCR) Not Detected (NotDetected) Parainfluenza 2 (PCR) Not Detected (NotDetected) Parainfluenza 3 (PCR) Not Detected (NotDetected) Parainfluenza 4 (PCR) Not Detected (NotDetected) RSV (PCR) Not Detected (NotDetected) Entero/Rhino (PCR) Not Detected (NotDetected) Administered Medications Albuterol (Albut/Ipratrop 3mg/0.5mg Neb 3 Ml Vial) 3 ml NEB Q6R SALVATORE; Protocol Stop: 06/09/24 14:01 Last Admin: 05/10/24 14:37 Dose: 3 ml Documented By: [facility] [place] Discontinued Medications Albuterol (Albut/Ipratrop 3mg/0.5mg Neb 3 Ml Vial) 9 ml NEB NOW STA; Protocol Stop: 05/10/24 09:34 Last Admin: 05/10/24 10:13 Dose: 9 ml Documented By: Doxycycline Hyclate (Doxycycline Hyclate 100 Mg Cap) 100 mg PO NOW STA Stop: 05/10/24 11:42 Last Admin: 05/10/24 12:29 Dose: 100 mg Documented By: [facility] [place] Guaifenesin (Guaifenesin 600 Mg Tabcr) 600 mg PO NOW STA Stop: 05/10/24 11:42 Last Admin: 05/10/24 12:29 Dose: 600 mg Documented By: [facility] [place] Ceftriaxone Sodium (Rocephin) 2,000 mg in 50 mls @ 100 mls/hr IV NOW STA Stop: 05/10/24 10:02 Last Infusion: 05/10/24 10:46 Dose: Infused Documented By: Admin: 05/10/24 10:16 Dose: 100 mls/hr Documented By: LINDA Sodium Chloride (Nss) 500 mls @ 999 mls/hr IV .Q31M ONE Stop: 05/10/24 12:17 Last Admin: 05/10/24 12:33 Dose: 999 mls/hr Documented By: ADAMS Methylprednisolone (Methylprednisolone 125 Mg/2 Ml Vial) 40 mg IV NOW STA Stop: 05/10/24 09:34 Last Admin: 05/10/24 10:15 Dose: 40 mg Documented By: LINDA Oseltamivir Phosphate (Oseltamivir Phosphate 75 Mg Cap) 75 mg PO NOW STA; Protocol Stop: 05/10/24 11:32 Last Admin: 05/10/24 12:29 Dose: 75 mg Documented By: ADAMS Imaging Data Radiologist's Impression: Chest X-Ray 05/10/24 09:34 XR chest 1V portable CLINICAL HISTORY: Chest pain, nonspecific COMPARISON STUDY: 06/14/2023 FINDINGS: Stable CABG and pacemaker. Stable cardiomegaly without pulmonary vascular congestion. No effusion, consolidation, or pneumothorax. IMPRESSION: No acute findings. ACT 112: Negative or not required by law. Electronically signed by: Abdoulaye Cooper M.D. 05/10/2024 10:24 AM Discharge Plan Visit Data Chief Complaint: Shortness of Breath/Dyspnea Stated Complaint: SOB ED Provider: Parminder Nair Discharge Problem: Acute and chronic respiratory failure with hypoxia, Shortness of breath, Elevated troponin, Influenza A Patient Disposition: Admitted As Inpatient Discharge Instructions Interventions: ED Discharge Assessment Last Done: 05/10/24 14:04
[2024-05-10 09:56] LABS: Base Excess VBG 8.2 mEq/L; HCO3 VBG 36 mmol/L; Oxygen Saturation VBG 80.1 %; PCO2 VBG 62 mmHg (38-50); PO2 VBG 47 mmHg; pH VBG 7.37 (7.36-7.41)
[2024-05-10 10:02] LABS: Basophils # (auto) 0.01 K/uL (0.00-0.20); Basophils % (auto) 0.3 %; Eosinophils # (auto) 0.02 K/uL (0.00-0.50); Eosinophils % (auto) 0.5 %; Hematocrit (blood only) 36.4 % (37.0-47.0); Hemoglobin 11.6 g/dl (12.0-16.0); Immature Granulocytes # (auto) 0.01 K/uL (0.01-0.20); Immature Granulocytes % (auto) 0.3 %; Lymphocytes # (auto) 0.85 K/uL (1.20-3.40); Lymphocytes % (auto) 21.9 %; Mean Corpuscular Hgb Conc 31.9 g/dL (32.0-36.0); Mean Corpuscular Volume 87.9 fL (80.0-100.0); Mean Platelet Volume 11.1 fL (9.4-12.4); Monocytes # (auto) 0.74 K/uL (0.11-0.59); Monocytes % (auto) 19.1 %; Neutrophils # (auto) 2.25 K/uL (1.40-6.50); Neutrophils % (auto) 57.9 %; Platelet Count 152 K/uL (130-400); RDW Coefficient of Variation 14.3 % (11.5-14.5); RDW Standard Deviation 45.9 fL (36.4-46.3); Red Blood Count 4.14 M/uL (4.20-5.40); White Blood Count 3.88 K/ul (4.8-10.8)
[2024-05-10] MEDS: ALBUT/IPRATROP 3MG/0.5MG NEB 3 ML VIAL NEB STA (10:13)
[2024-05-10] MEDS: methylPREDNISolone 125 MG/2 ML VIAL IV STA (10:15)
[2024-05-10] MEDS: cefTRIAXone SODIUM 2,000 MG/50 ML BAG IV STA (10:16)
[2024-05-10 10:22] LABS: Albumin Globulin Ratio 1.1 (0.9-2); Albumin Level 3.8 gm/dl (3.4-5.0); BUN Creatinine Ratio 29.5 (10-20); Bilirubin,Total 0.4 mg/dl (0.2-1.0); Calcium 8.9 mg/dl (8.6-10.3); Creatinine Clr Calc Pharmacy 32.3 ml/min; Globulin 3.6 gm/dl (2.5-4.0); Total Protein 7.4 gm/dl (6.0-8.3)
--- NOTE | 2024-05-10 10:25 | XRay Report ---
XR chest 1V portable CLINICAL HISTORY: Chest pain, nonspecific COMPARISON STUDY: 06/14/2023 FINDINGS: Stable CABG and pacemaker. Stable cardiomegaly without pulmonary vascular congestion. No ef fusion, consolidation, or pneumothorax. IMPRESSION: No acute findings. ACT 112: Negative or not required by law. Electronically signed by: Abdoulaye Cooper M.D. 05/10/2024 10:24 AM
[2024-05-10 10:38] LABS: Troponin I High Sensitivity 105.9 pg/ml (0-14)
[2024-05-10 11:04] LABS: Adenovirus PCR Not Detected (NotDetected); Bordetella parapertussis PCR Not Detected (NotDetected); Bordetella pertussis PCR Not Detected (NotDetected); Chlamydia pneumoniae PCR Not Detected (NotDetected); Coronavirus 229E PCR Not Detected (NotDetected); Coronavirus CoV-2 (COVID19)PCR Not Detected (NotDetected); Coronavirus HKU1 PCR Not Detected (NotDetected); Coronavirus NL63 PCR Not Detected (NotDetected); Coronavirus OC43PCR Not Detected (NotDetected); Human Metapneumovirus PCR Not Detected (NotDetected); Influenza A (H3) PCR DETECTED (NotDetected); Influenza B PCR Not Detected (NotDetected); Mycoplasma pneumoniae PCR Not Detected (NotDetected); Parainfluenza Virus 1 PCR Not Detected (NotDetected); Parainfluenza Virus 2 PCR Not Detected (NotDetected); Parainfluenza Virus 3 PCR Not Detected (NotDetected); Parainfluenza Virus 4 PCR Not Detected (NotDetected); Respiratory Syncytial VirusPCR Not Detected (NotDetected); Rhinovirus/Enterovirus PCR Not Detected (NotDetected)
--- NOTE | 2024-05-10 11:08 | History & Physical Report ---
Date of Service May 10, 2024 Assessment & Plan (1) COPD exacerbation: (2) Influenza A: (3) Elevated troponin: (4) Hypertension: Plan Renuka is a 79-year-old female with COPD, [place], pacemaker, hypertension, hyperlipidemia/CAD, hypothyroid and PAD in place who presents to the ER via EMS for shortness of breath. Found to have Influenza A and will also treat as COPD exacerbation. #Hypoxia/COPD exacerbation/ Influenza A Chest x-ray without acute finding. Sputum culture pending Start Tamiflu - renally adjusted Continue Methylpred 40 mg IV every 12 hours. Continue ceftriaxone 2 g IV every 24 hours. Doxycycline 100mg PO BID Scheduled Budesonide nebs BID, formoterol nebs BID and duonebs Supportive care: Mucinex, flutter valve, incentive spirometer Wean O2 as able, baseline room air, goal > 92% PT/OT #Elevated troponin/ Pacemaker in place 105.9 on admission, repeat pending EKG: Paced with PVCs,No ST elevation. Denies Chest pain. Suspect demand with increased work of breathing and poor renal clearance. Continue to trend. #HTN/HLD/CAD Continue ASA, statin, metoprolol Hold HCTZ and enalapril with slight bump in kidney function. will give 500cc NSS AM BMP Gout - continue allopurinol Hypothyroid - continue Synthroid GERD - continue PPI Dispo: admit to med/tele DVT proh: lovenox code status: DNR/DNI History of Present Illness Chief Complaint: SOB Primary Care Provider: Katarzyna Subramanian MD Renuka is a 79-year-old female with COPD, [place], pacemaker, hypertension, hyperlipidemia/CAD, hypothyroid and PAD in place who presents to the ER via EMS for shortness of breath. Found by EMS and she was 51% on room air. Reports having a cold for the last 2 to 3 days, lives at home with her who is also sick. he went to the doctor this morning but no formal diagnosis. Renuka endorses cough but denies increased sputum production. Subjective fevers at home but has not taken her temperature. Reports dry heaving yesterday but no vomiting or increased abdominal pain. Does report fall at home over the last few days, did not hit her head. Does not usually use assistive devices. ED course: Albuterol neb x 1 hour Methylprednisone 40 mg IV Ceftriaxone 2 g IV Allergies Allergy/AdvReac Type Severity Reaction Status Date / Time hydrocodone AdvReac Intermediate VOMITING Verified 05/10/24 11:26 Home Medications Medication Instructions Recorded Confirmed Type cholecalciferol (vitamin D3) 25 1,000 units PO QAM 11/16/18 05/10/24 History mcg (1,000 unit) capsule aspirin 81 mg tablet,delayed 81 mg PO QAM 06/20/20 05/10/24 History release (Adult Aspirin Regimen) magnesium oxide 400 mg PO DAILY 12/08/22 05/10/24 History Spacer for Inhaler #1 ea 12/10/22 04/13/24 Rx albuterol sulfate 90 mcg/actuation 2 puff inhalation QID PRN 12/10/22 05/10/24 Rx aerosol inhaler shortness of breath or wheezing #8.5 grams acetaminophen 500 mg tablet 500 mg PO QID PRN Pain 04/27/23 05/10/24 History allopurinol 100 mg tablet 100 mg PO DAILY #90 ea 10/11/23 05/10/24 Rx amlodipine 10 mg tablet 10 mg PO DAILY #90 tabs 10/11/23 05/10/24 Rx atorvastatin 20 mg tablet 20 mg PO QPM #90 tabs 10/11/23 05/10/24 Rx enalapril maleate 20 mg tablet 20 mg PO BID #180 tabs 10/11/23 05/10/24 Rx hydrochlorothiazide 25 mg tablet 25 mg PO QAM #90 tabs 10/11/23 05/10/24 Rx levothyroxine 75 mcg tablet 75 mcg PO DAILY #90 tabs 10/11/23 05/10/24 Rx metoprolol succinate 100 mg 100 mg PO BID #180 tabs 10/11/23 05/10/24 Rx tablet,extended release 24 hr omeprazole 20 mg capsule,delayed 20 mg PO QAM #90 caps 04/17/24 05/10/24 Rx release Past Med/Surg History Problem List (Updated 05/10/24 @ 14:50 by Parminder Nair DO) Influenza A (Acute) Elevated troponin (Acute) Shortness of breath (Acute) Acute and chronic respiratory failure with hypoxia (Acute) Influenza A COPD exacerbation Ingrown nail of great toe Leukocytosis (Acute) Elevated troponin (Acute) Hypomagnesemia (Acute) COPD (chronic obstructive pulmonary disease) (Acute) Hypoxia (Acute) Pneumonia Hypomagnesemia Anemia Encounter for pre-operative examination Exposure to COVID-19 virus Acute sinusitis Hypoxia (Acute) Right lower lobe pneumonia (Acute) Bilateral cold feet Numbness and tingling of both feet Bilateral foot pain Muscle cramp, nocturnal Back pain Left low back pain Cardiac pacemaker Encounter for examination following treatment at hospital Hypertension (Acute) Routine health maintenance (Chronic) Abnormal mammogram Arteriosclerotic cardiovascular disease (Chronic) Carotid atherosclerosis Cerebral artery occlusion Encounter for immunization History of coronary artery bypass graft Hypercholesterolemia Intermittent claudication Nonspecific abnormal finding Shingles Trochanteric bursitis NSTEMI (non-ST elevated myocardial infarction) (Acute) Hypoxia (Acute) First degree AV block (Acute) UTI (lower urinary tract infection) (Acute) Lumbar contusion (Acute) Fall due to ice or snow (Acute) Fall (Acute) PAD (peripheral artery disease) Peripheral neuropathy Thoracic kyphosis GERD (gastroesophageal reflux disease) CAD (coronary artery disease), [place] coronary artery COPD (chronic obstructive pulmonary disease) states rarely needs rescue inhaler Status post placement of cardiac pacemaker 06/21/20 Dr. Robert Lorenzo Ambulatory dysfunction (Acute) Radiculopathy Osteoporosis (Chronic) Hypothyroidism (Chronic) Gout Eczema Aortic stenosis Hyperlipidemia (Chronic) HTN (hypertension) (Chronic) Medical History History of skin cancer Hx of non-ST elevation myocardial infarction (NSTEMI) Pacemaker Surgical History Hx of bilateral cataract extraction Hx of CABG Hx of knee surgery Family History Mother Alcohol abuse H/O oral cancer Brother Parkinson disease, symptomatic Colon cancer Denies family history of Ovarian cancer Prostate cancer Myocardial infarction Breast cancer Colorectal cancer Social History Smoking Status: Former smoker Tobacco Type: Cigarettes Age Started Using Tobacco: 16; Age Quit Using Tobacco: 52; packs per day: 1; Second Hand Exposure: No; Do You Dip or Chew Tobacco: No; Hx Alcohol Use: Yes Alcohol type: wine Hx Substance Use: No Preferred Language: Malay Communication Ability: Effective Visual Impairment: Limited Hearing Ability: Normal 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 Room Required: No Beliefs That Will Affect Care: None marital status: Current Living Situation: Spouse Current Living Situation Comment: home c/ spouse, ramp to enter current occupational status: retired How many Children do You have: 1 Feels Safe at Home: Yes Safety Concerns: Feels Safe At This Time Childhood Exposure to Second-Hand Smoke: Yes Diet: regular caffeine: No during the past year weight has: remained stable Dental Care, Regularly: Yes Physical Activity Frequency: Daily Seatbelt Use: always Sunscreen Use: Yes Assistive Devices: None Review of Systems Review of Systems: All systems reviewed & are unremarkable except as noted in Subjective Physical Exam Physical Exam: General: NAD, VS as above HEENT: MM Dry Resp:completing hour long neb, expiratory wheezing upper rodríguez, dropped into 70s with transition for neb to NC, recovered on 3L, poor airmovement CV: tachycardic but regular, no murmur, Abd: normal bowel sounds, non tender, negative rendon sign Extremities: Moves all extremities, no edema Neuro: A&O x3, Results & Data Results & Data Vital Signs (Past 12 Hours) Vital Signs Temp Pulse Pulse Resp BP Pulse Ox O2 Del Method 05/10/24 10:14 70 20 100 Nasal Cannula 05/10/24 10:00 159/73 H 05/10/24 10:00 73 23 100 Nasal Cannula 05/10/24 09:50 77 L Nasal Cannula 05/10/24 09:50 97.5 F L 84 18 169/59 H 77 L Room Air 05/10/24 09:36 73 O2 Flow Rate 05/10/24 10:14 4 05/10/24 10:00 05/10/24 10:00 4 05/10/24 09:50 0 05/10/24 09:50 05/10/24 09:36 Laboratory Results CBC, chemistry, VBG reviewed troponin reviewed lipase reviewed Diagnostic Findings cxr reviewed Supervising Physician Co-Signing Physician Notes I personally saw and examined the patient. I independently reviewed the labs, EKG, imaging, problem list, medication list, past medical history and family history. I verified all kwok points and agree with Aretha Woodson PA-C with the following exceptions and/or additions: 79 year old female presents to the ER with shortness of breath, nausea and cough. O/E HS RRR, no murmurs, no accessory muscle use, bilateral expiratory wheezing, Abdo SNT A/P Influenza A - Tamiflu COPD exacerbation - Solu-Medrol, Duonebs, Formoterol, Budesonide, doxycycline Hypoxia - aim O2 sats > 90% Hypertension - agree with holding HCTZ and enalapril pending repeat BMP PG Care Time/CCT Total # of Minutes Spent Total Time Spent with Patient: Total time spent is greater than 50% in coordination of care (as documented) at patient's floor/unit and/or counseling patient: Coding Level of Care Code 00043 INT INP/OBS CARE 3/75MIN Diagnoses COPD exacerbation J44.1 Influenza A J10.1 Elevated troponin R79.89 Primary hypertension I10 Hypertension type: primary hypertension (4) Hypertension Hypertension type: primary hypertension Qualified Code(s): I10 - Essential (primary) hypertension
--- NOTE | 2024-05-10 11:30 | Electrocardiogram Report ---
Test Reason : Blood Pressure : */* mmHG Vent. Rate : 73 BPM Atrial Rate : 73 BPM P-R Int : 192 ms QRS Dur : 174 ms QT Int : 470 ms P-R-T Axes : 7 -81 88 degrees QTcB Int : 517 ms AV dual-paced rhythm with occasional Premature ventricular complexes Abnormal ECG When compared with ECG of 15-Jun-2023 12:08, Premature ventricular complexes are now Present Vent. rate has decreased by 48 bpm Confirmed by Hira Miguel ([id number]) on 05/10/2024 11:30:02 AM Referred By: Confirmed By: Hira Miguel
[2024-05-10] MEDS: OSELTAMIVIR PHOSPHATE 75 MG CAP PO STA (12:29)
[2024-05-10] MEDS: DOXYCYCLINE HYCLATE 100 MG CAP PO STA (12:29)
[2024-05-10] MEDS: guaiFENesin 600 MG TABCR PO STA (12:29)
[2024-05-10] MEDS: SODIUM CHLORIDE 0.9% 500 ML IV ONE (12:33)
[2024-05-10] MEDS ORDERED: POLYETHYLENE (MIRALAX) 17 GM PACK PO PRN (14:02)
[2024-05-10] MEDS: ALBUT/IPRATROP 3MG/0.5MG NEB 3 ML VIAL NEB SCH (14:37)
[2024-05-10] MEDS: BUDESONIDE 0.25 MG/2 ML VIAL (PULMICORT) NEB SCH (17:53)
[2024-05-10] MEDS: FORMOTEROL 20 MCG/2 ML VIAL NEB SCH (17:53)
[2024-05-10] MEDS: FORMOTEROL 20 MCG/2 ML VIAL ONE (17:54)
[2024-05-10] MEDS: guaiFENesin 600 MG TABCR PO SCH (20:23)
[2024-05-10] MEDS: ATORVASTATIN 20 MG TAB PO SCH (20:23)
[2024-05-10] MEDS: DOXYCYCLINE HYCLATE 100 MG CAP PO SCH (20:23)
[2024-05-10] MEDS: METOPROLOL SUCC 50MG EXT REL TAB PO SCH (20:23)
[2024-05-10] MEDS: methylPREDNISolone 40 MG in SYRINGE 0 ML IV SCH (20:24)
[2024-05-10] MEDS: OSELTAMIVIR PHOSPHATE SUSP 30 MG/5 ML UDP PO SCH (20:24)
[2024-05-10] MEDS ORDERED: methylPREDNISolone 125 MG/2 ML VIAL IV SCH (21:00)
[2024-05-11] MEDS: ACETAMINOPHEN 325 MG TAB PO PRN (05:10)
[2024-05-11 06:00] LABS: BUN Creatinine Ratio 34.2 (10-20); Calcium 8.6 mg/dl (8.6-10.3); Creatinine Clr Calc Pharmacy 29.2 ml/min; Potassium 4.2 mmol/L (3.5-5.1)
[2024-05-11 06:02] LABS: Hematocrit (blood only) 32.6 % (37.0-47.0); Hemoglobin 10.5 g/dl (12.0-16.0); Immature Granulocytes # (auto) 0.02 K/uL (0.01-0.20); Immature Granulocytes % (auto) 0.6 %; Lymphocytes # (auto) 0.55 K/uL (1.20-3.40); Mean Corpuscular Hemoglobin 28.1 pg (25.0-34.0); Mean Corpuscular Hgb Conc 32.2 g/dL (32.0-36.0); Mean Corpuscular Volume 87.2 fL (80.0-100.0); Mean Platelet Volume 11.3 fL (9.4-12.4); Monocytes # (auto) 0.31 K/uL (0.11-0.59); Neutrophils # (auto) 2.56 K/uL (1.40-6.50); Neutrophils % (auto) 74.4 %; Platelet Count 150 K/uL (130-400); RDW Standard Deviation 44.6 fL (36.4-46.3); Red Blood Count 3.74 M/uL (4.20-5.40); White Blood Count 3.44 K/ul (4.8-10.8)
[2024-05-11] MEDS: LEVOTHYROXINE SODIUM 75 MCG TABLET PO SCH (07:48)
[2024-05-11] MEDS: ENOXAPARIN INJ 40 MG/0.4 ML SYR SQ SCH (08:57)
[2024-05-11] MEDS: PANTOprazole 40 MG TAB PO SCH (08:58)
[2024-05-11] MEDS: MAGNESIUM OXIDE 400 MG TAB PO SCH (08:58)
[2024-05-11] MEDS: ASPIRIN 81 MG ECTAB PO SCH (08:58)
[2024-05-11] MEDS: amLODIPine BESYLATE 5 MG TAB PO SCH (08:58)
[2024-05-11] MEDS ORDERED: cefTRIAXone SODIUM 2,000 MG/50 ML BAG IV SCH (09:00)
[2024-05-11] MEDS: allopurinoL 100 MG TAB PO SCH (09:04)
--- NOTE | 2024-05-11 22:52 | Hospitalist Progress Note ---
Date of Service May 11, 2024 Assessment & Plan (1) COPD exacerbation: (2) Influenza A: (3) Elevated troponin: (4) Hypertension: Plan Renuka is a 79-year-old female with COPD, [place], pacemaker, hypertension, hyperlipidemia/CAD, hypothyroid and PAD in place who presents to the ER via EMS for shortness of breath. Found to have Influenza A and will also treat as COPD exacerbation. #Hypoxia/COPD exacerbation/ Influenza A Chest x-ray without acute finding. Sputum culture pending Start Tamiflu - renally adjusted will stop rocephin, continue doxycycline for atypical coverage. stopping corticosteroids as this can increase mortality in flu patient. Scheduled Budesonide nebs BID, formoterol nebs BID and duonebs Supportive care: Mucinex, flutter valve, incentive spirometer Wean O2 as able, baseline room air, goal > 92% PT/OT #Elevated troponin/ Pacemaker in place / demand ischemia 105.9 on admission, repeat pending EKG: Paced with PVCs,No ST elevation. Denies Chest pain. Suspect demand with increased work of breathing and poor renal clearance. now down trending. #HTN/HLD/CAD Continue ASA, statin, metoprolol Hold HCTZ and enalapril with slight bump in kidney function. will give 500cc NSS AM BMP Gout - continue allopurinol Hypothyroid - continue Synthroid GERD - continue PPI Dispo: admit to med/tele DVT proh: ronynox code status: DNR/DNI Admission and Anticipated Discharge Date Admission Date: May 10, 2024 Subjective Patient reports not being back at baseline. She continues to require oxygen. Physical Exam Physical Exam: General: NAD. HEENT: eyes non icteric, sclera and conjunctiva WNL, EOMI, PERRLA. Neck: Supple, no lymphadenopathy. NO JVD or carotid bruits. CVS: S1S2 present. rate and rhythm WNL. No murmur. +pacemaker. Respiratory: normal respiratory effort. No respiratory distress. Breath sounds present B/L. No wheezing, rhonchi, or rales. Extremities: no edema. No calf tenderness or cords. Results & Data Results & Data Vital Signs (Past 12 Hours) Vital Signs Temp Pulse Pulse Resp BP BP Pulse Ox 05/11/24 20:03 36.7 C 69 18 162/68 H 91 05/11/24 19:48 68 18 95 02/06/25 17:06 69 18 111/75 96 05/11/24 16:06 73 19 97 05/11/24 15:30 67 17 94 05/11/24 14:08 05/11/24 14:03 74 21 95 05/11/24 13:46 70 22 93 05/11/24 13:03 63 19 95 05/11/24 12:18 63 18 95 05/11/24 11:34 05/11/24 11:30 64 23 96 05/11/24 11:00 69 18 95 Pulse Ox Pulse Ox Pulse Ox Pulse Ox O2 Del Method O2 Del Method O2 Flow Rate 05/11/24 20:03 Nasal Cannula 4 05/11/24 19:48 Nasal Cannula 4 05/11/24 17:06 05/11/24 16:06 05/11/24 15:30 05/11/24 14:08 93 90 72 L 05/11/24 14:03 05/11/24 13:46 Nasal Cannula 2 05/11/24 13:03 05/11/24 12:18 05/11/24 11:34 86 L Room Air 05/11/24 11:30 Nasal Cannula 2 05/11/24 11:00 Nasal Cannula 2 O2 Flow Rate O2 Flow Rate O2 Flow Rate 05/11/24 20:03 05/11/24 19:48 05/11/24 17:06 05/11/24 16:06 05/11/24 15:30 05/11/24 14:08 2 2 0 05/11/24 14:03 05/11/24 13:46 05/11/24 13:03 05/11/24 12:18 05/11/24 11:34 05/11/24 11:30 05/11/24 11:00 PG Care Time/CCT Total # of Minutes Spent Total Time Spent with Patient: Total time spent is greater than 50% in coordination of care (as documented) at patient's floor/unit and/or counseling patient: Coding Level of Care Code 40536 SUB INP/OBS CARE 3/50MIN Diagnoses COPD exacerbation J44.1 Influenza A J10.1 Elevated troponin R79.89 Primary hypertension I10 Hypertension type: primary hypertension (4) Hypertension Hypertension type: primary hypertension Qualified Code(s): I10 - Essential (primary) hypertension
[2024-05-12 06:25] LABS: Hematocrit (blood only) 36.2 % (37.0-47.0); Hemoglobin 11.5 g/dl (12.0-16.0); Mean Corpuscular Hemoglobin 28.1 pg (25.0-34.0); Mean Corpuscular Hgb Conc 31.8 g/dL (32.0-36.0); Mean Corpuscular Volume 88.5 fL (80.0-100.0); Mean Platelet Volume 10.8 fL (9.4-12.4); Platelet Count 200 K/uL (130-400); RDW Standard Deviation 45.2 fL (36.4-46.3); Red Blood Count 4.09 M/uL (4.20-5.40); White Blood Count 7.87 K/ul (4.8-10.8)
[2024-05-12 06:52] LABS: BUN Creatinine Ratio 40.5 (10-20); C Reactive Protein 1.85 mg/dl (0-0.5); Calcium 9.1 mg/dl (8.6-10.3); Creatinine Clr Calc Pharmacy 28.8 ml/min; Potassium 4.1 mmol/L (3.5-5.1)
[2024-05-12] MEDS: ENOXAPARIN INJ 30 MG/0.3 ML SYR SQ SCH (08:28)
[2024-05-12] MEDS: OSELTAMIVIR PHOSPHATE SUSP 30 MG/5 ML UDP PO SCH (10:37)
[2024-05-12 11:42] VITALS: TEMP 97.3
[2024-05-12 12:48] VITALS: RESP 19; O2SAT 90
[2024-05-12 14:45] VITALS: BP 144/72; PULSE 60
--- NOTE | 2024-05-12 14:48 | Discharge Summary ---
Discharge Summary Date of Service May 12, 2024 Principal Dx & Hospital Course #1 = Principal Diagnosis (1) COPD exacerbation: (2) Influenza A: (3) Elevated troponin: (4) Hypertension: Plan Renuka is a 79-year-old female with COPD, [place], pacemaker, hypertension, hyperlipidemia/CAD, hypothyroid and PAD in place who presents to the ER via EMS for shortness of breath. Found to have Influenza A and will also treat as COPD exacerbation. #Hypoxia/COPD exacerbation/ Influenza A *Acute and chronic respiratory failure with hypoxia Chest x-ray without acute finding. Sputum culture pending Start Tamiflu - renally adjusted will stop rocephin, continue doxycycline for atypical coverage. stopping corticosteroids as this can increase mortality in flu patient. Scheduled Budesonide nebs BID, formoterol nebs BID and duonebs Supportive care: Mucinex, flutter valve, incentive spirometer Wean O2 as able, baseline room air, goal > 92% PT/OT #Elevated troponin/ Pacemaker in place / demand ischemia 105.9 on admission, repeat pending EKG: Paced with PVCs,No ST elevation. Denies Chest pain. Suspect demand with increased work of breathing and poor renal clearance. now down trending. #HTN/HLD/CAD Continue ASA, statin, metoprolol Hold HCTZ and enalapril with slight bump in kidney function. will give 500cc NSS AM BMP Gout - continue allopurinol Hypothyroid - continue Synthroid GERD - continue PPI Dispo: admit to med/tele DVT proh: lovenox code status: DNR/DNI Admission HPI Per Admitting Provider Renuka is a 79-year-old female with COPD, [place], pacemaker, hypertension, hyperlipidemia/CAD, hypothyroid and PAD in place who presents to the ER via EMS for shortness of breath. Found by EMS and she was 51% on room air. Reports having a cold for the last 2 to 3 days, lives at home with her who is also sick. he went to the doctor this morning but no formal diagnosis. Renuka endorses cough but denies increased sputum production. Subjective fevers at home but has not taken her temperature. Reports dry heaving yesterday but no vomiting or increased abdominal pain. Does report fall at home over the last few days, did not hit her head. Does not usually use assistive devices. ED course: Albuterol neb x 1 hour Methylprednisone 40 mg IV Ceftriaxone 2 g IV Discharge Plan Discharge Items Patient Disposition: Home - Self-Care Reason For Visit: FLU A, COPD EXACERABATION Discharge Diagnosis: FLU A Activity: Resume your previous activity Non-emergency contact: Primary Care Provider Call non-emergency contact if: you have any medication questions Follow-up/Referrals: Katarzyna Subramanian MD [Primary Care Provider] - 05/17/24 1:00 pm Diet: Heart Healthy Addtl Attending Provider Instructions: You were seen for a flu infection. We will recommend to continue taking tamiflu once daily starting tomorrow. You will also continue the antibiotic doxycycline twice a day but this will be started tonight. You will continue taking oxygen 2 liters at rest and 4 liters on ambulation. Recommend followup with PCP in 1-2 weeks. Pending Studies at Discharge: No Stand-Alone Forms: My [facility] [employer] Interactive, Smoking Cessation Medications and DC Order Prescriptions: New doxycycline hyclate 100 mg Capsule 100 mg PO BID Qty: 6 0RF guaifenesin [Mucinex] 600 mg Tablet Extended Release 12hr 600 mg PO Q12 Qty: 30 0RF oseltamivir 30 mg capsule 30 mg PO DAILY 5 Days Qty: 5 0RF Continued omeprazole 20 mg capsule,delayed release(DR/EC) 20 mg PO QAM Qty: 90 1RF cholecalciferol (vitamin D3) 1,000 unit capsule 1,000 units PO QAM albuterol sulfate 90 mcg/actuation HFA aerosol inhaler 2 puff inhalation QID PRN (Reason: shortness of breath or wheezing) Qty: 8.5 0RF (DME) Spacer for Inhaler Misc See Rx Instructions .ROUTE .MEDSUPPLY Qty: 1 0RF Rx Instructions: As directed allopurinol 100 mg tablet 100 mg PO DAILY Qty: 90 1RF amlodipine 10 mg tablet 10 mg PO DAILY Qty: 90 1RF atorvastatin 20 mg tablet 20 mg PO QPM Qty: 90 3RF levothyroxine 75 mcg tablet 75 mcg PO DAILY Qty: 90 3RF metoprolol succinate 100 mg tablet extended release 24 hr 100 mg PO BID Qty: 180 1RF magnesium oxide 400 mg magnesium capsule 400 mg PO DAILY aspirin [Adult Aspirin Regimen] 81 mg tablet,delayed release (DR/EC) 81 mg PO QAM acetaminophen 500 mg Tablet 500 mg PO QID PRN (Reason: Pain) Held enalapril maleate 20 mg tablet 20 mg PO BID Qty: 180 3RF Hold Instructions: Provider's Order hydrochlorothiazide 25 mg tablet 25 mg PO QAM Qty: 90 1RF Hold Instructions: Provider's Order Discharge Orders: Discharge Order (Routine); Ordered 05/12/24 Ordered By: Oc Cantrell Admission Data Admit Date/Time: 05/10/24 11:41 Attending Provider: Oc Cantrell Admit Provider: Rasheed Cabezas Primary Care Provider: Katarzyna Subramanian Other Providers: Rasheed Cabezas Other Interventions: Discharge Summary Assessment (RN) Last Done: 05/12/24 14:44 Hospital Stay Data Consultations 05/10/24 10:14 ED Decision to Admit Stat Pending Results Patient Have Any Pending Studies at Discharge: No Discharge Instructions Given to Patient (Per Discharging Provider) You were seen for a flu infection. We will recommend to continue taking tamiflu once daily starting tomorrow. You will also continue the antibiotic doxycycline twice a day but this will be started tonight. You will continue taking oxygen 2 liters at rest and 4 liters on ambulation. Recommend followup with PCP in 1-2 weeks. Coding Diagnoses COPD exacerbation J44.1 Influenza A J10.1 Elevated troponin R79.89 Primary hypertension I10 Hypertension type: primary hypertension
== END 2024-05-12 17:26 | disposition home or self-care (01) | DRG 193 ==
LOC: ED 09:24 → EDINP 11:41 → SUATTDRO 11:41 → 2W 05-11 14:04